=== PATIENT | male | born 1960 | race Caucasian/White ===

== ENCOUNTER 2017-05-30 13:53 | Outpatient (CLI) | payer OTHER ==
[~2017-05-30] VITALS: Ht 172.7 cm; Wt 82.0 kg
[2017-05-30 14:22] VITALS: Ht 172.7 cm; Wt 82.0 kg
[2017-05-30 14:23] VITALS: BP 142/87; PULSE 76; RESP 18
[2017-05-30] MEDS ORDERED: OMEG-135 PO (14:24)
[2017-05-30] MEDS ORDERED: LISI10TA2 PO (14:28)
[2017-05-30] MEDS ORDERED: MECL-77 PO (14:28)
[2017-05-30] MEDS ORDERED: FOLI-49 PO (14:28)
[2017-05-30] MEDS ORDERED: ASPI81TA3 PO (14:28)
[2017-05-30] MEDS ORDERED: ATOR80TA75 PO (14:28)
[2017-05-30] MEDS ORDERED: AMLO-147 PO (14:28)
[2017-05-30] MEDS ORDERED: CARV12.579 PO (14:28)
[2017-05-30] MEDS ORDERED: HYDR25TA6 PO (14:28)
--- NOTE | 2017-05-30 15:03 | PN ---
Date/Time of Note Date/Time of Note DATE: 05/30/17 TIME: 14:53 Outpatient Progress Note Chief Complaint CVA/hypertension/hyperlipidemia/ HPI CVA/patient was recently hospitalized with acute CVA, patient had right-sided weakness, patient also has a numbness, patient was slightly dizzy, patient had a CAT scan which did show patient had acute recent bilateral temporal right parietal region infarct tiny infarcts, patient also had a right frontal right temporal left coronal radial lacunar infarct, and patient also had small focus of chronic hemorrhagic in the right frontal lobe and a chronic microhemorrhages on the right thalamus, and a right temporal area, patient was discharged, patient on multiple medication, patient still have mild numbness on the right hand, and has sometimes difficulty in walking, unable to guide according to him on the right foot, patient has a cane, but left at home, minimal headache, no dizziness at present, no seizure activity, no fall, Hypertension/minimal headache, no dizziness at present, patient has impaired vision, has difficulty in reading, Hyperlipidemia/no xanthoma, on medication, Review of Systems Const: No Fever, no chills, no Wt. loss, no Fatigue, no diaphoresis. Eyes: No pain, no discharge, no redness, impaired vision, bilateral,, no foreign body. ENT: No pain, no bleeding, no congestion, no sore throat, no dysphagia, no discharge or rhinitis. Lymph: No adenopathy, no tender nodes, no lymphedema. Resp: No SOB, no cough, no sputum, no wheezing, no chest pain. CV: No chest pain, no palpitaions, no MEDEIROS, no PND, no edema. GI: Normal appetite, no pain, no nausea, no vomiting, no diarrhea, no blood, no constipation. : No frequency, no urgency, no dysuria, no hematuria, no flank pain, no discharge, no bleeding. Musc: no back pain, no neck pain, no knee pain, no restricted ROM. Skin: No rash, no skin lesions, no erythema, no laceration, no bruising, no pruritus. Neuro: Minimal AHN, no dizziness, no syncope, no seizure, patient has a right- sided minimal weakness, especially upper extremity, has numbness mostly, and has difficulty in walking some time because of guiding problem on the right leg, Endo: No polyuria, no polydypsia, no dry-skin, no temp-intolerance. Psych: No hallucinations, no depression, no anxiety, no suicidal ideation. Ext: No edema, no pain, no ulcer, right upper extremity numbness, minimal, minimal difficulty in walking, Physical Exam Vital Signs Date Time Temp Pulse Resp B/P Pulse Ox O2 Delivery O2 Flow Rate FiO2 05/30/17 14:23 98.2 76 18 142/87 96 Room Air General Appearance: A 56 year-old male who appears well-developed, well- nourished, in no acute distress. HEENT: Head normocephalic, atraumatic. Pupils equal, round, reactive to light and accommodate. Sclerae are no jaundice. Nasal turbinates pink without erythema or nasal discharge. Mucous membranes pink and moist without lesions. Oropharynx clear without any exudate or discharge. NECK: Supple. Trachea midline, No thyromegaly, No cervical lymphadenopathy, No mass, No carotid bruits, No JVD, Carotid pulses 2+ bilaterally. PULMONARY: Clear to auscultaion bilaterally, No retractions, Chest expansion symmetric bilaterally, no rales, no ronchi, no dulness on percussion. CARDIAC: Normal SI and S2, Regular rate and rythm, no murmur, gallop, or rub. GASTROINTESTINAL: Abdomen is soft, non-tender, Non Rigid, No distention, Positive bowel sounds x4 quadrants, Liver normal. SKIN: Warm, dry, no rash, no bruise, no echmosis. EXTREMITIES: Bilateral lower extremities no edema, no phlabitus, pulse palpable , no contracture minimal difficulty in walking, due to guiding problem,. MUSCULOSKELETAL: Spine Normal, Non-tender, Normal range of motion, No swelling, no deformity, no clubbing, or cyanosis, the patient has no edema to bilateral lower extremities, dorsalis pedis pulses palpable bilaterally. NEUROLOGIC: The patient is awake, alert, oriented, responding to yes/no questions appropriately, moving all extremities, cranial nerve intact, normal strenght, normal power, normal coordination, normal gait. At present, but patient states some time patient has difficulty in walking secondary to guiding the foot and the leg, PMH Allergy none Past history/recent acute CVA,/hypertension/hyperlipidemia Social Hx Patient smokes marijuana, no drinking or drugs, Family Hx Noncontributory Assessment/Plan Impression Acute CVA Hypertension Hyperlipidemia Impaired vision Plan Patient education done about hypertension and CVA, and hyperlipidemia, patient education done about diet activity exercise, patient wants to go for heavy duty exercise, patient explained, patient need to start slowly and increase gradually , fall precaution, seizure precaution, Patient encouraged to follow with the primary care physician, Patient also has slight impaired vision, and patient 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, will try to get authorization, Patient has to start a new job in couple of weeks, discussed with the patient in detail about his condition and situation, all questions were answered, to his satisfaction Patient forgot the cane at home, explained to patient he must carry cane all the time, otherwise he may fall down and have a head injury, or fracture, Patient refill some of medication today only, patient explained that he must be compliant on medication, otherwise next time he may have big CVA and he may , or paralyzed, completely Medications Home Meds Reported Medications Meclizine Hcl* (Meclizine Hcl*) 25 Mg Tablet, 25 MG PO TID, TAB 05/30/17 Atorvastatin* (Atorvastatin*) 80 Mg Tablet, 80 MG PO QHS, #30 TAB 05/30/17 Folic Acid* (Folic Acid*) 1 Mg Tablet, 1 MG PO DAILY, TAB 05/30/17 Aspirin (Aspirin) 81 Mg Chew, 81 MG PO DAILY, TAB.CHEW 05/30/17 Lisinopril* (Lisinopril*) 10 Mg Tablet, 10 MG PO DAILY, #30 TAB 05/30/17 Hydrochlorothiazide (Hydrochlorothiazide) 25 Mg Tablet, 25 MG PO DAILY, #30 TAB 05/30/17 Carvedilol* (Carvedilol*) 12.5 Mg Tablet, 12.5 MG PO BID, #60 TAB 05/30/17 Amlodipine Besylate* (Amlodipine Besylate*) 10 Mg Tablet, 10 MG PO DAILY, #30 TAB 05/30/17 [place]-3 Fatty Acids/Fish Oil (Fish Oil 1,000 mg Capsule) 1 Each Capsule, 1 EACH PO DAILY, CAP 05/30/17 FIONA ALVAREZ MD May 30, 2017 15:03
== END 2017-05-30 17:00 | disposition home or self-care (01) ==
LOC: DCC 13:53
PROVIDERS: ATTEND Internal Medicine
DX: I63.9 Cerebral infarction, unspecified (principal)
CPT/HCPCS: G0463

== ENCOUNTER 2017-06-05 14:22 | Outpatient (CLI) | payer OTHER ==
[~2017-06-05] VITALS: Ht 172.7 cm; Wt 83.6 kg
[~2017-06-05 14:22] MED LIST: AMLO-147 PO; ASPI81TA3 PO; ATOR80TA75 PO; CARV12.579 PO; FOLI-49 PO; HYDR25TA6 PO; LISI10TA2 PO; MECL-77 PO; OMEG-135 PO
[2017-06-05 15:21] VITALS: BP 181/97; PULSE 86; RESP 20; Ht 172.7 cm; Wt 83.6 kg
--- NOTE | 2017-06-05 15:36 | PN ---
Date/Time of Note Date/Time of Note DATE: 06/05/17 TIME: 15:31 Outpatient Progress Note Chief Complaint CVS/hypertension/hyperlipidemia HPI CVA/patient had recent CVA, right-sided weakness, much improved, patient able to walk without any problem, patient still has minimal right-sided numbness, no headache, no dizziness, no syncope, no seizure, Hypertension/no headache or dizziness, feels slightly tired, no nausea or vomiting, no new symptoms, patient blood pressure significantly elevated, patient has forgotten the medication this morning, has not taken any medication today, Hyperlipidemia/no xanthoma, on medication, Review of Systems Const: No Fever, no chills, no Wt. loss, slight fatigue, normal appetite, no diaphoresis. Eyes: No pain, no discharge, no redness, no visual change, no foreign body. ENT: No pain, no bleeding, no congestion, no sore throat, no dysphagia, no discharge or rhinitis. Lymph: No adenopathy, no tender nodes, no lymphedema. Resp: No SOB, no cough, no sputum, no wheezing, no chest pain. CV: No chest pain, no palpitaions, no MEDEIROS, no PND, no edema. GI: Normal appetite, no pain, no nausea, no vomiting, no diarrhea, no blood, no constipation. : No frequency, no urgency, no dysuria, no hematuria, no flank pain, no discharge, no bleeding. Musc: No back pain, no neck pain, no knee pain, no restricted ROM. Skin: No rash, no skin lesions, no erythema, no laceration, no bruising, no pruritus. Neuro: No AHN, no dizziness, no syncope, no seizure, no focal-weakness. Endo: No polyuria, no polydypsia, no dry-skin, no temp-intolerance. Psych: No hallucinations, no depression, no anxiety, no suicidal ideation. Ext: No edema, no pain, no ulcer, right-sided minimal weakness, improving Physical Exam Vital Signs Date Time Temp Pulse Resp B/P Pulse Ox O2 Delivery O2 Flow Rate FiO2 06/05/17 15:21 97.7 86 20 181/97 96 Room Air General Appearance: A 56 year-old male who appears well-developed, well- nourished, in no acute distress. HEENT: Head normocephalic, atraumatic. Pupils equal, round, reactive to light and accommodate. Sclerae are no jaundice. Nasal turbinates pink without erythema or nasal discharge. Mucous membranes pink and moist without lesions. Oropharynx clear without any exudate or discharge. NECK: Supple. Trachea midline, No thyromegaly, No cervical lymphadenopathy, No mass, No carotid bruits, No JVD, Carotid pulses 2+ bilaterally. PULMONARY: Clear to auscultaion bilaterally, No retractions, Chest expansion symmetric bilaterally, no rales, no ronchi, no dulness on percussion. CARDIAC: Normal SI and S2, Regular rate and rythm, no murmur, gallop, or rub. GASTROINTESTINAL: Abdomen is soft, non-tender, Non Rigid, No distention, Positive bowel sounds x4 quadrants, Liver normal. SKIN: Warm, dry, no rash, no bruise, no echmosis. EXTREMITIES: Bilateral lower extremities normal, no edema, no phlabitus, pulse palpable, no contracture. MUSCULOSKELETAL: Spine Normal, Non-tender, Normal range of motion, No swelling, no deformity, no clubbing, or cyanosis, the patient has no edema to bilateral lower extremities, dorsalis pedis pulses palpable bilaterally. NEUROLOGIC: The patient is awake, alert, oriented, responding to yes/no questions appropriately, moving all extremities no weakness on right side, upper extremity slightly more numbness,, cranial nerve intact, normal strenght, normal power, normal coordination, early stable gait. PMH No allergy, No change in past medical history Social Hx No change Family Hx No change Assessment/Plan Impression Recent CVA Hypertension Hyperlipidemia Plan Patient education done again, patient was told last time to take medication regular basis, patient states that patient forgot the medication this morning, has not taken any medication, patient of blood pressure significantly elevated, Patient states that even with the medication his blood pressure was 160 when he checked at the drugstore, We will increase lisinopril to 40 mg daily, patient has a 10 mg tablet, patient take 2 tablet in the morning to tablet in the evening, and hold if the blood pressure is low, Patient is also given a prescription of lisinopril 40 mg daily, Again stressed to take medication regular basis, and patient again told that if the blood pressure remains elevated can have GA, another CVA, or cardiac arrest , patient understands it, patient will go home and take the medication and also will buy a blood pressure monitoring device, Patient also encouraged to follow with the primary care physician, Medications Home Meds Reported Medications Meclizine Hcl* (Meclizine Hcl*) 25 Mg Tablet, 25 MG PO TID, TAB 05/30/17 Atorvastatin* (Atorvastatin*) 80 Mg Tablet, 80 MG PO QHS, #30 TAB 05/30/17 Folic Acid* (Folic Acid*) 1 Mg Tablet, 1 MG PO DAILY, TAB 05/30/17 Aspirin (Aspirin) 81 Mg Chew, 81 MG PO DAILY, TAB.CHEW 05/30/17 Lisinopril* (Lisinopril*) 10 Mg Tablet, 10 MG PO DAILY, #30 TAB 05/30/17 Hydrochlorothiazide (Hydrochlorothiazide) 25 Mg Tablet, 25 MG PO DAILY, #30 TAB 05/30/17 Carvedilol* (Carvedilol*) 12.5 Mg Tablet, 12.5 MG PO BID, #60 TAB 05/30/17 Amlodipine Besylate* (Amlodipine Besylate*) 10 Mg Tablet, 10 MG PO DAILY, #30 TAB 05/30/17 [place]-3 Fatty Acids/Fish Oil (Fish Oil 1,000 mg Capsule) 1 Each Capsule, 1 EACH PO DAILY, CAP 05/30/17 FIONA ALVAREZ MD Jun 05, 2017 15:36
== END 2017-06-05 16:38 | disposition home or self-care (01) ==
LOC: DCC 14:22
PROVIDERS: ATTEND Internal Medicine
DX: I63.9 Cerebral infarction, unspecified (principal); G81.91 Hemiplegia, unspecified affecting right dominant side; I10 Essential (primary) hypertension; E78.5 Hyperlipidemia, unspecified; Z79.82 Long term (current) use of aspirin

== ENCOUNTER 2017-06-18 14:17 | Inpatient (IN) | payer OTHER ==
[~2017-06-18] VITALS: Ht 172.7 cm; Wt 73.0 kg
[2017-06-18 15:00] VITALS: BP 138/92; PULSE 81; RESP 20
[2017-06-18 15:14] VITALS: Ht 172.7 cm; Wt 73.0 kg
[2017-06-18 16:55] LABS: ADD UMIC YES; UR ASCORBIC ACID NEGATIVE (NEGATIVE); UR BILIRUBIN (Dip) NEGATIVE (NEGATIVE); UR BLOOD (Dip) 1+ mg/dL (NEGATIVE); UR CLARITY CLEAR (CLEAR); UR COLOR YELLOW (YELLOW); UR GLUCOSE (Dip) NEGATIVE (NEGATIVE); UR KETONES (Dip) NEGATIVE (NEGATIVE); UR LEUKOCYTE ESTERASE (Dip) NEGATIVE Leu/ul (NEGATIVE); UR MUCUS FEW /HPF (NONE SEEN); UR NITRITE (Dip) NEGATIVE (NEGATIVE); UR RBC 2 /HPF (0-5); UR SPECIFIC GRAVITY (Dip) 1.016 (1.003-1.030); UR TOTAL PROTEIN (Dip) NEGATIVE (NEGATIVE); UR UROBILINOGEN (Dip) NEGATIVE (NEGATIVE)
[2017-06-18 20:00] VITALS: BP 140/65; RESP 18
[2017-06-18] MEDS: ATORVASTATIN 80 MG TAB PO SCH (20:26)
[2017-06-18] MEDS: FISH OIL 1,000 MG CAP PO SCH (20:30)
[2017-06-18] MEDS: L ACIDOPHIL/B LACTIS/B LONGUM CAPSULE PO SCH (20:30)
[2017-06-19 02:00] VITALS: BP 138/67; RESP 18
[2017-06-19 06:49] LABS: BASOPHILS % 0.5 % (0.0-2.0); EOSINOPHILS # 0.2 10^3/ul (0.0-0.5); EOSINOPHILS % 3.4 % (0.0-7.0); HEMATOCRIT 40.9 % (42.0-52.0); HEMOGLOBIN 13.2 g/dl (14.0-18.0); LYMPHOCYTES # 0.9 10^3/ul (0.8-2.9); LYMPHOCYTES % 14.1 % (15.0-51.0); MEAN CORPUSCULAR HEMOGLOBIN 24.8 pg (29.0-33.0); MEAN CORPUSCULAR HGB CONC 32.3 g/dl (32.0-37.0); MEAN CORPUSCULAR VOLUME 76.9 fl (82.0-101.0); MEAN PLATELET VOLUME 9.3 fl (7.4-10.4); MONOCYTE # 0.7 10^3/ul (0.3-0.9); MONOCYTES % 11.2 % (0.0-11.0); NEUTROPHIL # 4.6 10^3/ul (1.6-7.5); NEUTROPHILS % 70.3 % (39.0-77.0); PLATELET COUNT 246 10^3/UL (140-415); RED BLOOD COUNT 5.32 10^6/ul (4.70-6.10); RED CELL DISTRIBUTION WIDTH 16.5 % (11.5-14.5); WHITE BLOOD COUNT 6.5 10^3/ul (4.8-10.8)
[2017-06-19 07:11] LABS: ALBUMIN 3.8 g/dl (3.3-4.9); BILIRUBIN,INDIRECT 0.5 mg/dl (0-1.1); BILIRUBIN,TOTAL 0.5 mg/dl (0.2-1.3); CALCIUM 9.4 mg/dl (8.4-10.2); CREATININE 1.35 mg/dl (0.61-1.24); POTASSIUM 3.7 mmol/L (3.5-5.1); TOTAL PROTEIN 7.6 g/dl (6.1-8.1)
[2017-06-19 07:45] VITALS: BP 130/101; RESP 16
[2017-06-19] MEDS: L ACIDOPHIL/B LACTIS/B LONGUM CAPSULE PO SCH ×2 (09:00→20:48)
[2017-06-19] MEDS: FISH OIL 1,000 MG CAP PO SCH ×2 (09:40→20:48)
[2017-06-19] MEDS: FOLIC ACID 1 MG TAB PO SCH (09:43)
[2017-06-19] MEDS: ASPIRIN 81 MG TAB PO SCH (09:43)
--- NOTE | 2017-06-19 12:03 | CONS ---
DATE OF ADMISSION: 06/18/2017 DATE OF CONSULTATION: 06/19/2017 HISTORY OF PRESENT ILLNESS: This is a 56-year-old gentleman, with history of chronic kidney disease, hypertension, hyperlipidemia, alcohol abuse per chart, and chronic hepatitis B, who presented with 7-day history of increasing right-sided weakness and dysarthria. Found to have an embolic CVA of undetermined source. Found to have multiple bilateral anterior and posterior circulation infarcts with no evidence of vasculitis and no evidence of hypercoagulable state or source of emboli. Extensive workup was performed by Neurology at that time, and patient has now been transferred to [facility] for continuing care. PAST MEDICAL HISTORY: As above. MEDICATION: Per chart. ALLERGIES: NONE. PHYSICAL EXAMINATION: GENERAL APPEARANCE: He is a right-handed gentleman, well nourished, well developed. VITAL SIGNS: Temperature 98, pulse is 79, blood pressure 130/101, O2 sat 96 percent on room air. NECK: Supple. No JVD or lymphadenopathy. HEART: S1, S2. No added sounds or murmurs. CHEST: Diminished air entry bilaterally but no rales or wheezes. ABDOMEN: Soft, nontender. No guarding or rebound. EXTREMITIES: No cyanosis, clubbing or edema. NEUROLOGIC: Mild right-sided weakness and an obvious facial droop is noted. IMPRESSION AND PLAN: 1. Recent multiple bihemispheric brainstem embolic infarcts. 2. Neurological deficit noted. 3. History of hypertension. 4. Chronic kidney disease. PLAN: 1. Continue current medications of Coreg and lisinopril, aspirin, folic acid. 2. Monitor blood pressure. May require increasing doses. 3. Will consider neurology consult. Currently on aspirin. 4. Echocardiogram, which previously showed preserved ejection fraction with no evidence of ASD or PFO. We will have Dr. Manuel Treadwell follow for nephrology. Dictated By: Shay Garcia MD /ebenezer/singh /Document#: [id number]
--- NOTE | 2017-06-19 16:46 | CONS ---
Date/Time of Note Date/Time of Note DATE: 06/19/17 TIME: 16:45 Assessment/Plan Assessment/Plan Additional Assessment/Plan 1. 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 h/o CKD due to HTN 3. Multiple Hemispheric Brainstem embolic infracts 4. Hypertension Plan: US renal to assess for kidney size, echogenicity and to assess for hydronephrosis Continue Lisinopril for HTN- if Creatinine continues to rise then we will stop it BP control, if Needed we will add amlodipine for better BP control Thanks for consultation, we will continue to follow up Consultation Date/Type/Reason Admit Date/Time Jun 18, 2017 at 14:17 Date of Consultation: Jun 19, 2017 Type of Consultation: NEPHROLOGY Reason for Consultation acute kidney injury Referring Provider: BRIAN RILEY [facility], [facility] Hx of Present Illness 56-year-old gentleman, with history of chronic kidney disease, hypertension, hyperlipidemia, alcohol abuse per chart, and chronic hepatitis B, who presented with 7-day history of increasing right-sided weakness and dysarthria. Found to have an embolic CVA of undetermined source. Found to have multiple bilateral anterior and posterior circulation infarcts with no evidence of vasculitis and no evidence of hypercoagulable state or source of emboli. Extensive workup was performed by Neurology at that time, and patient has now been transferred to [facility] for continuing care. Noted to have creatinine 1.35- and renal has been consulted for it. Constitutional: no complaints Eyes: no complaints ENT: no complaints Respiratory: no complaints Cardiovascular: no complaints Gastrointestinal: no complaints Genitourinary: no complaints Musculoskeletal: no complaints Skin: no complaints Neurologic: no complaints Endocrine: no complaints Lymphatic: no complaints Psychological: no complaints Immunologic: no complaints Past Medical History Medical History: high cholesterol, hypertension, other (CKD, Alcohol abuse, Hepaitit B) Past Surgical History Past Surgical Hx: no surgical history Family History Significant Family History: no pertinent family hx Social History Alcohol Use: none Smoking Status: Former smoker Drug Use: none Exam/Review of Systems Vital Signs Vitals Vital Signs Date Time Temp Pulse Resp B/P Pulse Ox O2 Delivery O2 Flow Rate FiO2 06/19/17 07:45 98.3 79 16 130/101 96 06/18/17 15:00 Room Air Intake and Output 06/18/17 06/18/17 06/19/17 15:00 23:00 07:00 Intake Total 790 ml Output Total 150 ml 350 ml Balance -150 ml 440 ml Exam Constitutional: alert, oriented Psych: no complaints Head: normocephalic Eyes: nl conjunctiva ENMT: nl external ears & nose Neck: supple Respiratory: clear to auscultation, diminished breath sounds Cardiovascular: nl pulses, regular rate and rhythm Gastrointestinal: non-tender, soft Musculoskeletal: nl extremities to inspection, nl gait and stance Neurological: COLORIST II-XII intact Skin: nl turgor Lymph: nl lymph nodes Results Result Diagram: 06/19/17 0624 06/19/17 0624 Results 24 hrs Laboratory Tests Test 06/19/17 06:24 White Blood Count 6.5 Red Blood Count 5.32 Hemoglobin 13.2 L Hematocrit 40.9 L Mean Corpuscular Volume 76.9 L Mean Corpuscular Hemoglobin 24.8 L Mean Corpuscular Hemoglobin Concent 32.3 Red Cell Distribution Width 16.5 H Platelet Count 246 Mean Platelet Volume 9.3 Neutrophils % 70.3 Lymphocytes % 14.1 L Monocytes % 11.2 H Eosinophils % 3.4 Basophils % 0.5 Nucleated Red Blood Cells % 0.0 Neutrophils # 4.6 Lymphocytes # 0.9 Monocytes # 0.7 Eosinophils # 0.2 Basophils # 0.0 Nucleated Red Blood Cells # 0.0 Sodium Level 139 Potassium Level 3.7 Chloride Level 110 Carbon Dioxide Level 22 Anion Gap 11 Blood Urea Nitrogen 13 Creatinine 1.35 H Glucose Level 104 Calcium Level 9.4 Total Bilirubin 0.5 Direct Bilirubin 0.00 Indirect Bilirubin 0.5 Aspartate Amino Transf (AST/SGOT) 52 H Alanine Aminotransferase (ALT/SGPT) 55 Alkaline Phosphatase 74 Total Protein 7.6 Albumin 3.8 Globulin 3.80 H Albumin/Globulin Ratio 1.00 Medications Medications Current Medications Aspirin (Aspirin) 81 mg DAILY PO Last administered on 06/19/17 09:43; Admin Dose 81 MG; Start 06/19/17 at 09:00 Atorvastatin Calcium (Lipitor) 80 mg DAILY@21 PO Last administered on 20:26; Admin Dose 80 MG; Start 06/18/17 at 21:00 Folic Acid (Folic Acid) 1 mg DAILY PO Last administered on 06/19/17 09:43; Admin Dose 1 MG; Start 06/19/17 at 09:00 Carvedilol (Coreg) 12.5 mg BID PO Last administered on 06/19/17 09:43; Admin Dose 12.5 MG; Start 06/18/17 at 21:00 Fish Oil (Fish Oil) 1,000 mg BID PO Last administered on 06/19/17 09:40; Admin Dose 1,000 MG; Start 06/18/17 at 21:00 Lisinopril (Zestril) 10 mg DAILY PO ; Start 06/19/17 at 18:00 Lactobacillus Acidophilus (Florajen3 Capsule) 1 each BID PO ; Start 06/18/17 at 21:00 TEGAN ALVAREZ MD Jun 19, 2017 16:46
[2017-06-19] MEDS: LISINOPRIL 10 MG TAB PO SCH (17:52)
[2017-06-19] MEDS ORDERED: MAGNESIUM HYDROXIDE 30ML CUP PO PRN (18:30)
[2017-06-19] MEDS ORDERED: BISACODYL 10 MG SUPP PR PRN (18:30)
[2017-06-19] MEDS ORDERED: ACETAMINOPHEN 325 MG TAB PO PRN (18:30)
[2017-06-19] MEDS: DOCUSATE SODIUM 100 MG CAP PO SCH (20:48)
[2017-06-19] MEDS: ATORVASTATIN 80 MG TAB PO SCH (20:48)
--- NOTE | 2017-06-19 22:47 | RADRPT ---
PROCEDURE: RENAL ULTRASOUND: CLINICAL INDICATION: 56 years of age, male . No acute kidney injury . COMPARISON: None available. TECHNIQUE: Multiple transverse and longitudinal sonographic iqbal scale images of the kidneys and jaylan dder were obtained, supplemented with color, power, and spectral Doppler imaging. FINDINGS: Right kidney: Length: 9.4 cm. Appearance: Normal parenchymal appearance. Negative for hydronephrosis. Left kidney: Length: 10.8 cm. Appearance: Normal parenchymal appearance. Negative for hydronephrosis. Bladder: Partially filled. Apparent wall thickening is likely due to the contracted state of the uri nary bladder. Ureteral jets: Not visualized. Additional comment: None. IMPRESSION: Normal renal size and parenchymal echogenicity. Negative for hydronephrosis. RPTAT: HCTS Physician Randolph Date Time Electronically viewed and signed by Physician Randolph on 06/19/2017 22:47 /
--- NOTE | 2017-06-20 01:33 | CONS ---
DATE OF ADMISSION: 06/18/2017 DATE OF CONSULTATION: 06/19/2017 Rehabilitation Post Admission Physician Evaluation REHABILITATION IMPAIRMENT CATEGORY: CVA with right-sided weakness. ACTIVE COMORBIDITIES: 1. Hypertension. 2. Hyperlipidemia. 3. Hyponatremia. 4. Dysphagia. 5. History of hepatitis B. 6. History of chronic kidney disease. 7. Impairments in self-care, mobility and cognition. 8. Acute on chronic kidney disease. HISTORY OF PRESENT ILLNESS: The patient is a 56-year-old gentleman with a history of hypertension, hyperlipidemia, chronic kidney disease who was noted to have right-sided weakness while at work. He was brought to the [facility] where MRI did demonstrate recent infarct in the luz, right medulla, inferior left cerebellar hemisphere, right temporal lobe, left temporal lobe, right parietal lobe, and right basal ganglia. The patient's hospital course was notable for acute renal failure. The patient also noted to have significant impairments in self- care and mobility, as compared to baseline. The patient has been cleared to transfer to the rehabilitation unit for comprehensive interdisciplinary rehab care. FUNCTIONAL HISTORY: Prior to recent events, he was independent in self-care tasks and mobility. Currently, he requires maximal assist for self-care and mobility tasks. SOCIAL HISTORY: The patient reports living at home and hopes to return there upon discharge. PAST MEDICAL HISTORY: 1. Chronic kidney disease. 2. Hypertension. 3. Hyperlipidemia. MEDICATION: 1. Aspirin 81 mg p.o. daily. 2. Atorvastatin 80 mg p.o. q.h.s. 3. Folic acid 1 mg p.o. daily. 4. Coreg 12.5 mg p.o. b.i.d. 5. Fish oil. 6. Lisinopril 10 mg p.o. daily. ALLERGIES: NO KNOWN DRUG ALLERGIES. PHYSICAL EXAMINATION: VITALS: The patient is currently afebrile with stable vital signs. HEENT: The extraocular motions appear intact. The patient is with decreased nasal labial fold. LUNGS: Clear. HEART: S1, S2. ABDOMEN: Soft and nontender. Positive bowel sounds. NEUROLOGICALLY: He is awake and alert. He has a notable dysarthria. He will follow simple one-step commands. He demonstrates good strength in the left upper and lower. The patient is with notable right-sided weakness. PLAN: The patient has been admitted for comprehensive interdisciplinary acute rehab and is anticipated to tolerate 3 hours of daily therapy in divided doses for at least 5/7 days a week. The treatment plan will include: 1. Physical therapy to focus on bed mobility, transfers and household ambulation with goal of having patient reach a standby assist level. 2. Occupational therapy to focus on hygiene, grooming, dressing, bathing and toileting activities with goal of having patient reach standby assist level. 3. Rehabilitation speech therapy for full cognitive assessment and retraining in addition to dysphagia management with the goal of having patient return to baseline cognition and be able to express needs and meet nutritional needs by mouth. 4. Rehabilitation nursing for carry over therapeutic interventions, the goal of continent to bowel and bladder, and the goal of patient and family education with regards to the aforementioned issues. Rehabilitation Barier: Cognition Intervention for barrier: Speech therapy ESTIMATED LENGTH OF STAY: Fourteen days. DISPOSITION GOAL: Home. I acknowledged. I performed a full physical examination on this patient within 24 hours of admission to the rehabilitation unit. I believe the patient is a good candidate for comprehensive interdisciplinary rehab care and is anticipated to make reasonable goals in a reasonable period of time as outlined above. Dictated By: Lit Britt MD /ebenezer/bebeto /Document#: [id number]
[2017-06-20 02:00] VITALS: BP 135/78; RESP 18
[2017-06-20 08:30] VITALS: BP 133/95; PULSE 89; RESP 20
[2017-06-20] MEDS: L ACIDOPHIL/B LACTIS/B LONGUM CAPSULE PO SCH ×2 (09:00→20:29)
[2017-06-20] MEDS: SENNA TAB PO SCH (11:03)
[2017-06-20] MEDS: FOLIC ACID 1 MG TAB PO SCH (11:03)
[2017-06-20] MEDS: FISH OIL 1,000 MG CAP PO SCH ×2 (11:05→20:29)
[2017-06-20] MEDS: DOCUSATE SODIUM 100 MG CAP PO SCH ×2 (11:05→20:29)
[2017-06-20] MEDS: LISINOPRIL 10 MG TAB PO SCH (11:06)
[2017-06-20] MEDS: ASPIRIN 81 MG TAB PO SCH (11:06)
--- NOTE | 2017-06-20 13:30 | CONS ---
Date/Time of Note Date/Time of Note DATE: 06/20/17 TIME: 13:29 Consult Date/Type/Reason Admit Date/Time Jun 18, 2017 at 14:17 Initial Consult Date 06/19/17 Type of Consultation: NEPHROLOGY Ordering Provider: B[facility]AN RLIEY MD, [facility] Subjective Feeling better today Objective pulm-cta mod assist Vital Signs Date Time Temp Pulse Resp B/P Pulse Ox O2 Delivery O2 Flow Rate FiO2 06/20/17 08:30 98.2 89 20 133/95 96 Room Air Intake and Output 06/19/17 06/19/17 06/20/17 15:00 23:00 07:00 Intake Total 400 ml 120 ml 490 ml Output Total 150 ml Balance 400 ml 120 ml 340 ml Results/Medications Result Diagram: 06/19/17 0624 06/19/17 0624 Medications Current Medications Aspirin (Aspirin) 81 mg DAILY PO Last administered on 06/20/17 11:06; Admin Dose 81 MG; Start 06/19/17 at 09:00 Atorvastatin Calcium (Lipitor) 80 mg DAILY@21 PO Last administered on 20:48; Admin Dose 80 MG; Start 06/18/17 at 21:00 Folic Acid (Folic Acid) 1 mg DAILY PO Last administered on 06/20/17 11:03; Admin Dose 1 MG; Start 06/19/17 at 09:00 Carvedilol (Coreg) 12.5 mg BID PO Last administered on 06/20/17 11:05; Admin Dose 12.5 MG; Start 06/18/17 at 21:00 Fish Oil (Fish Oil) 1,000 mg BID PO Last administered on 06/20/17 11:05; Admin Dose 1,000 MG; Start 06/18/17 at 21:00 Lisinopril (Zestril) 10 mg DAILY PO Last administered on 06/20/17 11:06; Admin Dose 10 MG; Start 06/19/17 at 18:00 Lactobacillus Acidophilus (Florajen3 Capsule) 1 each BID PO Last administered on 06/19/17 20:48; Admin Dose 1 EACH; Start 06/18/17 at 21:00 Docusate Sodium (Colace) 100 mg BID PO Last administered on 06/20/17 11:05; Admin Dose 100 MG; Start 06/19/17 at 21:00 Senna (Senokot) 1 tab DAILY PO Last administered on 06/20/17t 11:03; Admin Dose 1 TAB; Start 06/20/17 at 09:00 Acetaminophen (Tylenol Tab) 650 mg Q4H PRN PO PAIN AND OR ELEVATED TEMP; Start 06/19/17 at 18:30 Bisacodyl (Dulcolax Supp) 10 mg DAILY PRN [place] CONSTIPATION; Start 06/19/17 at 18 :30 Magnesium Hydroxide (Milk Of Mag) 30 ml DAILY PRN PO CONSTIPATION; Start at 18:30 Lactulose (Enulose) 20 gm DAILY PRN PO CONSTIPATION; Start 06/19/17 at 18:30 Assessment/Plan Additional Assessment/Plan Rehab- CVA with right-sided weakness. Tolerating rehabprogram Hypertension. Hyperlipidemia. Hyponatremia. Dysphagia. History of hepatitis B. History of chronic kidney disease. Acute on chronic kidney disease. TYRON HARMON MD Jun 20, 2017 13:30
--- NOTE | 2017-06-20 14:50 | CONS ---
Date/Time of Note Date/Time of Note DATE: 06/20/17 TIME: 14:48 Assessment/Plan Assessment/Plan Additional Assessment/Plan Assessment and plan; 1. Patient admitted with CVA involving right side with interval improvement. Still exhibiting weakness. 2. History of renal insufficiency. 3. Hypertension. Continue current supportive care. Consultation Date/Type/Reason Admit Date/Time Jun 18, 2017 at 14:17 Initial Consult Date 06/19/17 Type of Consultation: Internal medicine Referring Provider: BRIAN RILEY MD, [facility] 24 HR Interval Summary Free Text/Dictation Patient condition stable. Remains awake and alert. Eating lunch at bedside. General exam; middle-aged male, awake and alert. Currently in no distress. Exam/Review of Systems Vital Signs Vitals Vital Signs Date Time Temp Pulse Resp B/P Pulse Ox O2 Delivery O2 Flow Rate FiO2 06/20/17 08:30 98.2 89 20 133/95 96 Room Air Intake and Output 06/19/17 06/19/17 06/20/17 14:59 22:59 06:59 Intake Total 400 ml 120 ml 490 ml Output Total 150 ml Balance 400 ml 120 ml 340 ml Exam HEENT exam; supple neck, no JVD. No lymphadenopathy. Midline trachea. No thyromegaly. Patient has fair dentition. Pupils are equal and reactive to light. Chest exam; clear to auscultation. S1-S2 audible, no murmurs. Regular rhythm. Abdomen exam; soft, nontender. No organomegaly. Bowel sounds audible. Extremity exam; no peripheral edema. HOME HEALTH PROVIDER exam; patient has mild right-sided weakness. Results Result Diagram: 06/19/1762306/19/17 0624 Medications Medications Current Medications Aspirin (Aspirin) 81 mg DAILY PO Last administered on 06/20/17 11:06; Admin Dose 81 MG; Start 06/19/17 at 09:00 Atorvastatin Calcium (Lipitor) 80 mg DAILY@21 PO Last administered on 20:48; Admin Dose 80 MG; Start 06/18/17 at 21:00 Folic Acid (Folic Acid) 1 mg DAILY PO Last administered on 06/20/17 11:03; Admin Dose 1 MG; Start 06/19/17 at 09:00 Carvedilol (Coreg) 12.5 mg BID PO Last administered on 06/20/17 11:05; Admin Dose 12.5 MG; Start 06/18/17 at 21:00 Fish Oil (Fish Oil) 1,000 mg BID PO Last administered on 06/20/17 11:05; Admin Dose 1,000 MG; Start 06/18/17 at 21:00 Lisinopril (Zestril) 10 mg DAILY PO Last administered on 06/20/17 11:06; Admin Dose 10 MG; Start 06/19/17 at 18:00 Lactobacillus Acidophilus (Florajen3 Capsule) 1 each BID PO Last administered on 06/19/17 20:48; Admin Dose 1 EACH; Start 06/18/17 at 21:00 Docusate Sodium (Colace) 100 mg BID PO Last administered on 06/20/17 11:05; Admin Dose 100 MG; Start 06/19/17 at 21:00 Senna (Senokot) 1 tab DAILY PO Last administered on 06/20/17 11:03; Admin Dose 1 TAB; Start 06/20/17 at 09:00 Acetaminophen (Tylenol Tab) 650 mg Q4H PRN PO PAIN AND OR ELEVATED TEMP; Start 06/19/17 at 18:30 Bisacodyl (Dulcolax Supp) 10 mg DAILY PRN [place] CONSTIPATION; Start 06/19/17 at 18 :30 Magnesium Hydroxide (Milk Of Mag) 30 ml DAILY PRN PO CONSTIPATION; Start at 18:30 Lactulose (Enulose) 20 gm DAILY PRN PO CONSTIPATION; Start 06/19/17 at 18:30 ELADIA KOLB Jun 20, 2017 14:50
--- NOTE | 2017-06-20 16:02 | CONS ---
Date/Time of Note Date/Time of Note DATE: 06/20/17 TIME: 16:01 Assessment/Plan Assessment/Plan Additional Assessment/Plan 1. 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 h/o CKD due to HTN 3. Multiple Hemispheric Brainstem embolic infracts 4. Hypertension Plan: reanl US negative for hydronephrosis, will order BMP in AM labs to f surendra zendejasp on Cr Continue Lisinopril for HTN- if Creatinine continues to rise then we will stop it BP control, if Needed we will add amlodipine for better BP control will follow up Consultation Date/Type/Reason Admit Date/Time Jun 18, 2017 at 14:17 Initial Consult Date 06/19/17 Type of Consultation: NEPHROLOGY Referring Provider: BRIAN RILEY MD, [facility] 24 HR Interval Summary Free Text/Dictation BP stable, partifcipating iN rehab Exam/Review of Systems Vital Signs Vitals Vital Signs Date Time Temp Pulse Resp B/P Pulse Ox O2 Delivery O2 Flow Rate FiO2 06/20/17 08:30 98.2 89 20 133/95 96 Room Air Intake and Output 06/19/17 06/19/17 06/20/17 15:00 23:00 07:00 Intake Total 400 ml 120 ml 490 ml Output Total 150 ml Balance 400 ml 120 ml 340 ml Exam Constitutional: alert, oriented Respiratory: clear to auscultation, diminished breath sounds Cardiovascular: nl pulses, regular rate and rhythm Gastrointestinal: non-tender, soft Musculoskeletal: nl extremities to inspection, nl gait and stance Neurological: 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 Skin: nl turgor Lymph: nl lymph nodes Results Result Diagram: 06/19/1724 06/19/1724 Medications Medications Current Medications Aspirin (Aspirin) 81 mg DAILY PO Last administered on 06/20/17 11:06; Admin Dose 81 MG; Start 06/19/17 at 09:00 Atorvastatin Calcium (Lipitor) 80 mg DAILY@21 PO Last administered on 20:48; Admin Dose 80 MG; Start 06/18/17 at 21:00 Folic Acid (Folic Acid) 1 mg DAILY PO Last administered on 06/20/17 11:03; Admin Dose 1 MG; Start 06/19/17 at 09:00 Carvedilol (Coreg) 12.5 mg BID PO Last administered on 06/20/17 11:05; Admin Dose 12.5 MG; Start 06/18/17 at 21:00 Fish Oil (Fish Oil) 1,000 mg BID PO Last administered on 06/20/17 11:05; Admin Dose 1,000 MG; Start 06/18/17 at 21:00 Lisinopril (Zestril) 10 mg DAILY PO Last administered on 06/20/17 11:06; Admin Dose 10 MG; Start 06/19/17 at 18:00 Lactobacillus Acidophilus (Florajen3 Capsule) 1 each BID PO Last administered on 06/19/17 20:48; Admin Dose 1 EACH; Start 06/18/17 at 21:00 Docusate Sodium (Colace) 100 mg BID PO Last administered on 06/20/17 11:05; Admin Dose 100 MG; Start 06/19/17 at 21:00 Senna (Senokot) 1 tab DAILY PO Last administered on 06/20/17 11:03; Admin Dose 1 TAB; Start 06/20/17 at 09:00 Acetaminophen (Tylenol Tab) 650 mg Q4H PRN PO PAIN AND OR ELEVATED TEMP; Start 06/19/17 at 18:30 Bisacodyl (Dulcolax Supp) 10 mg DAILY PRN [place] CONSTIPATION; Start 06/19/17 at 18 :30 Magnesium Hydroxide (Milk Of Mag) 30 ml DAILY PRN PO CONSTIPATION; Start at 18:30 Lactulose (Enulose) 20 gm DAILY PRN PO CONSTIPATION; Start 06/19/17 at 18:30 TEGAN ALVAREZ MD Jun 20, 2017 16:02
[2017-06-20 16:30] VITALS: BP 135/86; RESP 18
[2017-06-20 20:00] VITALS: BP 131/89; RESP 18
[2017-06-20] MEDS: ATORVASTATIN 80 MG TAB PO SCH (20:29)
[2017-06-21 02:00] VITALS: BP 132/78; RESP 18
[2017-06-21 07:30] VITALS: BP 124/86; RESP 18
[2017-06-21 07:43] LABS: CALCIUM 9.4 mg/dl (8.4-10.2); CREATININE 1.42 mg/dl (0.61-1.24); POTASSIUM 3.9 mmol/L (3.5-5.1)
[2017-06-21] MEDS: FOLIC ACID 1 MG TAB PO SCH (08:34)
[2017-06-21] MEDS: FISH OIL 1,000 MG CAP PO SCH ×2 (08:34→20:56)
[2017-06-21] MEDS: SENNA TAB PO SCH (08:35)
[2017-06-21] MEDS: LISINOPRIL 10 MG TAB PO SCH (08:35)
[2017-06-21] MEDS: ASPIRIN 81 MG TAB PO SCH (08:35)
[2017-06-21] MEDS: DOCUSATE SODIUM 100 MG CAP PO SCH ×2 (08:35→20:56)
[2017-06-21 08:40] VITALS: BP 130/92; PULSE 82; RESP 16
[2017-06-21] MEDS: L ACIDOPHIL/B LACTIS/B LONGUM CAPSULE PO SCH ×2 (09:18→20:56)
--- NOTE | 2017-06-21 10:26 | CONS ---
Date/Time of Note Date/Time of Note DATE: 06/21/17 TIME: 10:25 Consult Date/Type/Reason Admit Date/Time Jun 18, 2017 at 14:17 Initial Consult Date 06/19/17 Type of Consultation: NEPHROLOGY Ordering Provider: [facility] RILEY MD, [facility] Subjective Comfortable Objective pulm-cta mod assist Vital Signs Date Time Temp Pulse Resp B/P Pulse Ox O2 Delivery O2 Flow Rate FiO2 06/21/17 08:40 82 16 130/92 98 Room Air 06/21/17 07:30 98.8 Intake and Output 06/20/17 06/20/17 06/21/17 15:00 23:00 07:00 Intake Total 600 ml 120 ml Balance 600 ml 120 ml Results/Medications Result Diagram: 06/19/17 0624 06/21/17 0611 Results 24 hrs Laboratory Tests Test 06/21/17 06:11 Sodium Level 139 Potassium Level 3.9 Chloride Level 110 Carbon Dioxide Level 20 L Anion Gap 13 Blood Urea Nitrogen 17 Creatinine 1.42 H Glucose Level 103 Calcium Level 9.4 Medications Current Medications Aspirin (Aspirin) 81 mg DAILY PO Last administered on 06/21/17 08:35; Admin Dose 81 MG; Start 06/19/17 at 09:00 Atorvastatin Calcium (Lipitor) 80 mg DAILY@21 PO Last administered on 20:29; Admin Dose 80 MG; Start 06/18/17 at 21:00 Folic Acid (Folic Acid) 1 mg DAILY PO Last administered on 06/21/17 08:34; Admin Dose 1 MG; Start 06/19/17 at 09:00 Carvedilol (Coreg) 12.5 mg BID PO Last administered on 06/21/17 08:35; Admin Dose 12.5 MG; Start 06/18/17 at 21:00 Fish Oil (Fish Oil) 1,000 mg BID PO Last administered on 06/21/17 08:34; Admin Dose 1,000 MG; Start 06/18/17 at 21:00 Lisinopril (Zestril) 10 mg DAILY PO Last administered on 06/21/17 08:35; Admin Dose 10 MG; Start 06/19/17 at 18:00 Lactobacillus Acidophilus (Florajen3 Capsule) 1 each BID PO Last administered on 06/21/17 09:18; Admin Dose 1 EACH; Start 06/18/17 at 21:00 Docusate Sodium (Colace) 100 mg BID PO Last administered on 06/21/17 08:35; Admin Dose 100 MG; Start 06/19/17 at 21:00 Senna (Senokot) 1 tab DAILY PO Last administered on 06/21/17 08:35; Admin Dose 1 TAB; Start 06/20/17 at 09:00 Acetaminophen (Tylenol Tab) 650 mg Q4H PRN PO PAIN AND OR ELEVATED TEMP; Start 06/19/17 at 18:30 Bisacodyl (Dulcolax Supp) 10 mg DAILY PRN [place] CONSTIPATION; Start 06/19/17 at 18 :30 Magnesium Hydroxide (Milk Of Mag) 30 ml DAILY PRN PO CONSTIPATION; Start at 18:30 Lactulose (Enulose) 20 gm DAILY PRN PO CONSTIPATION; Start 06/19/17 at 18:30 Assessment/Plan Additional Assessment/Plan Rehab- CVA with right-sided weakness. Progressing with rehab. Family conference with sister yesterday. Family is working on supervision for home Hypertension. Hyperlipidemia. Hyponatremia. Dysphagia. History of hepatitis B. History of chronic kidney disease. Acute on chronic kidney disease. TYRON HARMON MD Jun 21, 2017 10:26
[2017-06-21 14:00] VITALS: BP 115/83; RESP 18
[2017-06-21 19:50] VITALS: BP 122/87; PULSE 83; RESP 19
[2017-06-21] MEDS: ATORVASTATIN 80 MG TAB PO SCH (20:56)
[2017-06-22 07:30] VITALS: BP 120/90; RESP 20
[2017-06-22] MEDS: DOCUSATE SODIUM 100 MG CAP PO SCH ×2 (08:43→21:22)
[2017-06-22] MEDS: ASPIRIN 81 MG TAB PO SCH (08:43)
[2017-06-22] MEDS: FOLIC ACID 1 MG TAB PO SCH (08:43)
[2017-06-22] MEDS: L ACIDOPHIL/B LACTIS/B LONGUM CAPSULE PO SCH ×2 (08:43→21:22)
[2017-06-22] MEDS: FISH OIL 1,000 MG CAP PO SCH ×2 (08:43→21:22)
[2017-06-22] MEDS: AMLODIPINE 5 MG TAB PO SCH (08:43)
[2017-06-22] MEDS: SENNA TAB PO SCH (08:44)
[2017-06-22 08:46] VITALS: BP 139/92; PULSE 78; RESP 16
--- NOTE | 2017-06-22 11:41 | CONS ---
Date/Time of Note Date/Time of Note DATE: 06/21/17 TIME: 20:22 Assessment/Plan Assessment/Plan Additional Assessment/Plan 1. 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 h/o CKD due to HTN 3. Multiple Hemispheric Brainstem embolic infracts 4. Hypertension Plan: -renal US negative for hydronephrosis -will order BMP in AM labs to follow up on Cr - DC Lisinopril for HTN- because Creatinine continues to rise then we will stop it - Will add amlodipine for better BP control Consultation Date/Type/Reason Admit Date/Time Jun 18, 2017 at 14:17 Initial Consult Date 06/19/17 Type of Consultation: NEPHROLOGY Referring Provider: BRIAN RILEY MD, [facility] 24 HR Interval Summary Free Text/Dictation NAD, seems comfortable, no new issues reported per staff overnight. Exam/Review of Systems Vital Signs Vitals Vital Signs Date Time Temp Pulse Resp B/P Pulse Ox O2 Delivery O2 Flow Rate FiO2 06/21/17 14:00 98.4 91 18 115/83 96 06/21/17 08:40 Room Air Intake and Output 06/20/17 06/20/17 06/21/17 14:59 22:59 06:59 Intake Total 600 ml 120 ml Balance 600 ml 120 ml Exam Constitutional: alert, well developed Respiratory: clear to auscultation, normal air movement Cardiovascular: nl pulses, regular rate and rhythm Gastrointestinal: non-tender, soft Musculoskeletal: nl extremities to inspection Results Result Diagram: 06/19/17 0624 06/21/17 0611 Results 24 hrs Laboratory Tests Test 06/21/17 06:11 Sodium Level 139 Potassium Level 3.9 Chloride Level 110 Carbon Dioxide Level 20 L Anion Gap 13 Blood Urea Nitrogen 17 Creatinine 1.42 H Glucose Level 103 Calcium Level 9.4 Medications Medications Current Medications Aspirin (Aspirin) 81 mg DAILY PO Last administered on 06/21/17 08:35; Admin Dose 81 MG; Start 06/19/17 at 09:00 Atorvastatin Calcium (Lipitor) 80 mg DAILY@21 PO Last administered on 20:29; Admin Dose 80 MG; Start 06/18/17 at 21:00 Folic Acid (Folic Acid) 1 mg DAILY PO Last administered on 06/21/17 08:34; Admin Dose 1 MG; Start 06/19/17 at 09:00 Carvedilol (Coreg) 12.5 mg BID PO Last administered on 06/21/17 08:35; Admin Dose 12.5 MG; Start 06/18/17 at 21:00 Fish Oil (Fish Oil) 1,000 mg BID PO Last administered on 06/21/17 08:34; Admin Dose 1,000 MG; Start 06/18/17 at 21:00 Lisinopril (Zestril) 10 mg DAILY PO Last administered on 06/21/17 08:35; Admin Dose 10 MG; Start 06/19/17 at 18:00 Lactobacillus Acidophilus (Florajen3 Capsule) 1 each BID PO Last administered on 06/21/17 09:18; Admin Dose 1 EACH; Start 06/18/17 at 21:00 Docusate Sodium (Colace) 100 mg BID PO Last administered on 06/21/17 08:35; Admin Dose 100 MG; Start 06/19/17 at 21:00 Senna (Senokot) 1 tab DAILY PO Last administered on 06/21/17 08:35; Admin Dose 1 TAB; Start 06/20/17 at 09:00 Acetaminophen (Tylenol Tab) 650 mg Q4H PRN PO PAIN AND OR ELEVATED TEMP; Start 06/19/17 at 18:30 Bisacodyl (Dulcolax Supp) 10 mg DAILY PRN [place] CONSTIPATION; Start 06/19/17 at 18 :30 Magnesium Hydroxide (Milk Of Mag) 30 ml DAILY PRN PO CONSTIPATION; Start at 18:30 Lactulose (Enulose) 20 gm DAILY PRN PO CONSTIPATION; Start 06/19/17 at 18:30 REANNA DENIS Jun 21, 2017 20:32
--- NOTE | 2017-06-22 11:43 | CONS ---
Date/Time of Note Date/Time of Note DATE: 06/22/17 TIME: 11:41 Assessment/Plan Assessment/Plan Additional Assessment/Plan 1. 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 h/o CKD due to HTN 3. Multiple Hemispheric Brainstem embolic infracts 4. Hypertension Plan: -renal US negative for hydronephrosis -will order BMP in AM labs to follow up on Cr -bmp pending. - Lisinopril- DCd, on Amlodipine now. - Will add amlodipine for better BP control Dw Dr Erwin/staff Consultation Date/Type/Reason Admit Date/Time Jun 18, 2017 at 14:17 Initial Consult Date 06/19/17 Type of Consultation: NEPHROLOGY Referring Provider: [facility]RIAN RILEY MD, [facility] Exam/Review of Systems Vital Signs Vitals Vital Signs Date Time Temp Pulse Resp B/P Pulse Ox O2 Delivery O2 Flow Rate FiO2 06/22/17 08:46 78 16 139/92 97 Room Air 06/22/17 07:30 97.9 Intake and Output 06/21/17 06/21/17 06/22/17 15:00 23:00 07:00 Intake Total 1320 ml 240 ml Balance 1320 ml 240 ml Results Result Diagram: 06/19/17 0624 06/21/17 0611 Medications Medications Current Medications Aspirin (Aspirin) 81 mg DAILY PO Last administered on 06/22/17 08:43; Admin Dose 81 MG; Start 06/19/17 at 09:00 Atorvastatin Calcium (Lipitor) 80 mg DAILY@21 PO Last administered on 20:56; Admin Dose 80 MG; Start 06/18/17 at 21:00 Folic Acid (Folic Acid) 1 mg DAILY PO Last administered on 06/22/17 08:43; Admin Dose 1 MG; Start 06/19/17 at 09:00 Carvedilol (Coreg) 12.5 mg BID PO Last administered on 06/22/17 08:44; Admin Dose 12.5 MG; Start 06/18/17 at 21:00 Fish Oil (Fish Oil) 1,000 mg BID PO Last administered on 06/22/17 08:43; Admin Dose 1,000 MG; Start 06/18/17 at 21:00 Lactobacillus Acidophilus (Florajen3 Capsule) 1 each BID PO Last administered on 06/22/17 08:43; Admin Dose 1 EACH; Start 06/18/17 at 21:00 Docusate Sodium (Colace) 100 mg BID PO Last administered on 06/22/17 08:43; Admin Dose 100 MG; Start 06/19/17 at 21:00 Senna (Senokot) 1 tab DAILY PO Last administered on 06/21/17 08:35; Admin Dose 1 TAB; Start 06/20/17 at 09:00 Acetaminophen (Tylenol Tab) 650 mg Q4H PRN PO PAIN AND OR ELEVATED TEMP; Start 06/19/17 at 18:30 Bisacodyl (Dulcolax Supp) 10 mg DAILY PRN [place] CONSTIPATION; Start 06/19/17 at 18 :30 Magnesium Hydroxide (Milk Of Mag) 30 ml DAILY PRN PO CONSTIPATION; Start at 18:30 Lactulose (Enulose) 20 gm DAILY PRN PO CONSTIPATION; Start 06/19/17 at 18:30 Amlodipine Besylate (Norvasc) 5 mg DAILY PO Last administered on 06/22/17 08: 43; Admin Dose 5 MG; Start 06/22/17 at 09:00 REANNA DENIS Jun 22, 2017 11:43 REANNA DENIS Jun 22, 2017 11:43
[2017-06-22 11:53] LABS: CALCIUM 9.3 mg/dl (8.4-10.2); CREATININE 1.35 mg/dl (0.61-1.24); POTASSIUM 4.1 mmol/L (3.5-5.1)
[2017-06-22 14:00] VITALS: BP 121/89; RESP 20
--- NOTE | 2017-06-22 19:18 | CONS ---
Date/Time of Note Date/Time of Note DATE: 06/22/17 TIME: 19:17 Consult Date/Type/Reason Admit Date/Time Jun 18, 2017 at 14:17 Initial Consult Date 06/19/17 Type of Consultation: Pulm Ordering Provider: BRIAN RILEY MD, [facility] Subjective No events. Appreciate input by Renal Objective Vital Signs Date Time Temp Pulse Resp B/P Pulse Ox O2 Delivery O2 Flow Rate FiO2 06/22/17 14:00 97.8 76 20 121/89 98 06/22/17 08:46 Room Air Intake and Output 06/21/17 06/21/17 06/22/17 15:00 23:00 07:00 Intake Total 1320 ml 240 ml Balance 1320 ml 240 ml Exam HEENT: Neck supple; no JVD; no LAD CVS: RRR, S1 and S2 CHEST: Clear ABD: Soft, NT, + BS EXT: No c/c/e Results/Medications Result Diagram: 06/19/17 0624 06/22/17 1119 Results 24 hrs Laboratory Tests Test 06/22/17 11:19 Sodium Level 138 Potassium Level 4.1 Chloride Level 110 Carbon Dioxide Level 20 L Anion Gap 12 Blood Urea Nitrogen 20 Creatinine 1.35 H Glucose Level 111 Calcium Level 9.3 Medications Current Medications Aspirin (Aspirin) 81 mg DAILY PO Last administered on 06/22/17 08:43; Admin Dose 81 MG; Start 06/19/17 at 09:00 Atorvastatin Calcium (Lipitor) 80 mg DAILY@21 PO Last administered on 20:56; Admin Dose 80 MG; Start 06/18/17 at 21:00 Folic Acid (Folic Acid) 1 mg DAILY PO Last administered on 06/22/17 08:43; Admin Dose 1 MG; Start 06/19/17 at 09:00 Carvedilol (Coreg) 12.5 mg BID PO Last administered on 06/22/17 08:44; Admin Dose 12.5 MG; Start 06/18/17 at 21:00 Fish Oil (Fish Oil) 1,000 mg BID PO Last administered on 06/22/17 08:43; Admin Dose 1,000 MG; Start 06/18/17 at 21:00 Lactobacillus Acidophilus (Florajen3 Capsule) 1 each BID PO Last administered on 06/22/17 08:43; Admin Dose 1 EACH; Start 06/18/17 at 21:00 Docusate Sodium (Colace) 100 mg BID PO Last administered on 06/22/17 08:43; Admin Dose 100 MG; Start 06/19/17 at 21:00 Senna (Senokot) 1 tab DAILY PO Last administered on 06/21/17 08:35; Admin Dose 1 TAB; Start 06/20/17 at 09:00 Acetaminophen (Tylenol Tab) 650 mg Q4H PRN PO PAIN AND OR ELEVATED TEMP; Start 06/19/17 at 18:30 Bisacodyl (Dulcolax Supp) 10 mg DAILY PRN [place] CONSTIPATION; Start 06/19/17 at 18 :30 Magnesium Hydroxide (Milk Of Mag) 30 ml DAILY PRN PO CONSTIPATION; Start at 18:30 Lactulose (Enulose) 20 gm DAILY PRN PO CONSTIPATION; Start 06/19/17 at 18:30 Amlodipine Besylate (Norvasc) 5 mg DAILY PO Last administered on 06/22/17 08: 43; Admin Dose 5 MG; Start 06/22/17 at 09:00 Assessment/Plan Additional Assessment/Plan IMP: 1. SHERLY on CKD 2. s/p Brainstem CVA 3. HTN RECS: 1. BP well managed 2. Agree with D/C GARETH 3. Am CBC/BMP GUZMAN BOYER MD Jun 22, 2017 19:18
[2017-06-22 20:00] VITALS: BP 119/74; RESP 18
[2017-06-22] MEDS: ATORVASTATIN 80 MG TAB PO SCH (21:22)
[2017-06-22 21:26] VITALS: BP 134/62; PULSE 70
[2017-06-23 02:00] VITALS: BP 132/80; RESP 18
[2017-06-23 06:47] LABS: BASOPHILS % 0.2 % (0.0-2.0); EOSINOPHILS # 0.3 10^3/ul (0.0-0.5); EOSINOPHILS % 2.9 % (0.0-7.0); HEMATOCRIT 41.2 % (42.0-52.0); HEMOGLOBIN 13.7 g/dl (14.0-18.0); MEAN CORPUSCULAR HEMOGLOBIN 25.5 pg (29.0-33.0); MEAN CORPUSCULAR HGB CONC 33.3 g/dl (32.0-37.0); MEAN CORPUSCULAR VOLUME 76.6 fl (82.0-101.0); MEAN PLATELET VOLUME 9.7 fl (7.4-10.4); MONOCYTE # 0.9 10^3/ul (0.3-0.9); MONOCYTES % 10.7 % (0.0-11.0); NEUTROPHIL # 6.4 10^3/ul (1.6-7.5); NEUTROPHILS % 73.9 % (39.0-77.0); PLATELET COUNT 218 10^3/UL (140-415); RED BLOOD COUNT 5.38 10^6/ul (4.70-6.10); RED CELL DISTRIBUTION WIDTH 16.5 % (11.5-14.5); WHITE BLOOD COUNT 8.7 10^3/ul (4.8-10.8)
[2017-06-23 07:26] LABS: CALCIUM 9.3 mg/dl (8.4-10.2); CREATININE 1.34 mg/dl (0.61-1.24); POTASSIUM 3.7 mmol/L (3.5-5.1)
[2017-06-23 07:30] VITALS: BP 135/96; RESP 20
[2017-06-23] MEDS: FOLIC ACID 1 MG TAB PO SCH (09:08)
[2017-06-23] MEDS: LACTULOSE 30ML CUP PO PRN (09:08)
[2017-06-23] MEDS: SENNA TAB PO SCH (09:09)
[2017-06-23] MEDS: DOCUSATE SODIUM 100 MG CAP PO SCH ×2 (09:09→22:11)
[2017-06-23] MEDS: AMLODIPINE 5 MG TAB PO SCH (09:09)
[2017-06-23] MEDS: FISH OIL 1,000 MG CAP PO SCH ×2 (09:09→21:07)
[2017-06-23] MEDS: ASPIRIN 81 MG TAB PO SCH (09:09)
[2017-06-23] MEDS: L ACIDOPHIL/B LACTIS/B LONGUM CAPSULE PO SCH ×2 (09:09→22:11)
--- NOTE | 2017-06-23 12:04 | PN ---
Date/Time of Note Date/Time of Note DATE: 06/23/17 TIME: 12:00 Assessment/Plan VTE Prophylaxis VTE Prophylaxis Intervention: SCD's Lines/Catheters Urinary Cath still in place: No Assessment/Plan Chief Complaint/Hosp Course 1. SHERLY on CKD -Nephro eval appreciated. -Monitor renal fxn closely and avoid nephrotoxins. 2. Brainstem CVA with right sided weaknes. -continue with PT/OT. 3. HTN. Stable. -Continue antihypertensives. Patient was seen in collaboration with Problems: Subjective 24 Hr Interval Summary Free Text/Dictation Participating in PT. Sitting up in wheelchair in hallway. Exam/Review of Systems Vital Signs Vitals Vital Signs Date Time Temp Pulse Resp B/P Pulse Ox O2 Delivery O2 Flow Rate FiO2 06/23/17 07:30 97.8 83 20 135/96 96 06/22/17 08:46 Room Air Intake and Output 06/22/17 06/22/17 06/23/17 15:00 23:00 07:00 Intake Total 620 ml 240 ml Balance 620 ml 240 ml Exam General: Well developed, male, not in any acute distress . HEENT: Mild dysarthria+ Normocephalic, Atraumatic, No laceration or hematoma; Eyes: PEERL, Conjunctiva clear, Anicteric sclera Neck: Supple without any lymphadenopathy, nontender, no JVD, no carotid bruits, trachea midline, no thyromegaly Cardiac: S1, S2 auscultated, regular rhythm and rate, no mumurs or gallop Pulmonary: Normal respiratory effort. Chest clear to auscultation bilaterally, no adventitious breath sounds GI: Abdomen normal to inspection. Soft, non- distended, no masses, no rebound tenderness or guarding. Bowel sounds active on all four quadrants Genitourinary: Deferred Extremities: Right sided weakness+. No cyanosis, clubbing, or edema. Pulses [2+ ] bilaterally. Neurologic: Alert to person, place, time, and situation. Affect appropriate, intact sensation. Skin: Clean,dry, and intact. No ecchymosis, no rashes, or lesions Results Result Diagram: 06/23/17 0614 06/23/17 0614 Results 24 hrs Laboratory Tests Test 06/23/17 06:14 White Blood Count 8.7 # Red Blood Count 5.38 Hemoglobin 13.7 L Hematocrit 41.2 L Mean Corpuscular Volume 76.6 L Mean Corpuscular Hemoglobin 25.5 L Mean Corpuscular Hemoglobin Concent 33.3 Red Cell Distribution Width 16.5 H Platelet Count 218 Mean Platelet Volume 9.7 Neutrophils % 73.9 Lymphocytes % 12.0 L Monocytes % 10.7 Eosinophils % 2.9 Basophils % 0.2 Nucleated Red Blood Cells % 0.0 Neutrophils # 6.4 Lymphocytes # 1.0 Monocytes # 0.9 Eosinophils # 0.3 Basophils # 0.0 Nucleated Red Blood Cells # 0.0 Sodium Level 138 Potassium Level 3.7 Chloride Level 110 Carbon Dioxide Level 21 Anion Gap 11 Blood Urea Nitrogen 18 Creatinine 1.34 H Glucose Level 98 Calcium Level 9.3 Medications Medications Current Medications Aspirin (Aspirin) 81 mg DAILY PO Last administered on 06/23/17 09:09; Admin Dose 81 MG; Start 06/19/17 at 09:00 Atorvastatin Calcium (Lipitor) 80 mg DAILY@21 PO Last administered on 21:22; Admin Dose 80 MG; Start 06/18/17 at 21:00 Folic Acid (Folic Acid) 1 mg DAILY PO Last administered on 06/23/17 09:08; Admin Dose 1 MG; Start 06/19/17 at 09:00 Carvedilol (Coreg) 12.5 mg BID PO Last administered on 06/23/17 09:09; Admin Dose 12.5 MG; Start 06/18/17 at 21:00 Fish Oil (Fish Oil) 1,000 mg BID PO Last administered on 06/23/17 09:09; Admin Dose 1,000 MG; Start 06/18/17 at 21:00 Lactobacillus Acidophilus (Florajen3 Capsule) 1 each BID PO Last administered on 06/23/17 09:09; Admin Dose 1 EACH; Start 06/18/17 at 21:00 Docusate Sodium (Colace) 100 mg BID PO Last administered on 06/23/17 09:09; Admin Dose 100 MG; Start 06/19/17 at 21:00 Senna (Senokot) 1 tab DAILY PO Last administered on 06/23/17 09:09; Admin Dose 1 TAB; Start 06/20/17 at 09:00 Acetaminophen (Tylenol Tab) 650 mg Q4H PRN PO PAIN AND OR ELEVATED TEMP; Start 06/19/17 at 18:30 Bisacodyl (Dulcolax Supp) 10 mg DAILY PRN [place] CONSTIPATION; Start 06/19/17 at 18 :30 Magnesium Hydroxide (Milk Of Mag) 30 ml DAILY PRN PO CONSTIPATION; Start at 18:30 Lactulose (Enulose) 20 gm DAILY PRN PO CONSTIPATION Last administered on 09:08; Admin Dose 20 GM; Start 06/19/17 at 18:30 Amlodipine Besylate (Norvasc) 5 mg DAILY PO Last administered on 06/23/17 09: 09; Admin Dose 5 MG; Start 06/22/17 at 09:00 BRI THOMAS NP Jun 23, 2017 12:04
--- NOTE | 2017-06-23 12:34 | CONS ---
Date/Time of Note Date/Time of Note DATE: 06/23/17 TIME: 12:34 Consult Date/Type/Reason Admit Date/Time Jun 18, 2017 at 14:17 Initial Consult Date 06/19/17 Type of Consultation: Pulm Ordering Provider: BRIAN RILEY MD, [facility] Objective Vital Signs Date Time Temp Pulse Resp B/P Pulse Ox O2 Delivery O2 Flow Rate FiO2 06/23/17 07:30 97.8 83 20 135/96 96 06/22/17 08:46 Room Air Intake and Output 06/22/17 06/22/17 06/23/17 15:00 23:00 07:00 Intake Total 620 ml 240 ml Balance 620 ml 240 ml INTERDISCIPLINARY TEAM CONFERENCE BOWEL- Cont BLADDER-Cont SKIN- intact OT- DRESSING-min/mod BATHING-min/mod TOILETING-min/mod PT- BED MOBILITY-min TRANSFERS-min AMBULATION-min/mod 50 feet SPEECH- COGNITION-min A/P- Interdisciplinary team conference held today. Please see interdisciplinary sheet. Working toward d.c. on 06/30 with post discharge follow up of physical therapy, occupational therapy, and speech. Results/Medications Result Diagram: 06/23/17 0614 06/23/17 0614 Results 24 hrs Laboratory Tests Test 06/23/17 06:14 White Blood Count 8.7 # Red Blood Count 5.38 Hemoglobin 13.7 L Hematocrit 41.2 L Mean Corpuscular Volume 76.6 L Mean Corpuscular Hemoglobin 25.5 L Mean Corpuscular Hemoglobin Concent 33.3 Red Cell Distribution Width 16.5 H Platelet Count 218 Mean Platelet Volume 9.7 Neutrophils % 73.9 Lymphocytes % 12.0 L Monocytes % 10.7 Eosinophils % 2.9 Basophils % 0.2 Nucleated Red Blood Cells % 0.0 Neutrophils # 6.4 Lymphocytes # 1.0 Monocytes # 0.9 Eosinophils # 0.3 Basophils # 0.0 Nucleated Red Blood Cells # 0.0 Sodium Level 138 Potassium Level 3.7 Chloride Level 110 Carbon Dioxide Level 21 Anion Gap 11 Blood Urea Nitrogen 18 Creatinine 1.34 H Glucose Level 98 Calcium Level 9.3 Medications Current Medications Aspirin (Aspirin) 81 mg DAILY PO Last administered on 06/23/17t 09:09; Admin Dose 81 MG; Start 06/19/17 at 09:00 Atorvastatin Calcium (Lipitor) 80 mg DAILY@21 PO Last administered on 21:22; Admin Dose 80 MG; Start 06/18/17 at 21:00 Folic Acid (Folic Acid) 1 mg DAILY PO Last administered on 06/23/17 09:08; Admin Dose 1 MG; Start 06/19/17 at 09:00 Carvedilol (Coreg) 12.5 mg BID PO Last administered on 06/23/17 09:09; Admin Dose 12.5 MG; Start 06/18/17 at 21:00 Fish Oil (Fish Oil) 1,000 mg BID PO Last administered on 06/23/17 09:09; Admin Dose 1,000 MG; Start 06/18/17 at 21:00 Lactobacillus Acidophilus (Florajen3 Capsule) 1 each BID PO Last administered on 06/23/17 09:09; Admin Dose 1 EACH; Start 06/18/17 at 21:00 Docusate Sodium (Colace) 100 mg BID PO Last administered on 06/23/17 09:09; Admin Dose 100 MG; Start 06/19/17 at 21:00 Senna (Senokot) 1 tab DAILY PO Last administered on 06/23/17 09:09; Admin Dose 1 TAB; Start 06/20/17 at 09:00 Acetaminophen (Tylenol Tab) 650 mg Q4H PRN PO PAIN AND OR ELEVATED TEMP; Start 06/19/17 at 18:30 Bisacodyl (Dulcolax Supp) 10 mg DAILY PRN [place] CONSTIPATION; Start 06/19/17 at 18 :30 Magnesium Hydroxide (Milk Of Mag) 30 ml DAILY PRN [place] CONSTIPATION; Start at 18:30 Lactulose (Enulose) 20 gm DAILY PRN [place] CONSTIPATION Last administered on 09:08; Admin Dose 20 GM; Start 06/19/17 at 18:30 Amlodipine Besylate (Norvasc) 5 mg DAILY PO Last administered on 06/23/17 09: 09; Admin Dose 5 MG; Start 06/22/17 at 09:00 TYRON HARMON MD Jun 23, 2017 12:34
--- NOTE | 2017-06-23 17:32 | CONS ---
Date/Time of Note Date/Time of Note DATE: 06/23/17 TIME: 17:31 Assessment/Plan Assessment/Plan Additional Assessment/Plan 1. 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 h/o CKD due to HTN 3. Multiple Hemispheric Brainstem embolic infracts 4. Hypertension Plan: -renal US negative for hydronephrosis -BP controlled with amlodipine 5 mg po daily, Cr 1.35, electrolytes stable , off lisinopril since last 4 days will follow up - pt baseline Cr may be around 1.3-1.4 Consultation Date/Type/Reason Admit Date/Time Jun 18, 2017 at 14:17 Initial Consult Date 06/19/17 Type of Consultation: NEPHROLOGY Referring Provider: BRIAN RILEY MD, [facility] HR Interval Summary Free Text/Dictation BP controlled with amlodipine 5 mg po daily, Cr 1.35, electrolytes stable Exam/Review of Systems Vital Signs Vitals Vital Signs Date Time Temp Pulse Resp B/P Pulse Ox O2 Delivery O2 Flow Rate FiO2 06/23/17 07:30 97.8 83 20 135/96 96 06/22/17 08:46 Room Air Intake and Output 06/22/17 06/22/17 06/23/17 15:00 23:00 07:00 Intake Total 620 ml 240 ml Balance 620 ml 240 ml Results Result Diagram: 06/23/17 0614 06/23/17 0614 Results 24 hrs Laboratory Tests Test 06/23/17 06:14 White Blood Count 8.7 # Red Blood Count 5.38 Hemoglobin 13.7 L Hematocrit 41.2 L Mean Corpuscular Volume 76.6 L Mean Corpuscular Hemoglobin 25.5 L Mean Corpuscular Hemoglobin Concent 33.3 Red Cell Distribution Width 16.5 H Platelet Count 218 Mean Platelet Volume 9.7 Neutrophils % 73.9 Lymphocytes % 12.0 L Monocytes % 10.7 Eosinophils % 2.9 Basophils % 0.2 Nucleated Red Blood Cells % 0.0 Neutrophils # 6.4 Lymphocytes # 1.0 Monocytes # 0.9 Eosinophils # 0.3 Basophils # 0.0 Nucleated Red Blood Cells # 0.0 Sodium Level 138 Potassium Level 3.7 Chloride Level 110 Carbon Dioxide Level 21 Anion Gap 11 Blood Urea Nitrogen 18 Creatinine 1.34 H Glucose Level 98 Calcium Level 9.3 Medications Medications Current Medications Aspirin (Aspirin) 81 mg DAILY PO Last administered on 06/23/17 09:09; Admin Dose 81 MG; Start 06/19/17 at 09:00 Atorvastatin Calcium (Lipitor) 80 mg DAILY@21 PO Last administered on 21:22; Admin Dose 80 MG; Start 06/18/17 at 21:00 Folic Acid (Folic Acid) 1 mg DAILY PO Last administered on 06/23/17 09:08; Admin Dose 1 MG; Start 06/19/17 at 09:00 Carvedilol (Coreg) 12.5 mg BID PO Last administered on 06/23/17 09:09; Admin Dose 12.5 MG; Start 06/18/17 at 21:00 Fish Oil (Fish Oil) 1,000 mg BID PO Last administered on 06/23/17 09:09; Admin Dose 1,000 MG; Start 06/18/17 at 21:00 Lactobacillus Acidophilus (Florajen3 Capsule) 1 each BID PO Last administered on 06/23/17 09:09; Admin Dose 1 EACH; Start 06/18/17 at 21:00 Docusate Sodium (Colace) 100 mg BID PO Last administered on 06/23/17 09:09; Admin Dose 100 MG; Start 06/19/17 at 21:00 Senna (Senokot) 1 tab DAILY PO Last administered on 06/23/17 09:09; Admin Dose 1 TAB; Start 06/20/17 at 09:00 Acetaminophen (Tylenol Tab) 650 mg Q4H PRN PO PAIN AND OR ELEVATED TEMP; Start 06/19/17 at 18:30 Bisacodyl (Dulcolax Supp) 10 mg DAILY PRN [place] CONSTIPATION; Start 06/19/17 at 18 :30 Magnesium Hydroxide (Milk Of Mag) 30 ml DAILY PRN [place] CONSTIPATION; Start at 18:30 Lactulose (Enulose) 20 gm DAILY PRN [place] CONSTIPATION Last administered on 09:08; Admin Dose 20 GM; Start 06/19/17 at 18:30 Amlodipine Besylate (Norvasc) 5 mg DAILY PO Last administered on 06/23/17 09: 09; Admin Dose 5 MG; Start 06/22/17 at 09:00 TEGAN ALVAREZ MD Jun 23, 2017 17:32
[2017-06-23 20:00] VITALS: BP 113/74; RESP 18
[2017-06-23] MEDS: ATORVASTATIN 80 MG TAB PO SCH (21:07)
[2017-06-23 21:10] VITALS: BP 136/90; PULSE 84
[2017-06-24 02:00] VITALS: BP 122/77; RESP 18
[2017-06-24 08:51] VITALS: BP 154/94; RESP 18
[2017-06-24] MEDS: DOCUSATE SODIUM 100 MG CAP PO SCH ×2 (09:17→21:00)
[2017-06-24] MEDS: SENNA TAB PO SCH (09:18)
[2017-06-24] MEDS: ASPIRIN 81 MG TAB PO SCH (09:18)
[2017-06-24] MEDS: FOLIC ACID 1 MG TAB PO SCH (09:18)
[2017-06-24] MEDS: FISH OIL 1,000 MG CAP PO SCH ×2 (09:18→21:00)
[2017-06-24] MEDS: AMLODIPINE 5 MG TAB PO SCH (09:18)
[2017-06-24] MEDS: L ACIDOPHIL/B LACTIS/B LONGUM CAPSULE PO SCH ×2 (10:35→21:00)
--- NOTE | 2017-06-24 11:58 | CONS ---
Date/Time of Note Date/Time of Note DATE: 06/24/17 TIME: 11:58 Consult Date/Type/Reason Admit Date/Time Jun 18, 2017 at 14:17 Initial Consult Date 06/19/17 Type of Consultation: NEPHROLOGY Ordering Provider: BRIAN RILEY MD, [facility] Subjective Doing well Objective pulm-cta min assist impulsive Vital Signs Date Time Temp Pulse Resp B/P Pulse Ox O2 Delivery O2 Flow Rate FiO2 06/24/17 08:51 98.5 74 18 154/94 96 06/22/17 08:46 Room Air Intake and Output 06/23/17 06/23/17 06/24/17 15:00 23:00 07:00 Intake Total 420 ml 180 ml Balance 420 ml 180 ml Results/Medications Result Diagram: 06/23/1761306/23/1714 Medications Current Medications Aspirin (Aspirin) 81 mg DAILY PO Last administered on 06/24/17 09:18; Admin Dose 81 MG; Start 06/19/17 at 09:00 Atorvastatin Calcium (Lipitor) 80 mg DAILY@21 PO Last administered on 21:07; Admin Dose 80 MG; Start 06/18/17 at 21:00 Folic Acid (Folic Acid) 1 mg DAILY PO Last administered on 06/24/17 09:18; Admin Dose 1 MG; Start 06/19/17 at 09:00 Carvedilol (Coreg) 12.5 mg BID PO Last administered on 06/24/17 09:17; Admin Dose 12.5 MG; Start 06/18/17 at 21:00 Fish Oil (Fish Oil) 1,000 mg BID PO Last administered on 06/24/17 09:18; Admin Dose 1,000 MG; Start 06/18/17 at 21:00 Lactobacillus Acidophilus (Florajen3 Capsule) 1 each BID PO Last administered on 06/24/17 10:35; Admin Dose 1 EACH; Start 06/18/17 at 21:00 Docusate Sodium (Colace) 100 mg BID PO Last administered on 06/24/17 09:17; Admin Dose 100 MG; Start 06/19/17 at 21:00 Senna (Senokot) 1 tab DAILY PO Last administered on 06/24/17 09:18; Admin Dose 1 TAB; Start 06/20/17 at 09:00 Acetaminophen (Tylenol Tab) 650 mg Q4H PRN PO PAIN AND OR ELEVATED TEMP; Start 06/19/17 at 18:30 Bisacodyl (Dulcolax Supp) 10 mg DAILY PRN [place] CONSTIPATION; Start 06/19/17 at 18 :30 Magnesium Hydroxide (Milk Of Mag) 30 ml DAILY PRN PO CONSTIPATION; Start at 18:30 Lactulose (Enulose) 20 gm DAILY PRN PO CONSTIPATION Last administered on 09:08; Admin Dose 20 GM; Start 06/19/17 at 18:30 Amlodipine Besylate (Norvasc) 5 mg DAILY PO Last administered on 06/24/17 09: 18; Admin Dose 5 MG; Start 06/22/17 at 09:00 Assessment/Plan Additional Assessment/Plan Rehab- CVA with right-sided weakness. Continue rehab Hypertension. Hyperlipidemia. Hyponatremia. Dysphagia. History of hepatitis B. Acute on chronic kidney disease. TYRON HARMON MD Jun 24, 2017 11:58
--- NOTE | 2017-06-24 13:15 | CONS ---
Date/Time of Note Date/Time of Note DATE: 06/24/17 TIME: 13:12 Assessment/Plan Assessment/Plan Chief Complaint/Hosp Course 1. SHERLY on CKD -Nephro eval appreciated. -Monitor renal fxn closely and avoid nephrotoxins. 2. Brainstem CVA with right sided weakens. -continue with PT/OT. -Continue ASA,Statin and antihypertensives. 3. HTN. Stable. -Continue antihypertensives. Patient was seen in collaboration with DR. Riley. Problems: Consultation Date/Type/Reason Admit Date/Time Jun 18, 2017 at 14:17 Initial Consult Date 06/19/17 Type of Consultation: NEPHROLOGY Referring Provider: BRIAN RILEY MD, [facility] 24 HR Interval Summary Free Text/Dictation Patient complaints of intermittent numbness on finger tips-bilaterally. No other symptoms or new weakness. Exam/Review of Systems Vital Signs Vitals Vital Signs Date Time Temp Pulse Resp B/P Pulse Ox O2 Delivery O2 Flow Rate FiO2 06/24/17 08:51 98.5 74 18 154/94 96 06/22/17 08:46 Room Air Intake and Output 06/23/17 06/23/17 06/24/17 14:59 22:59 06:59 Intake Total 420 ml 180 ml Balance 420 ml 180 ml Exam General: Well developed, male, not in any acute distress . HEENT: Mild dysarthria+ Normocephalic, Atraumatic, No laceration or hematoma; Eyes: PEERL, Conjunctiva clear, Anicteric sclera Neck: Supple without any lymphadenopathy, nontender, no JVD, no carotid bruits, trachea midline, no thyromegaly Cardiac: S1, S2 auscultated, regular rhythm and rate, no mumurs or gallop Pulmonary: Normal respiratory effort. Chest clear to auscultation bilaterally, no adventitious breath sounds GI: Abdomen normal to inspection. Soft, non- distended, no masses, no rebound tenderness or guarding. Bowel sounds active on all four quadrants Genitourinary: Deferred Extremities: Right sided weakness+. No cyanosis, clubbing, or edema. Pulses [2+ ] bilaterally. Neurologic: Alert to person, place, time, and situation. Affect appropriate, intact sensation. Skin: Clean,dry, and intact. No ecchymosis, no rashes, or lesions Results Result Diagram: 06/23/1761306/23/17613 Medications Medications Current Medications Aspirin (Aspirin) 81 mg DAILY PO Last administered on 06/24/17 09:18; Admin Dose 81 MG; Start 06/19/17 at 09:00 Atorvastatin Calcium (Lipitor) 80 mg DAILY@21 PO Last administered on 21:07; Admin Dose 80 MG; Start 06/18/17 at 21:00 Folic Acid (Folic Acid) 1 mg DAILY PO Last administered on 06/24/17 09:18; Admin Dose 1 MG; Start 06/19/17 at 09:00 Carvedilol (Coreg) 12.5 mg BID PO Last administered on 06/24/17 09:17; Admin Dose 12.5 MG; Start 06/18/17 at 21:00 Fish Oil (Fish Oil) 1,000 mg BID PO Last administered on 06/24/17 09:18; Admin Dose 1,000 MG; Start 06/18/17 at 21:00 Lactobacillus Acidophilus (Florajen3 Capsule) 1 each BID PO Last administered on 06/24/17 10:35; Admin Dose 1 EACH; Start 06/18/17 at 21:00 Docusate Sodium (Colace) 100 mg BID PO Last administered on 06/24/17 09:17; Admin Dose 100 MG; Start 06/19/17 at 21:00 Senna (Senokot) 1 tab DAILY PO Last administered on 06/24/17 09:18; Admin Dose 1 TAB; Start 06/20/17 at 09:00 Acetaminophen (Tylenol Tab) 650 mg Q4H PRN PO PAIN AND OR ELEVATED TEMP; Start 06/19/17 at 18:30 Bisacodyl (Dulcolax Supp) 10 mg DAILY PRN [place] CONSTIPATION; Start 06/19/17 at 18 :30 Magnesium Hydroxide (Milk Of Mag) 30 ml DAILY PRN PO CONSTIPATION; Start at 18:30 Lactulose (Enulose) 20 gm DAILY PRN PO CONSTIPATION Last administered on 09:08; Admin Dose 20 GM; Start 06/19/17 at 18:30 Amlodipine Besylate (Norvasc) 5 mg DAILY PO Last administered on 06/24/17 09: 18; Admin Dose 5 MG; Start 06/22/17 at 09:00 BRI THOMAS NP Jun 24, 2017 13:15
--- NOTE | 2017-06-24 14:21 | CONS ---
Date/Time of Note Date/Time of Note DATE: 06/24/17 TIME: 14:20 Assessment/Plan Assessment/Plan Additional Assessment/Plan 1. 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 h/o CKD due to HTN 3. Multiple Hemispheric Brainstem embolic infracts 4. Hypertension Plan: -renal US negative for hydronephrosis -BP controlled with amlodipine 5 mg po daily, Cr 1.35, electrolytes stable , off lisinopril for now, No labs today to review will follow up - pt baseline Cr may be around 1.3-1.4 Consultation Date/Type/Reason Admit Date/Time Jun 18, 2017 at 14:17 Initial Consult Date 06/19/17 Type of Consultation: NEPHROLOGY Referring Provider: BRIAN RILEY MD, [facility] 24 HR Interval Summary Free Text/Dictation No labs today, BP controlled with amlodipine Exam/Review of Systems Vital Signs Vitals Vital Signs Date Time Temp Pulse Resp B/P Pulse Ox O2 Delivery O2 Flow Rate FiO2 06/24/17 08:51 98.5 74 18 154/94 96 06/22/17 08:46 Room Air Intake and Output 06/23/17 06/23/17 06/24/17 15:00 23:00 07:00 Intake Total 420 ml 180 ml Balance 420 ml 180 ml Exam Constitutional: alert Head: normocephalic Eyes: nl conjunctiva ENMT: nl external ears & nose Neck: non-tender, supple Respiratory: clear to auscultation, normal air movement Gastrointestinal: non-tender, soft Neurological: CASE FILLER II-XII intact, nl mental status, nl speech Results Result Diagram: 06/23/1761306/23/1714 Medications Medications Current Medications Aspirin (Aspirin) 81 mg DAILY PO Last administered on 06/24/17 09:18; Admin Dose 81 MG; Start 06/19/17 at 09:00 Atorvastatin Calcium (Lipitor) 80 mg DAILY@21 PO Last administered on 21:07; Admin Dose 80 MG; Start 06/18/17 at 21:00 Folic Acid (Folic Acid) 1 mg DAILY PO Last administered on 06/24/17 09:18; Admin Dose 1 MG; Start 06/19/17 at 09:00 Carvedilol (Coreg) 12.5 mg BID PO Last administered on 06/24/17 09:17; Admin Dose 12.5 MG; Start 06/18/17 at 21:00 Fish Oil (Fish Oil) 1,000 mg BID PO Last administered on 06/24/17 09:18; Admin Dose 1,000 MG; Start 06/18/17 at 21:00 Lactobacillus Acidophilus (Florajen3 Capsule) 1 each BID PO Last administered on 06/24/17 10:35; Admin Dose 1 EACH; Start 06/18/17 at 21:00 Docusate Sodium (Colace) 100 mg BID PO Last administered on 06/24/17 09:17; Admin Dose 100 MG; Start 06/19/17 at 21:00 Senna (Senokot) 1 tab DAILY PO Last administered on 06/24/17 09:18; Admin Dose 1 TAB; Start 06/20/17 at 09:00 Acetaminophen (Tylenol Tab) 650 mg Q4H PRN PO PAIN AND OR ELEVATED TEMP; Start 06/19/17 at 18:30 Bisacodyl (Dulcolax Supp) 10 mg DAILY PRN [place] CONSTIPATION; Start 06/19/17 at 18 :30 Magnesium Hydroxide (Milk Of Mag) 30 ml DAILY PRN PO CONSTIPATION; Start at 18:30 Lactulose (Enulose) 20 gm DAILY PRN PO CONSTIPATION Last administered on 09:08; Admin Dose 20 GM; Start 06/19/17 at 18:30 Amlodipine Besylate (Norvasc) 5 mg DAILY PO Last administered on 06/24/17 09: 18; Admin Dose 5 MG; Start 06/22/17 at 09:00 TEGAN ALVAREZ MD Jun 24, 2017 14:21
[2017-06-24 20:00] VITALS: BP 147/90; RESP 18
[2017-06-24] MEDS: ATORVASTATIN 80 MG TAB PO SCH (21:00)
[2017-06-24 22:27] LABS: BASOPHILS % 0.2 % (0.0-2.0); EOSINOPHILS # 0.3 10^3/ul (0.0-0.5); EOSINOPHILS % 3.4 % (0.0-7.0); HEMATOCRIT 41.1 % (42.0-52.0); HEMOGLOBIN 13.7 g/dl (14.0-18.0); LYMPHOCYTES # 1.2 10^3/ul (0.8-2.9); LYMPHOCYTES % 14.1 % (15.0-51.0); MEAN CORPUSCULAR HEMOGLOBIN 25.8 pg (29.0-33.0); MEAN CORPUSCULAR HGB CONC 33.3 g/dl (32.0-37.0); MEAN CORPUSCULAR VOLUME 77.4 fl (82.0-101.0); MEAN PLATELET VOLUME 9.6 fl (7.4-10.4); MONOCYTES % 12.1 % (0.0-11.0); PLATELET COUNT 204 10^3/UL (140-415); RED BLOOD COUNT 5.31 10^6/ul (4.70-6.10); RED CELL DISTRIBUTION WIDTH 16.1 % (11.5-14.5); WHITE BLOOD COUNT 8.5 10^3/ul (4.8-10.8)
--- NOTE | 2017-06-24 22:43 | RADRPT ---
PROCEDURE: CT Head without. CLINICAL INDICATION: Right arm numbness. TECHNIQUE: The study was performed utilizing a multi-slice, multidetector CT scanner. Direct spira l 1 mm axial sections were obtained through the head without the use of intravenous contrast materia l. 1 or more of the following dose reduction techniques were utilized: Automated exposure control, adjustment of the mA and/or kV according to patient's size, iterative reconstruction technique. Co justine and sagittal reformations were obtained. The images were reviewed on a PACS workstation. RADIATION DOSE: CTDIvol: 44.3 mGyDLP: 720.2 mGy-cm COMPARISON: No prior studies are available for comparison. FINDINGS: There is an ill-defined area of hypodensity involving the right occipital lobe (axial series and 14) , which is nonspecific. There is no intracranial hemorrhage, extra-axial fluid collection, mass lesi on, midline shift or hydrocephalus. There is mild prominence of the cerebral sulci, lateral and thi rd ventricles. There is moderate patchy periventricular and subcortical white matter hypodensity. There is mild arteriosclerotic calcification of the parasellar internal carotid arteries. The iqbal- white matter differentiation is preserved. The basal cisterns are patent. The midline structures a re intact. The orbits, calvarium and extracranial soft tissues are normal in appearance. The visual ized paranasal sinuses, mastoid air cells and middle ear cavities are normally aerated. IMPRESSION: 1. Ill-defined area of hypodensity involving the right occipital lobe, which is nonspecific. This m ay be related to volume averaging of the occipital horn of the right lateral ventricle, and abnormal ity in this region does not correlate with patient history of right arm numbness. If clinical concer n for acute infarct, MRI of the brain is recommended for further evaluation. 2. No intracranial hemorrhage, extra-axial fluid collection, mass lesion or hydrocephalous. 3. Mild peripheral and central cerebral volume loss. 4. Moderate patchy periventricular and subcortical white matter hypodensity, likely related to feather cutting machine feeder nolberto microangiopathic changes, which is slightly advanced for age. The above findings were discussed with Patient's physician Abdulkadir Little by telephone on 06/24/2017 10:36:47 PM. RPTAT: HGAS .Sanchez Hernandez MD, MD Date Time Electronically viewed and signed by .Sanchez Hernandez MD, MD on 06/24/2017 22:43 .S/
[2017-06-24 22:49] LABS: CALCIUM 9.4 mg/dl (8.4-10.2); CREATININE 1.16 mg/dl (0.61-1.24); POTASSIUM 3.6 mmol/L (3.5-5.1)
[2017-06-25 02:00] VITALS: BP 135/82; RESP 18
[2017-06-25] MEDS: SENNA TAB PO SCH (09:00)
--- NOTE | 2017-06-25 09:46 | CONS ---
Date/Time of Note Date/Time of Note DATE: 06/25/17 TIME: 09:46 Consult Date/Type/Reason Admit Date/Time Jun 18, 2017 at 14:17 Initial Consult Date 06/19/17 Type of Consultation: NEPHROLOGY Ordering Provider: BRIAN RILEY MD, [facility] Subjective Patient reports continued numbeness, however overall functional status continues to improve Objective pulm-cta cga ambulation Vital Signs Date Time Temp Pulse Resp B/P Pulse Ox O2 Delivery O2 Flow Rate FiO2 06/25/17 02:00 98.5 78 18 135/82 95 06/22/17 08:46 Room Air Intake and Output 06/24/17 06/24/17 06/25/17 15:00 23:00 07:00 Intake Total 500 ml Balance 500 ml Results/Medications Result Diagram: 06/24/17219906/24/170 Results 24 hrs Laboratory Tests Test 06/24/17 22:00 White Blood Count 8.5 Red Blood Count 5.31 Hemoglobin 13.7 L Hematocrit 41.1 L Mean Corpuscular Volume 77.4 L Mean Corpuscular Hemoglobin 25.8 L Mean Corpuscular Hemoglobin Concent 33.3 Red Cell Distribution Width 16.1 H Platelet Count 204 Mean Platelet Volume 9.6 Neutrophils % 70.0 Lymphocytes % 14.1 L Monocytes % 12.1 H Eosinophils % 3.4 Basophils % 0.2 Nucleated Red Blood Cells % 0.0 Neutrophils # 6.0 Lymphocytes # 1.2 Monocytes # 1.0 H Eosinophils # 0.3 Basophils # 0.0 Nucleated Red Blood Cells # 0.0 Sodium Level 138 Potassium Level 3.6 Chloride Level 108 Carbon Dioxide Level 25 Anion Gap 9 Blood Urea Nitrogen 15 Creatinine 1.16 Glucose Level 107 Calcium Level 9.4 Medications Current Medications Aspirin (Aspirin) 81 mg DAILY PO Last administered on 06/24/17 09:18; Admin Dose 81 MG; Start 06/19/17 at 09:00 Atorvastatin Calcium (Lipitor) 80 mg DAILY@21 PO Last administered on 21:00; Admin Dose 80 MG; Start 06/18/17 at 21:00 Folic Acid (Folic Acid) 1 mg DAILY PO Last administered on 06/24/17 09:18; Admin Dose 1 MG; Start 06/19/17 at 09:00 Carvedilol (Coreg) 12.5 mg BID PO Last administered on 06/24/17 21:01; Admin Dose 12.5 MG; Start 06/18/17 at 21:00 Fish Oil (Fish Oil) 1,000 mg BID PO Last administered on 06/24/17 21:00; Admin Dose 1,000 MG; Start 06/18/17 at 21:00 Lactobacillus Acidophilus (Florajen3 Capsule) 1 each BID PO Last administered on 06/24/17 21:00; Admin Dose 1 EACH; Start 06/18/17 at 21:00 Docusate Sodium (Colace) 100 mg BID PO Last administered on 06/24/17 21:00; Admin Dose 100 MG; Start 06/19/17 at 21:00 Senna (Senokot) 1 tab DAILY PO Last administered on 06/24/17 09:18; Admin Dose 1 TAB; Start 06/20/17 at 09:00 Acetaminophen (Tylenol Tab) 650 mg Q4H PRN PO PAIN AND OR ELEVATED TEMP; Start 06/19/17 at 18:30 Bisacodyl (Dulcolax Supp) 10 mg DAILY PRN [place] CONSTIPATION; Start 06/19/17 at 18 :30 Magnesium Hydroxide (Milk Of Mag) 30 ml DAILY PRN PO CONSTIPATION; Start at 18:30 Lactulose (Enulose) 20 gm DAILY PRN PO CONSTIPATION Last administered on 09:08; Admin Dose 20 GM; Start 06/19/17 at 18:30 Amlodipine Besylate (Norvasc) 5 mg DAILY PO Last administered on 06/24/17 09: 18; Admin Dose 5 MG; Start 06/22/17 at 09:00 Assessment/Plan Additional Assessment/Plan Rehab- CVA with right-sided weakness. Continue rehab program, steady progress Neuro- no new changes. Patients verbal status and cognition improving, likely now able to report his numbness. Hypertension. Hyperlipidemia. Hyponatremia. Dysphagia. History of hepatitis B. Acute on chronic kidney disease. TYRON HARMON MD Jun 25, 2017 09:46
[2017-06-25] MEDS: ASPIRIN 81 MG TAB PO SCH (09:48)
[2017-06-25] MEDS: AMLODIPINE 5 MG TAB PO SCH (09:48)
[2017-06-25] MEDS: FISH OIL 1,000 MG CAP PO SCH ×2 (09:48→20:20)
[2017-06-25] MEDS: FOLIC ACID 1 MG TAB PO SCH (09:49)
[2017-06-25] MEDS: DOCUSATE SODIUM 100 MG CAP PO SCH ×2 (09:49→20:20)
[2017-06-25] MEDS: L ACIDOPHIL/B LACTIS/B LONGUM CAPSULE PO SCH ×2 (09:51→20:21)
--- NOTE | 2017-06-25 10:43 | PN ---
Date/Time of Note Date/Time of Note DATE: 06/25/17 TIME: 10:41 Assessment/Plan VTE Prophylaxis VTE Prophylaxis Intervention: ambulation Lines/Catheters Urinary Cath still in place: No Assessment/Plan Chief Complaint/Hosp Course 1. SHERLY on CKD. -Nephro eval appreciated. -Monitor renal fxn closely and avoid nephrotoxins. 2. Brainstem CVA with right sided weakens/numbness. -continue with PT/OT. -Continue ASA,Statin and antihypertensives. -Repeat CT was reviewed and without any significant changes-Will consider MRI if indicated. -Obtain TSH and A1c to rule out other possible neuropathies. 3. HTN. Stable. -Continue antihypertensives. Patient was seen in collaboration with DR. Garcia. Problems: Subjective 24 Hr Interval Summary Free Text/Dictation Overall patient with improvement in speech and mobility status. He continues to have some numbness on the right arm which comes and go. Exam/Review of Systems Vital Signs Vitals Vital Signs Date Time Temp Pulse Resp B/P Pulse Ox O2 Delivery O2 Flow Rate FiO2 06/25/17 02:00 98.5 78 18 135/82 95 06/22/17 08:46 Room Air Intake and Output 06/24/17 06/24/17 06/25/17 15:00 23:00 07:00 Intake Total 500 ml Balance 500 ml Exam General: Well developed, male, not in any acute distress . HEENT: Mild dysarthria+ Normocephalic, Atraumatic, No laceration or hematoma; Eyes: PEERL, Conjunctiva clear, Anicteric sclera Neck: Supple without any lymphadenopathy, nontender, no JVD, no carotid bruits, trachea midline, no thyromegaly Cardiac: S1, S2 auscultated, regular rhythm and rate, no mumurs or gallop Pulmonary: Normal respiratory effort. Chest clear to auscultation bilaterally, no adventitious breath sounds GI: Abdomen normal to inspection. Soft, non- distended, no masses, no rebound tenderness or guarding. Bowel sounds active on all four quadrants Genitourinary: Deferred Extremities: Right sided weakness+. No cyanosis, clubbing, or edema. Pulses [2+ ] bilaterally. Neurologic: Alert to person, place, time, and situation. Affect appropriate, intact sensation. Skin: Clean,dry, and intact. No ecchymosis, no rashes, or lesions Results Result Diagram: 06/24/17219906/24/172199 Results 24 hrs Laboratory Tests Test 06/24/17 22:00 White Blood Count 8.5 Red Blood Count 5.31 Hemoglobin 13.7 L Hematocrit 41.1 L Mean Corpuscular Volume 77.4 L Mean Corpuscular Hemoglobin 25.8 L Mean Corpuscular Hemoglobin Concent 33.3 Red Cell Distribution Width 16.1 H Platelet Count 204 Mean Platelet Volume 9.6 Neutrophils % 70.0 Lymphocytes % 14.1 L Monocytes % 12.1 H Eosinophils % 3.4 Basophils % 0.2 Nucleated Red Blood Cells % 0.0 Neutrophils # 6.0 Lymphocytes # 1.2 Monocytes # 1.0 H Eosinophils # 0.3 Basophils # 0.0 Nucleated Red Blood Cells # 0.0 Sodium Level 138 Potassium Level 3.6 Chloride Level 108 Carbon Dioxide Level 25 Anion Gap 9 Blood Urea Nitrogen 15 Creatinine 1.16 Glucose Level 107 Calcium Level 9.4 Medications Medications Current Medications Aspirin (Aspirin) 81 mg DAILY PO Last administered on 06/25/17 09:48; Admin Dose 81 MG; Start 06/19/17 at 09:00 Atorvastatin Calcium (Lipitor) 80 mg DAILY@21 PO Last administered on 21:00; Admin Dose 80 MG; Start 06/18/17 at 21:00 Folic Acid (Folic Acid) 1 mg DAILY PO Last administered on 06/25/17 09:49; Admin Dose 1 MG; Start 06/19/17 at 09:00 Carvedilol (Coreg) 12.5 mg BID PO Last administered on 06/25/17 09:49; Admin Dose 12.5 MG; Start 06/18/17 at 21:00 Fish Oil (Fish Oil) 1,000 mg BID PO Last administered on 06/25/17 09:48; Admin Dose 1,000 MG; Start 06/18/17 at 21:00 Lactobacillus Acidophilus (Florajen3 Capsule) 1 each BID PO Last administered on 06/25/17 09:51; Admin Dose 1 EACH; Start 06/18/17 at 21:00 Docusate Sodium (Colace) 100 mg BID PO Last administered on 06/25/17 09:49; Admin Dose 100 MG; Start 06/19/17 at 21:00 Senna (Senokot) 1 tab DAILY PO Last administered on 06/24/17 09:18; Admin Dose 1 TAB; Start 06/20/17 at 09:00 Acetaminophen (Tylenol Tab) 650 mg Q4H PRN PO PAIN AND OR ELEVATED TEMP; Start 06/19/17 at 18:30 Bisacodyl (Dulcolax Supp) 10 mg DAILY PRN [place] CONSTIPATION; Start 06/19/17 at 18 :30 Magnesium Hydroxide (Milk Of Mag) 30 ml DAILY PRN [place] CONSTIPATION; Start at 18:30 Lactulose (Enulose) 20 gm DAILY PRN [place] CONSTIPATION Last administered on 09:08; Admin Dose 20 GM; Start 06/19/17 at 18:30 Amlodipine Besylate (Norvasc) 5 mg DAILY PO Last administered on 06/25/17 09: 48; Admin Dose 5 MG; Start 06/22/17 at 09:00 BRI THOMAS NP Jun 25, 2017 10:43
--- NOTE | 2017-06-25 15:55 | CONS ---
Date/Time of Note Date/Time of Note DATE: 06/25/17 TIME: 15:53 Assessment/Plan Assessment/Plan Additional Assessment/Plan 1. 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 h/o CKD due to HTN 3. Multiple Hemispheric Brainstem embolic infracts 4. Hypertension Plan: -renal US negative for hydronephrosis -BP controlled with amlodipine 5 mg po daily, Cr 1.16, electrolytes stable will resume his home medication lisinopril at lower dose 5 mg po daily will follow up Consultation Date/Type/Reason Admit Date/Time Jun 18, 2017 at 14:17 Initial Consult Date 06/19/17 Type of Consultation: NEPHROLOGY Referring Provider: BRIAN RILEY MD, [facility] 24 HR Interval Summary Free Text/Dictation Cr imrpoved to 1.2 Exam/Review of Systems Vital Signs Vitals Vital Signs Date Time Temp Pulse Resp B/P Pulse Ox O2 Delivery O2 Flow Rate FiO2 06/25/17 02:00 98.5 78 18 135/82 95 06/22/17 08:46 Room Air Intake and Output 06/24/17 06/24/17 06/25/17 15:00 23:00 07:00 Intake Total 500 ml Balance 500 ml Exam Constitutional: alert Psych: no complaints Head: normocephalic Eyes: nl conjunctiva ENMT: nl external ears & nose Neck: non-tender, supple Respiratory: clear to auscultation, diminished breath sounds, normal air movement Cardiovascular: nl pulses, regular rate and rhythm Gastrointestinal: non-tender, soft 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3 Basophils # 0.0 Nucleated Red Blood Cells # 0.0 Sodium Level 138 Potassium Level 3.6 Chloride Level 108 Carbon Dioxide Level 25 Anion Gap 9 Blood Urea Nitrogen 15 Creatinine 1.16 Glucose Level 107 Calcium Level 9.4 Medications Medications Current Medications Aspirin (Aspirin) 81 mg DAILY PO Last administered on 06/25/17 09:48; Admin Dose 81 MG; Start 06/19/17 at 09:00 Atorvastatin Calcium (Lipitor) 80 mg DAILY@21 PO Last administered on 21:00; Admin Dose 80 MG; Start 06/18/17 at 21:00 Folic Acid (Folic Acid) 1 mg DAILY PO Last administered on 06/25/17 09:49; Admin Dose 1 MG; Start 06/19/17 at 09:00 Carvedilol (Coreg) 12.5 mg BID PO Last administered on 06/25/17 09:49; Admin Dose 12.5 MG; Start 06/18/17 at 21:00 Fish Oil (Fish Oil) 1,000 mg BID PO Last administered on 06/25/17 09:48; Admin Dose 1,000 MG; Start 06/18/17 at 21:00 Lactobacillus Acidophilus (Florajen3 Capsule) 1 each BID PO Last administered on 06/25/17 09:51; Admin Dose 1 EACH; Start 06/18/17 at 21:00 Docusate Sodium (Colace) 100 mg BID PO Last administered on 06/25/17 09:49; Admin Dose 100 MG; Start 06/19/17 at 21:00 Senna (Senokot) 1 tab DAILY PO Last administered on 06/25/17 09:00; Admin Dose 1 TAB; Start 06/20/17 at 09:00 Acetaminophen (Tylenol Tab) 650 mg Q4H PRN PO PAIN AND OR ELEVATED TEMP; Start 06/19/17 at 18:30 Bisacodyl (Dulcolax Supp) 10 mg DAILY PRN [place] CONSTIPATION; Start 06/19/17 at 18 :30 Magnesium Hydroxide (Milk Of Mag) 30 ml DAILY PRN PO CONSTIPATION; Start at 18:30 Lactulose (Enulose) 20 gm DAILY PRN PO CONSTIPATION Last administered on 09:08; Admin Dose 20 GM; Start 06/19/17 at 18:30 Amlodipine Besylate (Norvasc) 5 mg DAILY PO Last administered on 06/25/17t 09: 48; Admin Dose 5 MG; Start 06/22/17 at 09:00 TEGAN ALVAREZ MD Jun 25, 2017 15:55
[2017-06-25 20:00] VITALS: BP 138/84; RESP 18
[2017-06-25] MEDS: ATORVASTATIN 80 MG TAB PO SCH (20:20)
[2017-06-26 07:30] VITALS: BP 136/97; RESP 18
[2017-06-26] MEDS: FISH OIL 1,000 MG CAP PO SCH ×2 (09:36→21:39)
[2017-06-26] MEDS: AMLODIPINE 5 MG TAB PO SCH (09:36)
[2017-06-26] MEDS: DOCUSATE SODIUM 100 MG CAP PO SCH ×2 (09:36→21:38)
[2017-06-26] MEDS: L ACIDOPHIL/B LACTIS/B LONGUM CAPSULE PO SCH ×2 (09:36→21:42)
[2017-06-26] MEDS: SENNA TAB PO SCH (09:37)
[2017-06-26] MEDS: ASPIRIN 81 MG TAB PO SCH (09:37)
[2017-06-26] MEDS: FOLIC ACID 1 MG TAB PO SCH (09:56)
--- NOTE | 2017-06-26 12:28 | CONS ---
Date/Time of Note Date/Time of Note DATE: 06/26/17 TIME: 12:27 Consult Date/Type/Reason Admit Date/Time Jun 18, 2017 at 14:17 Initial Consult Date 06/19/17 Type of Consultation: NEPHROLOGY Ordering Provider: BRIAN RILEY MD, [facility] Subjective Comfortable Objective pulm-cta abd-soft CGA Vital Signs Date Time Temp Pulse Resp B/P Pulse Ox O2 Delivery O2 Flow Rate FiO2 06/26/17 07:30 98.7 71 18 136/97 98 06/22/17 08:46 Room Air Intake and Output 06/25/17 06/25/17 06/26/17 15:00 23:00 07:00 Intake Total 800 ml Output Total 800 ml Balance 0 ml Results/Medications Result Diagram: 06/24/17 2200 06/24/17 2200 Results 24 hrs Laboratory Tests Test 06/26/17 06:27 06/26/17 06:30 Hemoglobin A1c 6.0 H Thyroid Stimulating Hormone (TSH) 1.340 Medications Current Medications Aspirin (Aspirin) 81 mg DAILY PO Last administered on 06/26/17 09:37; Admin Dose 81 MG; Start 06/19/17 at 09:00 Atorvastatin Calcium (Lipitor) 80 mg DAILY@21 PO Last administered on 20:20; Admin Dose 80 MG; Start 06/18/17 at 21:00 Folic Acid (Folic Acid) 1 mg DAILY PO Last administered on 06/26/17 09:56; Admin Dose 1 MG; Start 06/19/17 at 09:00 Carvedilol (Coreg) 12.5 mg BID PO Last administered on 06/26/17 09:37; Admin Dose 12.5 MG; Start 06/18/17 at 21:00 Fish Oil (Fish Oil) 1,000 mg BID PO Last administered on 06/26/17 09:36; Admin Dose 1,000 MG; Start 06/18/17 at 21:00 Lactobacillus Acidophilus (Florajen3 Capsule) 1 each BID PO Last administered on 06/26/17 09:36; Admin Dose 1 EACH; Start 06/18/17 at 21:00 Docusate Sodium (Colace) 100 mg BID PO Last administered on 06/26/17 09:36; Admin Dose 100 MG; Start 06/19/17 at 21:00 Senna (Senokot) 1 tab DAILY PO Last administered on 06/26/17 09:37; Admin Dose 1 TAB; Start 06/20/17 at 09:00 Acetaminophen (Tylenol Tab) 650 mg Q4H PRN PO PAIN AND OR ELEVATED TEMP; Start 06/19/17 at 18:30 Bisacodyl (Dulcolax Supp) 10 mg DAILY PRN [place] CONSTIPATION; Start 06/19/17 at 18 :30 Magnesium Hydroxide (Milk Of Mag) 30 ml DAILY PRN PO CONSTIPATION; Start at 18:30 Lactulose (Enulose) 20 gm DAILY PRN PO CONSTIPATION Last administered on 09:08; Admin Dose 20 GM; Start 06/19/17 at 18:30 Amlodipine Besylate (Norvasc) 5 mg DAILY PO Last administered on 06/26/17 09: 36; Admin Dose 5 MG; Start 06/22/17 at 09:00 Assessment/Plan Additional Assessment/Plan Rehab- CVA with right-sided weakness. Continue current rehab Hypertension. Hyperlipidemia. Hyponatremia. Dysphagia. History of hepatitis B. Acute on chronic kidney disease. TYRON HARMON MD Jun 26, 2017 12:28
--- NOTE | 2017-06-26 12:48 | CONS ---
Date/Time of Note Date/Time of Note DATE: 06/26/17 TIME: 12:47 Assessment/Plan Assessment/Plan Chief Complaint/Hosp Course 1. SHERLY on CKD. -Nephro eval appreciated. -Monitor renal fxn closely and avoid nephrotoxins. 2. Brainstem CVA with right sided weakens/numbness. -continue with PT/OT. -Continue ASA,Statin and antihypertensives. -Repeat CT was reviewed and without any significant changes-Will consider MRI if indicated. -Obtain TSH and A1c to rule out other possible neuropathies. 3. HTN. Stable. -Continue antihypertensives. Patient was seen in collaboration with DR. Riley. Problems: Consultation Date/Type/Reason Admit Date/Time Jun 18, 2017 at 14:17 Initial Consult Date 06/19/17 Type of Consultation: NEPHROLOGY Referring Provider: BRIAN RILEY MD, [facility] [place] Interval Summary Free Text/Dictation No acute overnight episodes. Exam/Review of Systems Vital Signs Vitals Vital Signs Date Time Temp Pulse Resp B/P Pulse Ox O2 Delivery O2 Flow Rate FiO2 06/26/17 07:30 98.7 71 18 136/97 98 06/22/17 08:46 Room Air Intake and Output 06/25/17 06/25/17 06/26/17 15:00 23:00 07:00 Intake Total 800 ml Output Total 800 ml Balance 0 ml Exam General: Well developed, male, not in any acute distress . HEENT: Mild dysarthria+ Normocephalic, Atraumatic, No laceration or hematoma; Eyes: PEERL, Conjunctiva clear, Anicteric sclera Neck: Supple without any lymphadenopathy, nontender, no JVD, no carotid bruits, trachea midline, no thyromegaly Cardiac: S1, S2 auscultated, regular rhythm and rate, no mumurs or gallop Pulmonary: Normal respiratory effort. Chest clear to auscultation bilaterally, no adventitious breath sounds GI: Abdomen normal to inspection. Soft, non- distended, no masses, no rebound tenderness or guarding. Bowel sounds active on all four quadrants Genitourinary: Deferred Extremities: Right sided weakness+. No cyanosis, clubbing, or edema. Pulses [2+ ] bilaterally. Neurologic: Alert to person, place, time, and situation. Affect appropriate, intact sensation. Skin: Clean,dry, and intact. No ecchymosis, no rashes, or lesions Results Result Diagram: 06/24/17219906/24/17 2200 Results 24 hrs Laboratory Tests Test 06/26/17 06:27 06/26/17 06:30 Hemoglobin A1c 6.0 H Thyroid Stimulating Hormone (TSH) 1.340 Medications Medications Current Medications Aspirin (Aspirin) 81 mg DAILY PO Last administered on 06/26/17 09:37; Admin Dose 81 MG; Start 06/19/17 at 09:00 Atorvastatin Calcium (Lipitor) 80 mg DAILY@21 PO Last administered on 20:20; Admin Dose 80 MG; Start 06/18/17 at 21:00 Folic Acid (Folic Acid) 1 mg DAILY PO Last administered on 06/26/17 09:56; Admin Dose 1 MG; Start 06/19/17 at 09:00 Carvedilol (Coreg) 12.5 mg BID PO Last administered on 06/26/17 09:37; Admin Dose 12.5 MG; Start 06/18/17 at 21:00 Fish Oil (Fish Oil) 1,000 mg BID PO Last administered on 06/26/17 09:36; Admin Dose 1,000 MG; Start 06/18/17 at 21:00 Lactobacillus Acidophilus (Florajen3 Capsule) 1 each BID PO Last administered on 06/26/17 09:36; Admin Dose 1 EACH; Start 06/18/17 at 21:00 Docusate Sodium (Colace) 100 mg BID PO Last administered on 06/26/17 09:36; Admin Dose 100 MG; Start 06/19/17 at 21:00 Senna (Senokot) 1 tab DAILY PO Last administered on 06/26/17 09:37; Admin Dose 1 TAB; Start 06/20/17 at 09:00 Acetaminophen (Tylenol Tab) 650 mg Q4H PRN PO PAIN AND OR ELEVATED TEMP; Start 06/19/17 at 18:30 Bisacodyl (Dulcolax Supp) 10 mg DAILY PRN [place] CONSTIPATION; Start 06/19/17 at 18 :30 Magnesium Hydroxide (Milk Of Mag) 30 ml DAILY PRN PO CONSTIPATION; Start at 18:30 Lactulose (Enulose) 20 gm DAILY PRN PO CONSTIPATION Last administered on 09:08; Admin Dose 20 GM; Start 06/19/17 at 18:30 Amlodipine Besylate (Norvasc) 5 mg DAILY PO Last administered on 06/26/17 09: 36; Admin Dose 5 MG; Start 06/22/17 at 09:00 BRI THOMAS NP Jun 26, 2017 12:48
[2017-06-26 14:00] VITALS: BP 123/84; RESP 18
--- NOTE | 2017-06-26 16:55 | CONS ---
Date/Time of Note Date/Time of Note DATE: 06/26/17 TIME: 16:54 Assessment/Plan Assessment/Plan Additional Assessment/Plan 1. 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 h/o CKD due to HTN 3. Multiple Hemispheric Brainstem embolic infracts 4. Hypertension Plan: -renal US negative for hydronephrosis -BP controlled with amlodipine 5 mg po daily, Cr 1.16, electrolytes stable - yesterday resume lisinopril 5 mg po daily, BP controlled, will check AM labs to follow up on Cr will follow up Consultation Date/Type/Reason Admit Date/Time Jun 18, 2017 at 14:17 Initial Consult Date 06/19/17 Type of Consultation: NEPHROLOGY Referring Provider: [facility] RILEY MD, [facility] HR Interval Summary Free Text/Dictation Cr improved to 1.16, pt is doing ok, BP stable Exam/Review of Systems Vital Signs Vitals Vital Signs Date Time Temp Pulse Resp B/P Pulse Ox O2 Delivery O2 Flow Rate FiO2 06/26/17 07:30 98.7 71 18 136/97 98 06/22/17 08:46 Room Air Intake and Output 06/25/17 06/25/17 06/26/17 15:00 23:00 07:00 Intake Total 800 ml Output Total 800 ml Balance 0 ml Exam Constitutional: alert Head: normocephalic Eyes: nl conjunctiva ENMT: nl external ears & nose Neck: non-tender, supple Respiratory: clear to auscultation, normal air movement Gastrointestinal: non-tender, soft 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, nl mental status, nl speech Results Result Diagram: 06/24/17219906/24/172199 Results 24 hrs Laboratory Tests Test 06/26/17 06:27 06/26/17 06:30 Hemoglobin A1c 6.0 H Thyroid Stimulating Hormone (TSH) 1.340 Medications Medications Current Medications Aspirin (Aspirin) 81 mg DAILY PO Last administered on 06/26/17 09:37; Admin Dose 81 MG; Start 06/19/17 at 09:00 Atorvastatin Calcium (Lipitor) 80 mg DAILY@21 PO Last administered on 20:20; Admin Dose 80 MG; Start 06/18/17 at 21:00 Folic Acid (Folic Acid) 1 mg DAILY PO Last administered on 06/26/17 09:56; Admin Dose 1 MG; Start 06/19/17 at 09:00 Carvedilol (Coreg) 12.5 mg BID PO Last administered on 06/26/17 09:37; Admin Dose 12.5 MG; Start 06/18/17 at 21:00 Fish Oil (Fish Oil) 1,000 mg BID PO Last administered on 06/26/17 09:36; Admin Dose 1,000 MG; Start 06/18/17 at 21:00 Lactobacillus Acidophilus (Florajen3 Capsule) 1 each BID PO Last administered on 06/26/17 09:36; Admin Dose 1 EACH; Start 06/18/17 at 21:00 Docusate Sodium (Colace) 100 mg BID PO Last administered on 06/26/17 09:36; Admin Dose 100 MG; Start 06/19/17 at 21:00 Senna (Senokot) 1 tab DAILY PO Last administered on 06/26/17 09:37; Admin Dose 1 TAB; Start 06/20/17 at 09:00 Acetaminophen (Tylenol Tab) 650 mg Q4H PRN PO PAIN AND OR ELEVATED TEMP; Start 06/19/17 at 18:30 Bisacodyl (Dulcolax Supp) 10 mg DAILY PRN [place] CONSTIPATION; Start 06/19/17 at 18 :30 Magnesium Hydroxide (Milk Of Mag) 30 ml DAILY PRN PO CONSTIPATION; Start at 18:30 Lactulose (Enulose) 20 gm DAILY PRN PO CONSTIPATION Last administered on 09:08; Admin Dose 20 GM; Start 06/19/17 at 18:30 Amlodipine Besylate (Norvasc) 5 mg DAILY PO Last administered on 06/26/17 09: 36; Admin Dose 5 MG; Start 06/22/17 at 09:00 TEGAN ALVAREZ MD Jun 26, 2017 16:55
[2017-06-26 20:00] VITALS: BP 145/83; RESP 18
[2017-06-26 21:30] VITALS: BP 158/102; PULSE 76; RESP 18
[2017-06-26] MEDS: ATORVASTATIN 80 MG TAB PO SCH (21:39)
[2017-06-26 23:00] VITALS: BP 130/86; PULSE 74; RESP 16
[2017-06-27 02:00] VITALS: BP 137/75; RESP 18
[2017-06-27 07:00] VITALS: BP 132/91; RESP 18
[2017-06-27] MEDS: FOLIC ACID 1 MG TAB PO SCH (09:03)
[2017-06-27] MEDS: DOCUSATE SODIUM 100 MG CAP PO SCH ×2 (09:03→20:53)
[2017-06-27] MEDS: SENNA TAB PO SCH (09:03)
[2017-06-27] MEDS: FISH OIL 1,000 MG CAP PO SCH ×2 (09:03→20:52)
[2017-06-27] MEDS: AMLODIPINE 5 MG TAB PO SCH (09:04)
[2017-06-27] MEDS: L ACIDOPHIL/B LACTIS/B LONGUM CAPSULE PO SCH ×2 (09:05→20:52)
[2017-06-27] MEDS: ASPIRIN 81 MG TAB PO SCH (09:05)
[2017-06-27] MEDS: LISINOPRIL 5 MG TAB PO SCH (09:05)
--- NOTE | 2017-06-27 11:13 | CONS ---
Date/Time of Note Date/Time of Note DATE: 06/27/17 TIME: 11:12 Assessment/Plan Assessment/Plan Chief Complaint/Hosp Course 1. SHERLY on CKD. -Nephro eval appreciated. -Monitor renal fxn closely and avoid nephrotoxins. 2. Brainstem CVA with right sided weakens/numbness. -continue with PT/OT. -Continue ASA,Statin and antihypertensives. -Repeat CT was reviewed and without any significant changes-Will consider MRI if indicated. -Obtain TSH and A1c to rule out other possible neuropathies. 3. HTN. Stable. -Continue antihypertensives. Patient was seen in collaboration with DR. Riley. Problems: Consultation Date/Type/Reason Admit Date/Time Jun 18, 2017 at 14:17 Initial Consult Date 06/19/17 Type of Consultation: NEPHROLOGY Referring Provider: BRIAN RILEY MD, [facility] 24 HR Interval Summary Free Text/Dictation Doing well. walking with FWW. Exam/Review of Systems Vital Signs Vitals Vital Signs Date Time Temp Pulse Resp B/P Pulse Ox O2 Delivery O2 Flow Rate FiO2 06/27/17 02:00 98.3 77 18 137/75 95 06/26/17 23:00 Room Air Intake and Output 06/26/17 06/26/17 06/27/17 15:00 23:00 07:00 Intake Total 420 ml 800 ml Output Total 500 ml Balance 420 ml 300 ml Exam General: Well developed, male, not in any acute distress . HEENT: Mild dysarthria+ Normocephalic, Atraumatic, No laceration or hematoma; Eyes: PEERL, Conjunctiva clear, Anicteric sclera Neck: Supple without any lymphadenopathy, nontender, no JVD, no carotid bruits, trachea midline, no thyromegaly Cardiac: S1, S2 auscultated, regular rhythm and rate, no mumurs or gallop Pulmonary: Normal respiratory effort. Chest clear to auscultation bilaterally, no adventitious breath sounds GI: Abdomen normal to inspection. Soft, non- distended, no masses, no rebound tenderness or guarding. Bowel sounds active on all four quadrants Genitourinary: Deferred Extremities: Right sided weakness+. No cyanosis, clubbing, or edema. Pulses [2+ ] bilaterally. Neurologic: Alert to person, place, time, and situation. Affect appropriate, intact sensation. Skin: Clean,dry, and intact. No ecchymosis, no rashes, or lesions Results Result Diagram: 06/24/17219906/24/172199 Medications Medications Current Medications Aspirin (Aspirin) 81 mg DAILY PO Last administered on 06/27/17 09:05; Admin Dose 81 MG; Start 06/19/17 at 09:00 Atorvastatin Calcium (Lipitor) 80 mg DAILY@21 PO Last administered on 21:39; Admin Dose 80 MG; Start 06/18/17 at 21:00 Folic Acid (Folic Acid) 1 mg DAILY PO Last administered on 06/27/17 09:03; Admin Dose 1 MG; Start 06/19/17 at 09:00 Carvedilol (Coreg) 12.5 mg BID PO Last administered on 06/27/17 09:04; Admin Dose 12.5 MG; Start 06/18/17 at 21:00 Fish Oil (Fish Oil) 1,000 mg BID PO Last administered on 06/27/17 09:03; Admin Dose 1,000 MG; Start 06/18/17 at 21:00 Lactobacillus Acidophilus (Florajen3 Capsule) 1 each BID PO Last administered on 06/27/17 09:05; Admin Dose 1 EACH; Start 06/18/17 at 21:00 Docusate Sodium (Colace) 100 mg BID PO Last administered on 06/27/17 09:03; Admin Dose 100 MG; Start 06/19/17 at 21:00 Senna (Senokot) 1 tab DAILY PO Last administered on 06/27/17 09:03; Admin Dose 1 TAB; Start 06/20/17 at 09:00 Acetaminophen (Tylenol Tab) 650 mg Q4H PRN PO PAIN AND OR ELEVATED TEMP; Start 06/19/17 at 18:30 Bisacodyl (Dulcolax Supp) 10 mg DAILY PRN [place] CONSTIPATION; Start 06/19/17 at 18 :30 Magnesium Hydroxide (Milk Of Mag) 30 ml DAILY PRN PO CONSTIPATION; Start at 18:30 Lactulose (Enulose) 20 gm DAILY PRN PO CONSTIPATION Last administered on 09:08; Admin Dose 20 GM; Start 06/19/17 at 18:30 Amlodipine Besylate (Norvasc) 5 mg DAILY PO Last administered on 06/27/17 09: 04; Admin Dose 5 MG; Start 06/22/17 at 09:00 Lisinopril (Zestril) 5 mg DAILY PO Last administered on 06/27/17 09:05; Admin Dose 5 MG; Start 06/27/17 at 09:00 BRI THOMAS NP Jun 27, 2017 11:13
--- NOTE | 2017-06-27 12:05 | CONS ---
Date/Time of Note Date/Time of Note DATE: 06/27/17 TIME: 12:04 Consult Date/Type/Reason Admit Date/Time Jun 18, 2017 at 14:17 Initial Consult Date 06/19/17 Type of Consultation: NEPHROLOGY Ordering Provider: [facility] RILEY MD, [facility] Subjective Comfortable Objective pulm-cta cga ambulation Vital Signs Date Time Temp Pulse Resp B/P Pulse Ox O2 Delivery O2 Flow Rate FiO2 06/27/17 02:00 98.3 77 18 137/75 95 06/26/17 23:00 Room Air Intake and Output 06/26/17 06/26/17 06/27/17 15:00 23:00 07:00 Intake Total 420 ml 800 ml Output Total 500 ml Balance 420 ml 300 ml Exam Rehab- CVA with right-sided weakness. Continue rehab program Hypertension. Hyperlipidemia. Hyponatremia. Dysphagia. History of hepatitis B. Acute on chronic kidney disease. Results/Medications Result Diagram: 06/24/17219906/24/17 220 Medications Current Medications Aspirin (Aspirin) 81 mg DAILY PO Last administered on 06/27/17 09:05; Admin Dose 81 MG; Start 06/19/17 at 09:00 Atorvastatin Calcium (Lipitor) 80 mg DAILY@21 PO Last administered on 21:39; Admin Dose 80 MG; Start 06/18/17 at 21:00 Folic Acid (Folic Acid) 1 mg DAILY PO Last administered on 06/27/17 09:03; Admin Dose 1 MG; Start 06/19/17 at 09:00 Carvedilol (Coreg) 12.5 mg BID PO Last administered on 06/27/17 09:04; Admin Dose 12.5 MG; Start 06/18/17 at 21:00 Fish Oil (Fish Oil) 1,000 mg BID PO Last administered on 06/27/17 09:03; Admin Dose 1,000 MG; Start 06/18/17 at 21:00 Lactobacillus Acidophilus (Florajen3 Capsule) 1 each BID PO Last administered on 06/27/17 09:05; Admin Dose 1 EACH; Start 06/18/17 at 21:00 Docusate Sodium (Colace) 100 mg BID PO Last administered on 06/27/17 09:03; Admin Dose 100 MG; Start 06/19/17 at 21:00 Senna (Senokot) 1 tab DAILY PO Last administered on 06/27/17 09:03; Admin Dose 1 TAB; Start 06/20/17 at 09:00 Acetaminophen (Tylenol Tab) 650 mg Q4H PRN PO PAIN AND OR ELEVATED TEMP; Start 06/19/17 at 18:30 Bisacodyl (Dulcolax Supp) 10 mg DAILY PRN [place] CONSTIPATION; Start 06/19/17 at 18 :30 Magnesium Hydroxide (Milk Of Mag) 30 ml DAILY PRN [place] CONSTIPATION; Start at 18:30 Lactulose (Enulose) 20 gm DAILY PRN PO CONSTIPATION Last administered on 09:08; Admin Dose 20 GM; Start 06/19/17 at 18:30 Amlodipine Besylate (Norvasc) 5 mg DAILY PO Last administered on 06/27/17 09: 04; Admin Dose 5 MG; Start 06/22/17 at 09:00 Lisinopril (Zestril) 5 mg DAILY PO Last administered on 06/27/17 09:05; Admin Dose 5 MG; Start 06/27/17 at 09:00 TYORN HARMON MD Jun 27, 2017 12:05
--- NOTE | 2017-06-27 16:43 | CONS ---
Date/Time of Note Date/Time of Note DATE: 06/27/17 TIME: 16:41 Assessment/Plan Assessment/Plan Additional Assessment/Plan 1. 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 h/o CKD due to HTN 3. Multiple Hemispheric Brainstem embolic infracts 4. Hypertension Plan: -renal US negative for hydronephrosis -BP controlled with amlodipine 5 mg po daily, resumed lisinopril 5 mg po daily, last Cr 1.16, electrolytes stable will check AM labs to follow up on Cr will follow up Consultation Date/Type/Reason Admit Date/Time Jun 18, 2017 at 14:17 Initial Consult Date 06/19/17 Type of Consultation: NEPHROLOGY Referring Provider: [facility] RI[facility] MD, [facility] Exam/Review of Systems Vital Signs Vitals Vital Signs Date Time Temp Pulse Resp B/P Pulse Ox O2 Delivery O2 Flow Rate FiO2 06/27/17 02:00 98.3 77 18 137/75 95 06/26/17 23:00 Room Air Intake and Output 06/26/17 06/26/17 06/27/17 15:00 23:00 07:00 Intake Total 420 ml 800 ml Output Total 500 ml Balance 420 ml 300 ml Exam Constitutional: alert Respiratory: clear to auscultation, diminished breath sounds, normal air movement Cardiovascular: nl pulses, regular rate and rhythm Gastrointestinal: non-tender, soft Neurological: 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 intact Skin: nl turgor Lymph: nl lymph nodes Results Result Diagram: 06/24/17219906/24/172199 Medications Medications Current Medications Aspirin (Aspirin) 81 mg DAILY PO Last administered on 06/27/17 09:05; Admin Dose 81 MG; Start 06/19/17 at 09:00 Atorvastatin Calcium (Lipitor) 80 mg DAILY@21 PO Last administered on 21:39; Admin Dose 80 MG; Start 06/18/17 at 21:00 Folic Acid (Folic Acid) 1 mg DAILY PO Last administered on 06/27/17 09:03; Admin Dose 1 MG; Start 06/19/17 at 09:00 Carvedilol (Coreg) 12.5 mg BID PO Last administered on 06/27/17 09:04; Admin Dose 12.5 MG; Start 06/18/17 at 21:00 Fish Oil (Fish Oil) 1,000 mg BID PO Last administered on 06/27/17 09:03; Admin Dose 1,000 MG; Start 06/18/17 at 21:00 Lactobacillus Acidophilus (Florajen3 Capsule) 1 each BID PO Last administered on 06/27/17 09:05; Admin Dose 1 EACH; Start 06/18/17 at 21:00 Docusate Sodium (Colace) 100 mg BID PO Last administered on 06/27/17 09:03; Admin Dose 100 MG; Start 06/19/17 at 21:00 Senna (Senokot) 1 tab DAILY PO Last administered on 06/27/17 09:03; Admin Dose 1 TAB; Start 06/20/17 at 09:00 Acetaminophen (Tylenol Tab) 650 mg Q4H PRN PO PAIN AND OR ELEVATED TEMP; Start 06/19/17 at 18:30 Bisacodyl (Dulcolax Supp) 10 mg DAILY PRN [place] CONSTIPATION; Start 06/19/17 at 18 :30 Magnesium Hydroxide (Milk Of Mag) 30 ml DAILY PRN PO CONSTIPATION; Start at 18:30 Lactulose (Enulose) 20 gm DAILY PRN PO CONSTIPATION Last administered on 09:08; Admin Dose 20 GM; Start 06/19/17 at 18:30 Amlodipine Besylate (Norvasc) 5 mg DAILY PO Last administered on 06/27/17 09: 04; Admin Dose 5 MG; Start 06/22/17 at 09:00 Lisinopril (Zestril) 5 mg DAILY PO Last administered on 06/27/17 09:05; Admin Dose 5 MG; Start 06/27/17 at 09:00 TEGAN ALVAREZ MD Jun 27, 2017 16:43
[2017-06-27 20:00] VITALS: BP 128/75; RESP 18
[2017-06-27] MEDS: ATORVASTATIN 80 MG TAB PO SCH (20:52)
--- NOTE | 2017-06-27 21:19 | RADRPT ---
PROCEDURE: Video-fluoroscopy swallowing study. CLINICAL INDICATION: Dysphagia. TECHNIQUE: Fluoroscopic guided video swallowing study was done in conjunction with the speech ther apist. The study was confined to the oral, pharyngeal, and cervical phases of the swallowing mechani sm. 3.5 minutes of fluoroscopy time was used. 38 series of images were obtained. COMPARISON: No prior study is available for comparison. FINDINGS: There is silent aspiration during swallowing. IMPRESSION: 1. Abnormal study with silent aspiration during swallowing. 2. Please refer to the speech therapist's recommendations for future feedings. RPTAT: QQ .Mauro Alcantar MD, MD Date Time Electronically viewed and signed by .Mauro Alcantar MD, on 06/27/2017 21:19 .R/
[2017-06-28 02:00] VITALS: BP 130/78; RESP 18
[2017-06-28] MEDS: L ACIDOPHIL/B LACTIS/B LONGUM CAPSULE PO SCH ×2 (09:08→20:22)
[2017-06-28] MEDS: FOLIC ACID 1 MG TAB PO SCH (09:09)
[2017-06-28] MEDS: DOCUSATE SODIUM 100 MG CAP PO SCH ×2 (09:09→20:24)
[2017-06-28] MEDS: SENNA TAB PO SCH (09:09)
[2017-06-28] MEDS: ASPIRIN 81 MG TAB PO SCH (09:09)
[2017-06-28] MEDS: FISH OIL 1,000 MG CAP PO SCH ×2 (09:09→20:25)
[2017-06-28] MEDS: LACTULOSE 30ML CUP PO PRN (09:09)
[2017-06-28 11:19] LABS: CALCIUM 9.4 mg/dl (8.4-10.2); CREATININE 1.49 mg/dl (0.61-1.24); POTASSIUM 3.9 mmol/L (3.5-5.1)
--- NOTE | 2017-06-28 11:26 | CONS ---
Date/Time of Note Date/Time of Note DATE: 06/28/17 TIME: 11:24 Consult Date/Type/Reason Admit Date/Time Jun 18, 2017 at 14:17 Initial Consult Date 06/19/17 Type of Consultation: NEPHROLOGY Ordering Provider: BRIAN RILEY MD, [facility] Subjective Comfortable Objective pulm-cta min assist Vital Signs Date Time Temp Pulse Resp B/P Pulse Ox O2 Delivery O2 Flow Rate FiO2 06/28/17 02:00 98.7 75 18 130/78 97 06/26/17 23:00 Room Air Intake and Output 06/27/17 06/27/17 06/28/17 15:00 23:00 07:00 Intake Total 600 ml 550 ml Output Total 400 ml Balance 200 ml 550 ml Results/Medications Result Diagram: 06/24/17 2200 06/28/17 1024 Results 24 hrs Laboratory Tests Test 06/28/17 10:24 Sodium Level 141 Potassium Level 3.9 Chloride Level 108 Carbon Dioxide Level 25 Anion Gap 12 Blood Urea Nitrogen 17 Creatinine 1.49 H Glucose Level 122 Calcium Level 9.4 Medications Current Medications Aspirin (Aspirin) 81 mg DAILY PO Last administered on 06/28/17 09:09; Admin Dose 81 MG; Start 06/19/17 at 09:00 Atorvastatin Calcium (Lipitor) 80 mg DAILY@21 PO Last administered on 20:52; Admin Dose 80 MG; Start 06/18/17 at 21:00 Folic Acid (Folic Acid) 1 mg DAILY PO Last administered on 06/28/17 09:09; Admin Dose 1 MG; Start 06/19/17 at 09:00 Carvedilol (Coreg) 12.5 mg BID PO Last administered on 06/28/17 09:10; Admin Dose 12.5 MG; Start 06/18/17 at 21:00 Fish Oil (Fish Oil) 1,000 mg BID PO Last administered on 06/28/17 09:09; Admin Dose 1,000 MG; Start 06/18/17 at 21:00 Lactobacillus Acidophilus (Florajen3 Capsule) 1 each BID PO Last administered on 06/28/17 09:08; Admin Dose 1 EACH; Start 06/18/17 at 21:00 Docusate Sodium (Colace) 100 mg BID PO Last administered on 06/28/17 09:09; Admin Dose 100 MG; Start 06/19/17 at 21:00 Senna (Senokot) 1 tab DAILY PO Last administered on 06/28/17 09:09; Admin Dose 1 TAB; Start 06/20/17 at 09:00 Acetaminophen (Tylenol Tab) 650 mg Q4H PRN PO PAIN AND OR ELEVATED TEMP; Start 06/19/17 at 18:30 Bisacodyl (Dulcolax Supp) 10 mg DAILY PRN [place] CONSTIPATION; Start 06/19/17 at 18 :30 Magnesium Hydroxide (Milk Of Mag) 30 ml DAILY PRN PO CONSTIPATION; Start at 18:30 Lactulose (Enulose) 20 gm DAILY PRN PO CONSTIPATION Last administered on 09:09; Admin Dose 20 GM; Start 06/19/17 at 18:30 Amlodipine Besylate (Norvasc) 5 mg DAILY PO Last administered on 06/27/17 09: 04; Admin Dose 5 MG; Start 06/22/17 at 09:00 Lisinopril (Zestril) 5 mg DAILY PO Last administered on 06/27/17 09:05; Admin Dose 5 MG; Start 06/27/17 at 09:00 Assessment/Plan Additional Assessment/Plan Rehab- CVA with right-sided weakness. Continue rehab plan Hypertension. Hyperlipidemia. Hyponatremia. Dysphagia. History of hepatitis B. Acute on chronic kidney disease. TYRON HARMON MD Jun 28, 2017 11:26
--- NOTE | 2017-06-28 13:06 | CONS ---
Date/Time of Note Date/Time of Note DATE: 06/28/17 TIME: 13:05 Assessment/Plan Assessment/Plan Additional Assessment/Plan Assessment and Plan: 1. Patient admitted for rehab with right-sided hemiparesis with interval improvement. 2. Stable hypertension and chronic renal insufficiency. Continue current treatment. Consultation Date/Type/Reason Admit Date/Time Jun 18, 2017 at 14:17 Initial Consult Date 06/19/17 Type of Consultation: Internal medicine Referring Provider: BRIAN RILEY MD, [facility] 24 HR Interval Summary Free Text/Dictation Patient's condition is stable. Remains awake and alert. Denies any shortness of breath, chest pain. Still exhibiting mild right sided weakness General exam; middle-aged male, awake alert, currently in no distress. Exam/Review of Systems Vital Signs Vitals Vital Signs Date Time Temp Pulse Resp B/P Pulse Ox O2 Delivery O2 Flow Rate FiO2 06/28/17 02:00 98.7 75 18 130/78 97 06/26/17 23:00 Room Air Intake and Output 06/27/17 06/27/17 06/28/17 15:00 23:00 07:00 Intake Total 600 ml 550 ml Output Total 400 ml Balance 200 ml 550 ml Exam HEENT exam; supple neck, no JVD. No lymphadenopathy. Midline trachea. No thyromegaly. Chest exam; clear to auscultation. S1-S2 audible, no murmurs. Regular rhythm. Abdomen exam; soft, nontender. No organomegaly. Bowel sounds audible. Extremity exam; no edema. 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 Results Result Diagram: 06/24/17 2200 06/28/17 1024 Results 24 hrs Laboratory Tests Test 06/28/17 10:24 Sodium Level 141 Potassium Level 3.9 Chloride Level 108 Carbon Dioxide Level 25 Anion Gap 12 Blood Urea Nitrogen 17 Creatinine 1.49 H Glucose Level 122 Calcium Level 9.4 Medications Medications Current Medications Aspirin (Aspirin) 81 mg DAILY PO Last administered on 06/28/17 09:09; Admin Dose 81 MG; Start 06/19/17 at 09:00 Atorvastatin Calcium (Lipitor) 80 mg DAILY@21 PO Last administered on 20:52; Admin Dose 80 MG; Start 06/18/17 at 21:00 Folic Acid (Folic Acid) 1 mg DAILY PO Last administered on 06/28/17 09:09; Admin Dose 1 MG; Start 06/19/17 at 09:00 Carvedilol (Coreg) 12.5 mg BID PO Last administered on 06/28/17 09:10; Admin Dose 12.5 MG; Start 06/18/17 at 21:00 Fish Oil (Fish Oil) 1,000 mg BID PO Last administered on 06/28/17 09:09; Admin Dose 1,000 MG; Start 06/18/17 at 21:00 Lactobacillus Acidophilus (Florajen3 Capsule) 1 each BID PO Last administered on 06/28/17 09:08; Admin Dose 1 EACH; Start 06/18/17 at 21:00 Docusate Sodium (Colace) 100 mg BID PO Last administered on 06/28/17 09:09; Admin Dose 100 MG; Start 06/19/17 at 21:00 Senna (Senokot) 1 tab DAILY PO Last administered on 06/28/17 09:09; Admin Dose 1 TAB; Start 06/20/17 at 09:00 Acetaminophen (Tylenol Tab) 650 mg Q4H PRN PO PAIN AND OR ELEVATED TEMP; Start 06/19/17 at 18:30 Bisacodyl (Dulcolax Supp) 10 mg DAILY PRN [place] CONSTIPATION; Start 06/19/17 at 18 :30 Magnesium Hydroxide (Milk Of Mag) 30 ml DAILY PRN PO CONSTIPATION; Start at 18:30 Lactulose (Enulose) 20 gm DAILY PRN PO CONSTIPATION Last administered on 09:09; Admin Dose 20 GM; Start 06/19/17 at 18:30 Amlodipine Besylate (Norvasc) 5 mg DAILY PO Last administered on 06/27/17 09: 04; Admin Dose 5 MG; Start 06/22/17 at 09:00 Lisinopril (Zestril) 5 mg DAILY PO Last administered on 06/27/17 09:05; Admin Dose 5 MG; Start 06/27/17 at 09:00 ELADIA KOLB Jun 28, 2017 13:06
[2017-06-28 14:00] VITALS: BP 135/88; RESP 18
[2017-06-28] MEDS: LISINOPRIL 5 MG TAB PO SCH (14:21)
[2017-06-28] MEDS: AMLODIPINE 5 MG TAB PO SCH (14:22)
[2017-06-28 19:40] VITALS: BP 132/80; RESP 19
--- NOTE | 2017-06-28 19:51 | CONS ---
Date/Time of Note Date/Time of Note DATE: 06/28/17 TIME: 19:50 Assessment/Plan Assessment/Plan Additional Assessment/Plan 1. 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 h/o CKD due to HTN 3. Multiple Hemispheric Brainstem embolic infracts 4. Hypertension Plan: -renal US negative for hydronephrosis - Cr bumped to 1,49 with addition of lisinopril, will stop lisinopril, continue only amlodipine, use hydralzine prn will follow up Consultation Date/Type/Reason Admit Date/Time Jun 18, 2017 at 14:17 Initial Consult Date 06/19/17 Type of Consultation: NEPHROLOGY Referring Provider: BRIAN RILEY MD, [facility] 24 HR Interval Summary Free Text/Dictation Cr bumped to 1,49 Exam/Review of Systems Vital Signs Vitals Vital Signs Date Time Temp Pulse Resp B/P Pulse Ox O2 Delivery O2 Flow Rate FiO2 06/28/17 19:40 98.6 76 19 132/80 98 06/26/17 23:00 Room Air Intake and Output 06/27/17 06/27/17 06/28/17 15:00 23:00 07:00 Intake Total 600 ml 550 ml Output Total 400 ml Balance 200 ml 550 ml Results Result Diagram: 06/24/17 2200 06/28/17 1024 Results 24 hrs Laboratory Tests Test 06/28/17 10:24 Sodium Level 141 Potassium Level 3.9 Chloride Level 108 Carbon Dioxide Level 25 Anion Gap 12 Blood Urea Nitrogen 17 Creatinine 1.49 H Glucose Level 122 Calcium Level 9.4 Medications Medications Current Medications Aspirin (Aspirin) 81 mg DAILY PO Last administered on 06/28/17 09:09; Admin Dose 81 MG; Start 06/19/17 at 09:00 Atorvastatin Calcium (Lipitor) 80 mg DAILY@21 PO Last administered on 20:52; Admin Dose 80 MG; Start 06/18/17 at 21:00 Folic Acid (Folic Acid) 1 mg DAILY PO Last administered on 06/28/17 09:09; Admin Dose 1 MG; Start 06/19/17 at 09:00 Carvedilol (Coreg) 12.5 mg BID PO Last administered on 06/28/17 09:10; Admin Dose 12.5 MG; Start 06/18/17 at 21:00 Fish Oil (Fish Oil) 1,000 mg BID PO Last administered on 06/28/17 09:09; Admin Dose 1,000 MG; Start 06/18/17 at 21:00 Lactobacillus Acidophilus (Florajen3 Capsule) 1 each BID PO Last administered on 06/28/17 09:08; Admin Dose 1 EACH; Start 06/18/17 at 21:00 Docusate Sodium (Colace) 100 mg BID PO Last administered on 06/28/17 09:09; Admin Dose 100 MG; Start 06/19/17 at 21:00 Senna (Senokot) 1 tab DAILY PO Last administered on 06/28/17 09:09; Admin Dose 1 TAB; Start 06/20/17 at 09:00 Acetaminophen (Tylenol Tab) 650 mg Q4H PRN PO PAIN AND OR ELEVATED TEMP; Start 06/19/17 at 18:30 Bisacodyl (Dulcolax Supp) 10 mg DAILY PRN [place] CONSTIPATION; Start 06/19/17 at 18 :30 Magnesium Hydroxide (Milk Of Mag) 30 ml DAILY PRN PO CONSTIPATION; Start at 18:30 Lactulose (Enulose) 20 gm DAILY PRN PO CONSTIPATION Last administered on 09:09; Admin Dose 20 GM; Start 06/19/17 at 18:30 Amlodipine Besylate (Norvasc) 5 mg DAILY PO Last administered on 06/28/17 14: 22; Admin Dose 5 MG; Start 06/22/17 at 09:00 Lisinopril (Zestril) 5 mg DAILY PO Last administered on 06/28/17 14:21; Admin Dose 5 MG; Start 06/27/17 at 09:00 TEGAN ALVAREZ MD Jun 28, 2017 19:51
[2017-06-28] MEDS: ATORVASTATIN 80 MG TAB PO SCH (20:24)
[2017-06-29 02:00] VITALS: BP 120/82; PULSE 70; RESP 17
[2017-06-29 07:00] VITALS: BP 131/88; RESP 18
[2017-06-29 07:30] VITALS: BP 131/88; PULSE 71; RESP 18
[2017-06-29] MEDS: L ACIDOPHIL/B LACTIS/B LONGUM CAPSULE PO SCH ×2 (09:01→20:26)
[2017-06-29] MEDS: ASPIRIN 81 MG TAB PO SCH (09:01)
[2017-06-29] MEDS: SENNA TAB PO SCH (09:02)
[2017-06-29] MEDS: FOLIC ACID 1 MG TAB PO SCH (09:02)
[2017-06-29] MEDS: FISH OIL 1,000 MG CAP PO SCH ×2 (09:02→20:21)
[2017-06-29] MEDS: AMLODIPINE 5 MG TAB PO SCH (09:02)
[2017-06-29] MEDS: DOCUSATE SODIUM 100 MG CAP PO SCH ×2 (09:02→20:21)
--- NOTE | 2017-06-29 13:49 | CONS ---
Date/Time of Note Date/Time of Note DATE: 06/29/17 TIME: 13:47 Assessment/Plan Assessment/Plan Additional Assessment/Plan 1. 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 h/o CKD due to HTN 3. Multiple Hemispheric Brainstem embolic infracts 4. Hypertension 5. pt has two episodes when his Creatinine bumped with addition of lisinopril Plan: -renal US negative for hydronephrosis - Cr bumped to 1,49 on Friday with addition of lisinopril,I stopped lisinopril yesterday, continue only amlodipine, use hydralzine prn BMP ordered tomorrow Am to follow up on Creatinine will follow up Consultation Date/Type/Reason Admit Date/Time Jun 18, 2017 at 14:17 Initial Consult Date 06/19/17 Type of Consultation: NEPHROLOGY Referring Provider: BRIAN RILEY MD, [facility] 24 HR Interval Summary Free Text/Dictation no acute events, BP stable on amlodipine, No complaints Exam/Review of Systems Vital Signs Vitals Vital Signs Date Time Temp Pulse Resp B/P Pulse Ox O2 Delivery O2 Flow Rate FiO2 06/29/17 07:30 97.8 71 18 131/88 95 Room Air Intake and Output 06/28/17 06/28/17 06/29/17 15:00 23:00 07:00 Intake Total 2000 ml 200 ml Output Total 800 ml 300 ml Balance 1200 ml -100 ml Exam Constitutional: alert Head: normocephalic Eyes: nl conjunctiva ENMT: nl external ears & nose Neck: non-tender, supple Respiratory: clear to auscultation, normal air movement Gastrointestinal: non-tender, soft Neurological: 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 intact, nl mental status, nl speech Results Result Diagram: 06/28/17 1024 Medications Medications Current Medications Aspirin (Aspirin) 81 mg DAILY PO Last administered on 06/29/17 09:01; Admin Dose 81 MG; Start 06/19/17 at 09:00 Atorvastatin Calcium (Lipitor) 80 mg DAILY@21 PO Last administered on 20:24; Admin Dose 80 MG; Start 06/18/17 at 21:00 Folic Acid (Folic Acid) 1 mg DAILY PO Last administered on 06/29/17 09:02; Admin Dose 1 MG; Start 06/19/17 at 09:00 Carvedilol (Coreg) 12.5 mg BID PO Last administered on 06/29/17 09:01; Admin Dose 12.5 MG; Start 06/18/17 at 21:00 Fish Oil (Fish Oil) 1,000 mg BID PO Last administered on 06/29/17 09:02; Admin Dose 1,000 MG; Start 06/18/17 at 21:00 Lactobacillus Acidophilus (Florajen3 Capsule) 1 each BID PO Last administered on 06/29/17 09:01; Admin Dose 1 EACH; Start 06/18/17 at 21:00 Docusate Sodium (Colace) 100 mg BID PO Last administered on 06/29/17 09:02; Admin Dose 100 MG; Start 06/19/17 at 21:00 Senna (Senokot) 1 tab DAILY PO Last administered on 06/29/17 09:02; Admin Dose 1 TAB; Start 06/20/17 at 09:00 Acetaminophen (Tylenol Tab) 650 mg Q4H PRN PO PAIN AND OR ELEVATED TEMP; Start 06/19/17 at 18:30 Bisacodyl (Dulcolax Supp) 10 mg DAILY PRN [place] CONSTIPATION; Start 06/19/17 at 18 :30 Magnesium Hydroxide (Milk Of Mag) 30 ml DAILY PRN PO CONSTIPATION; Start at 18:30 Lactulose (Enulose) 20 gm DAILY PRN PO CONSTIPATION Last administered on 09:09; Admin Dose 20 GM; Start 06/19/17 at 18:30 Amlodipine Besylate (Norvasc) 5 mg DAILY PO Last administered on 06/29/17 09: 02; Admin Dose 5 MG; Start 06/22/17 at 09:00 TEGAN ALVAREZ MD Jun 29, 2017 13:49
[2017-06-29 20:00] VITALS: BP 128/85; RESP 18
[2017-06-29] MEDS: ATORVASTATIN 80 MG TAB PO SCH (20:21)
[2017-06-30 02:00] VITALS: BP 130/79; RESP 18
[2017-06-30 06:22] LABS: BASOPHILS % 0.2 % (0.0-2.0); EOSINOPHILS # 0.3 10^3/ul (0.0-0.5); EOSINOPHILS % 3.8 % (0.0-7.0); HEMATOCRIT 39.1 % (42.0-52.0); LYMPHOCYTES # 1.3 10^3/ul (0.8-2.9); LYMPHOCYTES % 15.2 % (15.0-51.0); MEAN CORPUSCULAR HEMOGLOBIN 25.9 pg (29.0-33.0); MEAN CORPUSCULAR HGB CONC 33.2 g/dl (32.0-37.0); MEAN CORPUSCULAR VOLUME 77.9 fl (82.0-101.0); MONOCYTE # 1.1 10^3/ul (0.3-0.9); MONOCYTES % 12.9 % (0.0-11.0); NEUTROPHIL # 5.6 10^3/ul (1.6-7.5); NEUTROPHILS % 67.7 % (39.0-77.0); PLATELET COUNT 190 10^3/UL (140-415); RED BLOOD COUNT 5.02 10^6/ul (4.70-6.10); RED CELL DISTRIBUTION WIDTH 16.2 % (11.5-14.5); WHITE BLOOD COUNT 8.2 10^3/ul (4.8-10.8)
[2017-06-30 06:37] LABS: INR 1.04; PROTIME 13.6 Sec (12.2-14.2); PT RATIO 1.1
[2017-06-30 06:38] LABS: PARTIAL THROMBOPLASTIN TIME 26.4 Sec (25.0-35.0)
[2017-06-30 06:50] LABS: CALCIUM 8.6 mg/dl (8.4-10.2); CREATININE 1.37 mg/dl (0.61-1.24); POTASSIUM 3.5 mmol/L (3.5-5.1)
[2017-06-30] MEDS: DOCUSATE SODIUM 100 MG CAP PO SCH ×2 (09:04→20:35)
[2017-06-30] MEDS: ASPIRIN 81 MG TAB PO SCH (09:05)
[2017-06-30] MEDS: FISH OIL 1,000 MG CAP PO SCH ×2 (09:06→20:33)
[2017-06-30] MEDS: AMLODIPINE 5 MG TAB PO SCH (09:07)
[2017-06-30] MEDS: L ACIDOPHIL/B LACTIS/B LONGUM CAPSULE PO SCH ×2 (09:07→20:33)
[2017-06-30] MEDS: FOLIC ACID 1 MG TAB PO SCH (09:07)
[2017-06-30] MEDS: SENNA TAB PO SCH (09:08)
--- NOTE | 2017-06-30 09:36 | CONS ---
Date/Time of Note Date/Time of Note DATE: 06/30/17 TIME: 09:36 Consult Date/Type/Reason Admit Date/Time Jun 18, 2017 at 14:17 Initial Consult Date 06/19/17 Type of Consultation: NEPHROLOGY Ordering Provider: [facility] RILEY MD, [facility] Objective Vital Signs Date Time Temp Pulse Resp B/P Pulse Ox O2 Delivery O2 Flow Rate FiO2 06/30/17 02:00 98.4 78 18 130/79 96 06/29/17 07:30 Room Air Intake and Output 06/29/17 06/29/17 06/30/17 15:00 23:00 07:00 Intake Total 720 ml 400 ml Output Total 600 ml Balance 120 ml 400 ml INTERDISCIPLINARY TEAM CONFERENCE BOWEL- Cont BLADDER-Cont SKIN- intact OT- DRESSING-cga BATHING-cga TOILETING-cga PT- BED MOBILITY-cga TRANSFERS-sba/cga for safety AMBULATION-sba/cga for safety SPEECH- COGNITION-min DYPHAGIA-dysphagia diet A/P- Interdisciplinary team conference held today. Please see interdisciplinary sheet. Working toward d.c. home with post discharge follow up of physical therapy, occupational therapy and speech therapy and supervised environment. Working on extension with a d/c on 07/08. Results/Medications Result Diagram: 06/30/17 0601 06/30/17 0601 Results 24 hrs Laboratory Tests Test 06/30/17 06:01 White Blood Count 8.2 Red Blood Count 5.02 Hemoglobin 13.0 L Hematocrit 39.1 L Mean Corpuscular Volume 77.9 L Mean Corpuscular Hemoglobin 25.9 L Mean Corpuscular Hemoglobin Concent 33.2 Red Cell Distribution Width 16.2 H Platelet Count 190 Mean Platelet Volume 10.0 Neutrophils % 67.7 Lymphocytes % 15.2 Monocytes % 12.9 H Eosinophils % 3.8 Basophils % 0.2 Nucleated Red Blood Cells % 0.0 Neutrophils # 5.6 Lymphocytes # 1.3 Monocytes # 1.1 H Eosinophils # 0.3 Basophils # 0.0 Nucleated Red Blood Cells # 0.0 Prothrombin Time 13.6 Prothrombin Time Ratio 1.1 INR International Normalized Ratio 1.04 Activated Partial Thromboplast Time 26.4 Sodium Level 139 Potassium Level 3.5 Chloride Level 110 Carbon Dioxide Level 22 Anion Gap 11 Blood Urea Nitrogen 16 Creatinine 1.37 H Glucose Level 94 Calcium Level 8.6 Medications Current Medications Aspirin (Aspirin) 81 mg DAILY PO Last administered on 06/30/17 09:05; Admin Dose 81 MG; Start 06/19/17 at 09:00 Atorvastatin Calcium (Lipitor) 80 mg DAILY@21 PO Last administered on 20:21; Admin Dose 80 MG; Start 06/18/17 at 21:00 Folic Acid (Folic Acid) 1 mg DAILY PO Last administered on 06/30/17 09:07; Admin Dose 1 MG; Start 06/19/17 at 09:00 Carvedilol (Coreg) 12.5 mg BID PO Last administered on 06/30/17 09:06; Admin Dose 12.5 MG; Start 06/18/17 at 21:00 Fish Oil (Fish Oil) 1,000 mg BID PO Last administered on 06/30/17 09:06; Admin Dose 1,000 MG; Start 06/18/17 at 21:00 Lactobacillus Acidophilus (Florajen3 Capsule) 1 each BID PO Last administered on 06/30/17 09:07; Admin Dose 1 EACH; Start 06/18/17 at 21:00 Docusate Sodium (Colace) 100 mg BID PO Last administered on 06/30/17 09:04; Admin Dose 100 MG; Start 06/19/17 at 21:00 Senna (Senokot) 1 tab DAILY PO Last administered on 06/30/17 09:08; Admin Dose 1 TAB; Start 06/20/17 at 09:00 Acetaminophen (Tylenol Tab) 650 mg Q4H PRN PO PAIN AND OR ELEVATED TEMP; Start 06/19/17 at 18:30 Bisacodyl (Dulcolax Supp) 10 mg DAILY PRN [place] CONSTIPATION; Start 06/19/17 at 18 :30 Magnesium Hydroxide (Milk Of Mag) 30 ml DAILY PRN PO CONSTIPATION; Start at 18:30 Lactulose (Enulose) 20 gm DAILY PRN PO CONSTIPATION Last administered on 09:09; Admin Dose 20 GM; Start 06/19/17 at 18:30 Amlodipine Besylate (Norvasc) 5 mg DAILY PO Last administered on 06/30/17 09: 07; Admin Dose 5 MG; Start 06/22/17 at 09:00 TYRON HARMON MD Jun 30, 2017 09:36
--- NOTE | 2017-06-30 15:26 | CONS ---
Date/Time of Note Date/Time of Note DATE: 06/30/17 TIME: 15:20 Assessment/Plan Assessment/Plan Chief Complaint/Hosp Course 1. SHERLY on CKD. -Nephro eval appreciated. -Monitor renal fxn closely and avoid nephrotoxins. 2. Brainstem CVA with right sided weakens/numbness. -continue with PT/OT. -Continue ASA,Statin and antihypertensives. 3. HTN. Stable. -Continue antihypertensives. Patient was seen in collaboration with DR. Riley. Problems: Consultation Date/Type/Reason Admit Date/Time Jun 18, 2017 at 14:17 Initial Consult Date 06/19/17 Type of Consultation: NEPHROLOGY Referring Provider: BRIAN RILEY MD, [facility] 24 HR Interval Summary Free Text/Dictation Doing well. Participating in physical therapy. Exam/Review of Systems Vital Signs Vitals Vital Signs Date Time Temp Pulse Resp B/P Pulse Ox O2 Delivery O2 Flow Rate FiO2 06/30/17 02:00 98.4 78 18 130/79 96 06/29/17 07:30 Room Air Intake and Output 06/29/17 06/29/17 06/30/17 15:00 23:00 07:00 Intake Total 720 ml 400 ml Output Total 600 ml Balance 120 ml 400 ml Exam General: Well developed, male, not in any acute distress . HEENT: Mild dysarthria+ Normocephalic, Atraumatic, No laceration or hematoma; Eyes: PEERL, Conjunctiva clear, Anicteric sclera Neck: Supple without any lymphadenopathy, nontender, no JVD, no carotid bruits, trachea midline, no thyromegaly Cardiac: S1, S2 auscultated, regular rhythm and rate, no mumurs or gallop Pulmonary: Normal respiratory effort. Chest clear to auscultation bilaterally, no adventitious breath sounds GI: Abdomen normal to inspection. Soft, non- distended, no masses, no rebound tenderness or guarding. Bowel sounds active on all four quadrants Genitourinary: Deferred Extremities: Right sided weakness+. No cyanosis, clubbing, or edema. Pulses [2+ ] bilaterally. Neurologic: Alert to person, place, time, and situation. Affect appropriate, intact sensation. Skin: Clean,dry, and intact. No ecchymosis, no rashes, or lesions Results Result Diagram: 06/30/1760006/30/17600 Results 24 hrs Laboratory Tests Test 06/30/17 06:01 White Blood Count 8.2 Red Blood Count 5.02 Hemoglobin 13.0 L Hematocrit 39.1 L Mean Corpuscular Volume 77.9 L Mean Corpuscular Hemoglobin 25.9 L Mean Corpuscular Hemoglobin Concent 33.2 Red Cell Distribution Width 16.2 H Platelet Count 190 Mean Platelet Volume 10.0 Neutrophils % 67.7 Lymphocytes % 15.2 Monocytes % 12.9 H Eosinophils % 3.8 Basophils % 0.2 Nucleated Red Blood Cells % 0.0 Neutrophils # 5.6 Lymphocytes # 1.3 Monocytes # 1.1 H Eosinophils # 0.3 Basophils # 0.0 Nucleated Red Blood Cells # 0.0 Prothrombin Time 13.6 Prothrombin Time Ratio 1.1 INR International Normalized Ratio 1.04 Activated Partial Thromboplast Time 26.4 Sodium Level 139 Potassium Level 3.5 Chloride Level 110 Carbon Dioxide Level 22 Anion Gap 11 Blood Urea Nitrogen 16 Creatinine 1.37 H Glucose Level 94 Calcium Level 8.6 Medications Medications Current Medications Aspirin (Aspirin) 81 mg DAILY PO Last administered on 06/30/17 09:05; Admin Dose 81 MG; Start 06/19/17 at 09:00 Atorvastatin Calcium (Lipitor) 80 mg DAILY@21 PO Last administered on 20:21; Admin Dose 80 MG; Start 06/18/17 at 21:00 Folic Acid (Folic Acid) 1 mg DAILY PO Last administered on 06/30/17 09:07; Admin Dose 1 MG; Start 06/19/17 at 09:00 Carvedilol (Coreg) 12.5 mg BID PO Last administered on 06/30/17 09:06; Admin Dose 12.5 MG; Start 06/18/17 at 21:00 Fish Oil (Fish Oil) 1,000 mg BID PO Last administered on 06/30/17 09:06; Admin Dose 1,000 MG; Start 06/18/17 at 21:00 Lactobacillus Acidophilus (Florajen3 Capsule) 1 each BID PO Last administered on 06/30/17 09:07; Admin Dose 1 EACH; Start 06/18/17 at 21:00 Docusate Sodium (Colace) 100 mg BID PO Last administered on 06/30/17 09:04; Admin Dose 100 MG; Start 06/19/17 at 21:00 Senna (Senokot) 1 tab DAILY PO Last administered on 06/30/17 09:08; Admin Dose 1 TAB; Start 06/20/17 at 09:00 Acetaminophen (Tylenol Tab) 650 mg Q4H PRN PO PAIN AND OR ELEVATED TEMP; Start 06/19/17 at 18:30 Bisacodyl (Dulcolax Supp) 10 mg DAILY PRN [place] CONSTIPATION; Start 06/19/17 at 18 :30 Magnesium Hydroxide (Milk Of Mag) 30 ml DAILY PRN [place] CONSTIPATION; Start at 18:30 Lactulose (Enulose) 20 gm DAILY PRN PO CONSTIPATION Last administered on 09:09; Admin Dose 20 GM; Start 06/19/17 at 18:30 Amlodipine Besylate (Norvasc) 5 mg DAILY PO Last administered on 06/30/17 09: 07; Admin Dose 5 MG; Start 06/22/17 at 09:00 BRI THOMAS NP Jun 30, 2017 15:26
--- NOTE | 2017-06-30 18:48 | CONS ---
Date/Time of Note Date/Time of Note DATE: 06/30/17 TIME: 18:46 Assessment/Plan Assessment/Plan Additional Assessment/Plan 1. 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 h/o CKD due to HTN 3. Multiple Hemispheric Brainstem embolic infracts 4. Hypertension 5. pt has two episodes when his Creatinine bumped with addition of lisinopril Plan: -renal US negative for hydronephrosis - Cr bumped to 1,49 on Friday with addition of lisinopril,I stopped lisinopril on 06/28/17- Now cr slightly improved to 1.37 continue only amlodipine, use hydralzine prn no need for ACEI/ARB on discharge will follow up Consultation Date/Type/Reason Admit Date/Time Jun 18, 2017 at 14:17 Initial Consult Date 06/19/17 Type of Consultation: NEPHROLOGY Referring Provider: BRIAN RILEY MD, [facility] 24 HR Interval Summary Free Text/Dictation Cr slilghtly improved to 1.37 after lisinopril stopped, BP controlled Exam/Review of Systems Vital Signs Vitals Vital Signs Date Time Temp Pulse Resp B/P Pulse Ox O2 Delivery O2 Flow Rate FiO2 06/30/17 02:00 98.4 78 18 130/79 96 06/29/17 07:30 Room Air Intake and Output 06/29/17 06/29/17 06/30/17 15:00 23:00 07:00 Intake Total 720 ml 400 ml Output Total 600 ml Balance 120 ml 400 ml Exam Constitutional: alert Psych: no complaints Head: normocephalic Eyes: nl conjunctiva ENMT: nl external ears & nose Neck: non-tender, supple Respiratory: clear to auscultation, diminished breath sounds, normal air movement Cardiovascular: nl pulses, regular rate and rhythm Gastrointestinal: non-tender, soft Neurological: [employer]OD[employer] II-XII intact Skin: nl turgor Lymph: nl lymph nodes Results Result Diagram: 06/30/17 0601 06/30/17 0601 Results 24 hrs Laboratory Tests Test 06/30/17 06:01 White Blood Count 8.2 Red Blood Count 5.02 Hemoglobin 13.0 L Hematocrit 39.1 L Mean Corpuscular Volume 77.9 L Mean Corpuscular Hemoglobin 25.9 L Mean Corpuscular Hemoglobin Concent 33.2 Red Cell Distribution Width 16.2 H Platelet Count 190 Mean Platelet Volume 10.0 Neutrophils % 67.7 Lymphocytes % 15.2 Monocytes % 12.9 H Eosinophils % 3.8 Basophils % 0.2 Nucleated Red Blood Cells % 0.0 Neutrophils # 5.6 Lymphocytes # 1.3 Monocytes # 1.1 H Eosinophils # 0.3 Basophils # 0.0 Nucleated Red Blood Cells # 0.0 Prothrombin Time 13.6 Prothrombin Time Ratio 1.1 INR International Normalized Ratio 1.04 Activated Partial Thromboplast Time 26.4 Sodium Level 139 Potassium Level 3.5 Chloride Level 110 Carbon Dioxide Level 22 Anion Gap 11 Blood Urea Nitrogen 16 Creatinine 1.37 H Glucose Level 94 Calcium Level 8.6 Medications Medications Current Medications Aspirin (Aspirin) 81 mg DAILY PO Last administered on 06/30/17 09:05; Admin Dose 81 MG; Start 06/19/17 at 09:00 Atorvastatin Calcium (Lipitor) 80 mg DAILY@21 PO Last administered on 20:21; Admin Dose 80 MG; Start 06/18/17 at 21:00 Folic Acid (Folic Acid) 1 mg DAILY PO Last administered on 06/30/17 09:07; Admin Dose 1 MG; Start 06/19/17 at 09:00 Carvedilol (Coreg) 12.5 mg BID PO Last administered on 06/30/17 09:06; Admin Dose 12.5 MG; Start 06/18/17 at 21:00 Fish Oil (Fish Oil) 1,000 mg BID PO Last administered on 06/30/17 09:06; Admin Dose 1,000 MG; Start 06/18/17 at 21:00 Lactobacillus Acidophilus (Florajen3 Capsule) 1 each BID PO Last administered on 06/30/17 09:07; Admin Dose 1 EACH; Start 06/18/17 at 21:00 Docusate Sodium (Colace) 100 mg BID PO Last administered on 06/30/17 09:04; Admin Dose 100 MG; Start 06/19/17 at 21:00 Senna (Senokot) 1 tab DAILY PO Last administered on 06/30/17 09:08; Admin Dose 1 TAB; Start 06/20/17 at 09:00 Acetaminophen (Tylenol Tab) 650 mg Q4H PRN PO PAIN AND OR ELEVATED TEMP; Start 06/19/17 at 18:30 Bisacodyl (Dulcolax Supp) 10 mg DAILY PRN [place] CONSTIPATION; Start 06/19/17 at 18 :30 Magnesium Hydroxide (Milk Of Mag) 30 ml DAILY PRN PO CONSTIPATION; Start at 18:30 Lactulose (Enulose) 20 gm DAILY PRN PO CONSTIPATION Last administered on 09:09; Admin Dose 20 GM; Start 06/19/17 at 18:30 Amlodipine Besylate (Norvasc) 5 mg DAILY PO Last administered on 06/30/17 09: 07; Admin Dose 5 MG; Start 06/22/17 at 09:00 TEGAN ALVAREZ MD Jun 30, 2017 18:48
[2017-06-30] MEDS: ATORVASTATIN 80 MG TAB PO SCH (20:32)
[2017-06-30 20:34] VITALS: BP 136/93; PULSE 68
[2017-07-01 07:00] VITALS: BP 139/93; RESP 18
[2017-07-01 07:05] VITALS: BP 139/93; PULSE 64; RESP 18
[2017-07-01] MEDS: FISH OIL 1,000 MG CAP PO SCH ×2 (08:49→20:23)
[2017-07-01] MEDS: AMLODIPINE 5 MG TAB PO SCH (08:50)
[2017-07-01] MEDS: SENNA TAB PO SCH (08:50)
[2017-07-01] MEDS: DOCUSATE SODIUM 100 MG CAP PO SCH ×2 (08:51→20:23)
[2017-07-01] MEDS: L ACIDOPHIL/B LACTIS/B LONGUM CAPSULE PO SCH ×2 (08:51→20:25)
[2017-07-01] MEDS: ASPIRIN 81 MG TAB PO SCH (08:51)
[2017-07-01] MEDS: FOLIC ACID 1 MG TAB PO SCH (08:53)
--- NOTE | 2017-07-01 11:28 | CONS ---
Date/Time of Note Date/Time of Note DATE: 07/01/17 TIME: 11:27 Consult Date/Type/Reason Admit Date/Time Jun 18, 2017 at 14:17 Initial Consult Date 06/19/17 Type of Consultation: NEPHROLOGY Ordering Provider: [facility]RIAN RI[facility] MD, [facility] Subjective Doing well Objective pulm-cta cga ambulation with FWW Vital Signs Date Time Temp Pulse Resp B/P Pulse Ox O2 Delivery O2 Flow Rate FiO2 07/01/17 07:00 98.3 64 18 139/93 95 06/29/17 07:30 Room Air Intake and Output 06/30/17 06/30/17 07/01/17 15:00 23:00 07:00 Intake Total 640 ml 300 ml Output Total 1 ml Balance 639 ml 300 ml Results/Medications Result Diagram: 06/30/17 0601 06/30/17 0601 Medications Current Medications Aspirin (Aspirin) 81 mg DAILY PO Last administered on 07/01/17 08:51; Admin Dose 81 MG; Start 06/19/17 at 09:00 Atorvastatin Calcium (Lipitor) 80 mg DAILY@21 PO Last administered on 20:32; Admin Dose 80 MG; Start 06/18/17 at 21:00 Folic Acid (Folic Acid) 1 mg DAILY PO Last administered on 07/01/17 08:53; Admin Dose 1 MG; Start 06/19/17 at 09:00 Carvedilol (Coreg) 12.5 mg BID PO Last administered on 07/01/17 08:50; Admin Dose 12.5 MG; Start 06/18/17 at 21:00 Fish Oil (Fish Oil) 1,000 mg BID PO Last administered on 07/01/17 08:49; Admin Dose 1,000 MG; Start 06/18/17 at 21:00 Lactobacillus Acidophilus (Florajen3 Capsule) 1 each BID PO Last administered on 07/01/17 08:51; Admin Dose 1 EACH; Start 06/18/17 at 21:00 Docusate Sodium (Colace) 100 mg BID PO Last administered on 07/01/17 08:51; Admin Dose 100 MG; Start 06/19/17 at 21:00 Senna (Senokot) 1 tab DAILY PO Last administered on 07/01/17 08:50; Admin Dose 1 TAB; Start 06/20/17 at 09:00 Acetaminophen (Tylenol Tab) 650 mg Q4H PRN PO PAIN AND OR ELEVATED TEMP; Start 06/19/17 at 18:30 Bisacodyl (Dulcolax Supp) 10 mg DAILY PRN [place] CONSTIPATION; Start 06/19/17 at 18 :30 Magnesium Hydroxide (Milk Of Mag) 30 ml DAILY PRN PO CONSTIPATION; Start at 18:30 Lactulose (Enulose) 20 gm DAILY PRN PO CONSTIPATION Last administered on 09:09; Admin Dose 20 GM; Start 06/19/17 at 18:30 Amlodipine Besylate (Norvasc) 5 mg DAILY PO Last administered on 07/01/17 08: 50; Admin Dose 5 MG; Start 06/22/17 at 09:00 Assessment/Plan Additional Assessment/Plan Rehab- CVA with right-sided weakness. Continue rehab program Hypertension. Hyperlipidemia. Hyponatremia. Dysphagia. History of hepatitis B. Acute on chronic kidney disease. TYRON HARMON MD Jul 01, 2017 11:28
--- NOTE | 2017-07-01 14:32 | CONS ---
Date/Time of Note Date/Time of Note DATE: 07/01/17 TIME: :26 Assessment/Plan Assessment/Plan Chief Complaint/Hosp Course 1. SHERLY on CKD. Renal function had worsened after starting lisinopril. -Nephro eval appreciated and recommended no further GARETH inhibitors. -Monitor renal fxn closely and avoid nephrotoxins. 2. Brainstem CVA with right sided weakens/numbness. -continue with PT/OT. -Continue ASA,Statin and antihypertensives. 3. HTN. Stable. -Continue antihypertensives. Patient was seen in collaboration with DR. Riley. Problems: Consultation Date/Type/Reason Admit Date/Time Jun 18, 2017 at 14:17 Initial Consult Date 06/19/17 Type of Consultation: NEPHROLOGY Referring Provider: BRIAN RILEY MD, [facility] 24 HR Interval Summary Free Text/Dictation No acute overnight episodes. Has been participating in physical therapy. Exam/Review of Systems Vital Signs Vitals Vital Signs Date Time Temp Pulse Resp B/P Pulse Ox O2 Delivery O2 Flow Rate FiO2 07/01/17 07:05 98.3 64 18 139/93 95 Room Air Intake and Output 06/30/17 06/30/17 07/01/17 15:00 23:00 07:00 Intake Total 640 ml 300 ml Output Total 1 ml Balance 639 ml 300 ml Exam General: Well developed, male, not in any acute distress . HEENT: Mild dysarthria+ Normocephalic, Atraumatic, No laceration or hematoma; Eyes: PEERL, Conjunctiva clear, Anicteric sclera Neck: Supple without any lymphadenopathy, nontender, no JVD, no carotid bruits, trachea midline, no thyromegaly Cardiac: S1, S2 auscultated, regular rhythm and rate, no mumurs or gallop Pulmonary: Normal respiratory effort. Chest clear to auscultation bilaterally, no adventitious breath sounds GI: Abdomen normal to inspection. Soft, non- distended, no masses, no rebound tenderness or guarding. Bowel sounds active on all four quadrants Genitourinary: Deferred Extremities: Right sided weakness+. No cyanosis, clubbing, or edema. Pulses [2+ ] bilaterally. Neurologic: Alert to person, place, time, and situation. Affect appropriate, intact sensation. Skin: Clean,dry, and intact. No ecchymosis, no rashes, or lesions Results Result Diagram: 06/30/17 0606/30/17 0601 Medications Medications Current Medications Aspirin (Aspirin) 81 mg DAILY PO Last administered on 07/01/17 08:51; Admin Dose 81 MG; Start 06/19/17 at 09:00 Atorvastatin Calcium (Lipitor) 80 mg DAILY@21 PO Last administered on 20:32; Admin Dose 80 MG; Start 06/18/17 at 21:00 Folic Acid (Folic Acid) 1 mg DAILY PO Last administered on 07/01/17 08:53; Admin Dose 1 MG; Start 06/19/17 at 09:00 Carvedilol (Coreg) 12.5 mg BID PO Last administered on 07/01/17 08:50; Admin Dose 12.5 MG; Start 06/18/17 at 21:00 Fish Oil (Fish Oil) 1,000 mg BID PO Last administered on 07/01/17 08:49; Admin Dose 1,000 MG; Start 06/18/17 at 21:00 Lactobacillus Acidophilus (Florajen3 Capsule) 1 each BID PO Last administered on 07/01/17 08:51; Admin Dose 1 EACH; Start 06/18/17 at 21:00 Docusate Sodium (Colace) 100 mg BID PO Last administered on 07/01/17 08:51; Admin Dose 100 MG; Start 06/19/17 at 21:00 Senna (Senokot) 1 tab DAILY PO Last administered on 07/01/17 08:50; Admin Dose 1 TAB; Start 06/20/17 at 09:00 Acetaminophen (Tylenol Tab) 650 mg Q4H PRN PO PAIN AND OR ELEVATED TEMP; Start 06/19/17 at 18:30 Bisacodyl (Dulcolax Supp) 10 mg DAILY PRN [place] CONSTIPATION; Start 06/19/17 at 18 :30 Magnesium Hydroxide (Milk Of Mag) 30 ml DAILY PRN PO CONSTIPATION; Start at 18:30 Lactulose (Enulose) 20 gm DAILY PRN PO CONSTIPATION Last administered on 09:09; Admin Dose 20 GM; Start 06/19/17 at 18:30 Amlodipine Besylate (Norvasc) 5 mg DAILY PO Last administered on 9/26/17at 08: 50; Admin Dose 5 MG; Start 06/22/17 at 09:00 BRI THOMAS NP Jul 01, 2017 14:32
--- NOTE | 2017-07-01 17:27 | CONS ---
Date/Time of Note Date/Time of Note DATE: 07/01/17 TIME: 17:26 Assessment/Plan Assessment/Plan Additional Assessment/Plan 1. 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 h/o CKD due to HTN 3. Multiple Hemispheric Brainstem embolic infracts 4. Hypertension 5. pt has two episodes when his Creatinine bumped with addition of lisinopril Plan: -renal US negative for hydronephrosis -Cr bumped to 1,49 on Friday with addition of lisinopril,I stopped lisinopril on 06/28/17- Now cr slightly improved to 1.37 continue only amlodipine, use hydralzine prn no need for ACEI/ARB on discharge will follow up Consultation Date/Type/Reason Admit Date/Time Jun 18, 2017 at 14:17 Initial Consult Date 06/19/17 Type of Consultation: NEPHROLOGY Referring Provider: BRIAN RILEY MD, [facility] 24 HR Interval Summary Free Text/Dictation BP controlled, last Cr 1.37, afebrile Exam/Review of Systems Vital Signs Vitals Vital Signs Date Time Temp Pulse Resp B/P Pulse Ox O2 Delivery O2 Flow Rate FiO2 07/01/17 07:05 98.3 64 18 139/93 95 Room Air Intake and Output 06/30/17 06/30/17 07/01/17 15:00 23:00 07:00 Intake Total 640 ml 300 ml Output Total 1 ml Balance 639 ml 300 ml Exam Constitutional: alert Psych: no complaints Respiratory: clear to auscultation, diminished breath sounds, normal air movement Cardiovascular: nl pulses, regular rate and rhythm Gastrointestinal: non-tender, soft Neurological: [employer] II-XII intact Skin: nl turgor Lymph: nl lymph nodes Results Result Diagram: 06/30/17 0601 06/30/17 0601 Medications Medications Current Medications Aspirin (Aspirin) 81 mg DAILY PO Last administered on 07/01/17 08:51; Admin Dose 81 MG; Start 06/19/17 at 09:00 Atorvastatin Calcium (Lipitor) 80 mg DAILY@21 PO Last administered on 20:32; Admin Dose 80 MG; Start 06/18/17 at 21:00 Folic Acid (Folic Acid) 1 mg DAILY PO Last administered on 07/01/17 08:53; Admin Dose 1 MG; Start 06/19/17 at 09:00 Carvedilol (Coreg) 12.5 mg BID PO Last administered on 07/01/17 08:50; Admin Dose 12.5 MG; Start 06/18/17 at 21:00 Fish Oil (Fish Oil) 1,000 mg BID PO Last administered on 07/01/17 08:49; Admin Dose 1,000 MG; Start 06/18/17 at 21:00 Lactobacillus Acidophilus (Florajen3 Capsule) 1 each BID PO Last administered on 07/01/17 08:51; Admin Dose 1 EACH; Start 06/18/17 at 21:00 Docusate Sodium (Colace) 100 mg BID PO Last administered on 07/01/17 08:51; Admin Dose 100 MG; Start 06/19/17 at 21:00 Senna (Senokot) 1 tab DAILY PO Last administered on 07/01/17 08:50; Admin Dose 1 TAB; Start 06/20/17 at 09:00 Acetaminophen (Tylenol Tab) 650 mg Q4H PRN PO PAIN AND OR ELEVATED TEMP; Start 06/19/17 at 18:30 Bisacodyl (Dulcolax Supp) 10 mg DAILY PRN [place] CONSTIPATION; Start 06/19/17 at 18 :30 Magnesium Hydroxide (Milk Of Mag) 30 ml DAILY PRN PO CONSTIPATION; Start at 18:30 Lactulose (Enulose) 20 gm DAILY PRN PO CONSTIPATION Last administered on 09:09; Admin Dose 20 GM; Start 06/19/17 at 18:30 Amlodipine Besylate (Norvasc) 5 mg DAILY PO Last administered on 07/01/17 08: 50; Admin Dose 5 MG; Start 06/22/17 at 09:00 TEGAN ALVAREZ MD Jul 01, 2017 17:27
[2017-07-01 20:00] VITALS: BP 151/94; RESP 18
[2017-07-01] MEDS: ATORVASTATIN 80 MG TAB PO SCH (20:23)
[2017-07-02 02:00] VITALS: BP 127/86; RESP 18
[2017-07-02 08:00] VITALS: BP 125/95; RESP 18
[2017-07-02] MEDS: SENNA TAB PO SCH (08:35)
[2017-07-02] MEDS: L ACIDOPHIL/B LACTIS/B LONGUM CAPSULE PO SCH ×2 (08:35→20:58)
[2017-07-02] MEDS: FOLIC ACID 1 MG TAB PO SCH (08:36)
[2017-07-02] MEDS: DOCUSATE SODIUM 100 MG CAP PO SCH ×2 (08:36→20:55)
[2017-07-02] MEDS: ASPIRIN 81 MG TAB PO SCH (08:36)
[2017-07-02] MEDS: FISH OIL 1,000 MG CAP PO SCH ×2 (08:36→20:55)
[2017-07-02] MEDS: AMLODIPINE 5 MG TAB PO SCH (08:37)
--- NOTE | 2017-07-02 12:13 | CONS ---
Date/Time of Note Date/Time of Note DATE: 07/02/17 TIME: 12:11 Consult Date/Type/Reason Admit Date/Time Jun 18, 2017 at 14:17 Initial Consult Date 06/19/17 Type of Consultation: NEPHROLOGY Ordering Provider: [facility] RI[facility], [facility] Subjective patient comfortable Objective sba transfer and ambulation Vital Signs Date Time Temp Pulse Resp B/P Pulse Ox O2 Delivery O2 Flow Rate FiO2 07/02/17 08:00 98.6 68 18 125/95 96 07/01/17 07:05 Room Air Intake and Output 07/01/17 07/01/17 07/02/17 15:00 23:00 07:00 Intake Total 1040 ml 250 ml Output Total 951 ml Balance 89 ml 250 ml Results/Medications Result Diagram: 06/30/17 0601 06/30/17 0601 Medications Current Medications Aspirin (Aspirin) 81 mg DAILY PO Last administered on 07/02/17 08:36; Admin Dose 81 MG; Start 06/19/17 at 09:00 Atorvastatin Calcium (Lipitor) 80 mg DAILY@21 PO Last administered on 20:23; Admin Dose 80 MG; Start 06/18/17 at 21:00 Folic Acid (Folic Acid) 1 mg DAILY PO Last administered on 07/02/17 08:36; Admin Dose 1 MG; Start 06/19/17 at 09:00 Carvedilol (Coreg) 12.5 mg BID PO Last administered on 07/02/17 08:37; Admin Dose 12.5 MG; Start 06/18/17 at 21:00 Fish Oil (Fish Oil) 1,000 mg BID PO Last administered on 07/02/17 08:36; Admin Dose 1,000 MG; Start 06/18/17 at 21:00 Lactobacillus Acidophilus (Florajen3 Capsule) 1 each BID PO Last administered on 07/02/17 08:35; Admin Dose 1 EACH; Start 06/18/17 at 21:00 Docusate Sodium (Colace) 100 mg BID PO Last administered on 07/02/17 08:36; Admin Dose 100 MG; Start 06/19/17 at 21:00 Senna (Senokot) 1 tab DAILY PO Last administered on 07/02/17 08:35; Admin Dose 1 TAB; Start 06/20/17 at 09:00 Acetaminophen (Tylenol Tab) 650 mg Q4H PRN PO PAIN AND OR ELEVATED TEMP; Start 06/19/17 at 18:30 Bisacodyl (Dulcolax Supp) 10 mg DAILY PRN [place] CONSTIPATION; Start 06/19/17 at 18 :30 Magnesium Hydroxide (Milk Of Mag) 30 ml DAILY PRN PO CONSTIPATION; Start at 18:30 Lactulose (Enulose) 20 gm DAILY PRN PO CONSTIPATION Last administered on 09:09; Admin Dose 20 GM; Start 06/19/17 at 18:30 Amlodipine Besylate (Norvasc) 5 mg DAILY PO Last administered on 07/02/17 08: 37; Admin Dose 5 MG; Start 06/22/17 at 09:00 Assessment/Plan Additional Assessment/Plan Rehab- CVA with right-sided weakness. Continue rehab program, caregiver training in progress Hypertension. Hyperlipidemia. Hyponatremia. Dysphagia. History of hepatitis B. Acute on chronic kidney disease. TYRON HARMON MD Jul 02, 2017 12:13
--- NOTE | 2017-07-02 15:24 | CONS ---
Date/Time of Note Date/Time of Note DATE: 07/02/17 TIME: 15:23 Assessment/Plan Assessment/Plan Chief Complaint/Hosp Course 1. SHERLY on CKD. -Nephro eval appreciated and recommended no further GARETH inhibitors. -Monitor renal fxn closely and avoid nephrotoxins. 2. Brainstem CVA with right sided weakens/numbness. -continue with PT/OT. -Continue ASA,Statin and antihypertensives. 3. HTN. Stable. -Continue antihypertensives. Patient was seen in collaboration with DR. Riley. Problems: Consultation Date/Type/Reason Admit Date/Time Jun 18, 2017 at 14:17 Initial Consult Date 06/19/17 Type of Consultation: NEPHROLOGY Referring Provider: BRIAN RILEY MD, [facility] 24 HR Interval Summary Free Text/Dictation Doing well. Participates in PT. Exam/Review of Systems Vital Signs Vitals Vital Signs Date Time Temp Pulse Resp B/P Pulse Ox O2 Delivery O2 Flow Rate FiO2 07/02/17 08:00 98.6 68 18 125/95 96 07/01/17 07:05 Room Air Intake and Output 07/01/17 07/01/17 07/02/17 15:00 23:00 07:00 Intake Total 1040 ml 250 ml Output Total 951 ml Balance 89 ml 250 ml Exam General: Well developed, male, not in any acute distress . HEENT: Mild dysarthria+ Normocephalic, Atraumatic, No laceration or hematoma; Eyes: PEERL, Conjunctiva clear, Anicteric sclera Neck: Supple without any lymphadenopathy, nontender, no JVD, no carotid bruits, trachea midline, no thyromegaly Cardiac: S1, S2 auscultated, regular rhythm and rate, no mumurs or gallop Pulmonary: Normal respiratory effort. Chest clear to auscultation bilaterally, no adventitious breath sounds GI: Abdomen normal to inspection. Soft, non- distended, no masses, no rebound tenderness or guarding. Bowel sounds active on all four quadrants Genitourinary: Deferred Extremities: Right sided weakness+. No cyanosis, clubbing, or edema. Pulses [2+ ] bilaterally. Neurologic: Alert to person, place, time, and situation. Affect appropriate, intact sensation. Skin: Clean,dry, and intact. No ecchymosis, no rashes, or lesions Results Result Diagram: 06/30/17 0601 06/30/17 0601 Medications Medications Current Medications Aspirin (Aspirin) 81 mg DAILY PO Last administered on 07/02/17 08:36; Admin Dose 81 MG; Start 06/19/17 at 09:00 Atorvastatin Calcium (Lipitor) 80 mg DAILY@21 PO Last administered on 20:23; Admin Dose 80 MG; Start 06/18/17 at 21:00 Folic Acid (Folic Acid) 1 mg DAILY PO Last administered on 07/02/17 08:36; Admin Dose 1 MG; Start 06/19/17 at 09:00 Carvedilol (Coreg) 12.5 mg BID PO Last administered on 07/02/17 08:37; Admin Dose 12.5 MG; Start 06/18/17 at 21:00 Fish Oil (Fish Oil) 1,000 mg BID PO Last administered on 07/02/17 08:36; Admin Dose 1,000 MG; Start 06/18/17 at 21:00 Lactobacillus Acidophilus (Florajen3 Capsule) 1 each BID PO Last administered on 07/02/17 08:35; Admin Dose 1 EACH; Start 06/18/17 at 21:00 Docusate Sodium (Colace) 100 mg BID PO Last administered on 07/02/17 08:36; Admin Dose 100 MG; Start 06/19/17 at 21:00 Senna (Senokot) 1 tab DAILY PO Last administered on 07/02/17 08:35; Admin Dose 1 TAB; Start 06/20/17 at 09:00 Acetaminophen (Tylenol Tab) 650 mg Q4H PRN PO PAIN AND OR ELEVATED TEMP; Start 06/19/17 at 18:30 Bisacodyl (Dulcolax Supp) 10 mg DAILY PRN [place] CONSTIPATION; Start 06/19/17 at 18 :30 Magnesium Hydroxide (Milk Of Mag) 30 ml DAILY PRN PO CONSTIPATION; Start at 18:30 Lactulose (Enulose) 20 gm DAILY PRN PO CONSTIPATION Last administered on 09:09; Admin Dose 20 GM; Start 06/19/17 at 18:30 Amlodipine Besylate (Norvasc) 5 mg DAILY PO Last administered on 07/02/17 08: 37; Admin Dose 5 MG; Start 06/22/17 at 09:00 BRI THOMAS NP Jul 02, 2017 15:24
[2017-07-02 20:00] VITALS: BP 133/87; RESP 18
--- NOTE | 2017-07-02 20:18 | CONS ---
Date/Time of Note Date/Time of Note DATE: 07/02/17 TIME: 20:17 Assessment/Plan Assessment/Plan Additional Assessment/Plan 1. 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 h/o CKD due to HTN 3. Multiple Hemispheric Brainstem embolic infracts 4. Hypertension 5. pt has two episodes when his Creatinine bumped with addition of lisinopril Plan: -renal US negative for hydronephrosis -Cr bumped to 1,49 on Friday with addition of lisinopril,I stopped lisinopril on 06/28/17- Now cr slightly improved to 1.37 on 06/30/17 continue only amlodipine, use hydralzine prn no need for ACEI/ARB on discharge will follow up Consultation Date/Type/Reason Admit Date/Time Jun 18, 2017 at 14:17 Initial Consult Date 06/19/17 Type of Consultation: NEPHROLOGY Referring Provider: [facility] RILEY MD[facility] Exam/Review of Systems Vital Signs Vitals Vital Signs Date Time Temp Pulse Resp B/P Pulse Ox O2 Delivery O2 Flow Rate FiO2 07/02/17 08:00 98.6 68 18 125/95 96 07/01/17 07:05 Room Air Intake and Output 07/01/17 07/01/17 07/02/17 15:00 23:00 07:00 Intake Total 1040 ml 250 ml Output Total 951 ml Balance 89 ml 250 ml Results Result Diagram: 06/30/17 0601 06/30/17 0601 Medications Medications Current Medications Aspirin (Aspirin) 81 mg DAILY PO Last administered on 07/02/17 08:36; Admin Dose 81 MG; Start 06/19/17 at 09:00 Atorvastatin Calcium (Lipitor) 80 mg DAILY@21 PO Last administered on 20:23; Admin Dose 80 MG; Start 06/18/17 at 21:00 Folic Acid (Folic Acid) 1 mg DAILY PO Last administered on 07/02/17 08:36; Admin Dose 1 MG; Start 06/19/17 at 09:00 Carvedilol (Coreg) 12.5 mg BID PO Last administered on 07/02/17 08:37; Admin Dose 12.5 MG; Start 06/18/17 at 21:00 Fish Oil (Fish Oil) 1,000 mg BID PO Last administered on 07/02/17 08:36; Admin Dose 1,000 MG; Start 06/18/17 at 21:00 Lactobacillus Acidophilus (Florajen3 Capsule) 1 each BID PO Last administered on 07/02/17 08:35; Admin Dose 1 EACH; Start 06/18/17 at 21:00 Docusate Sodium (Colace) 100 mg BID PO Last administered on 07/02/17 08:36; Admin Dose 100 MG; Start 06/19/17 at 21:00 Senna (Senokot) 1 tab DAILY PO Last administered on 07/02/17 08:35; Admin Dose 1 TAB; Start 06/20/17 at 09:00 Acetaminophen (Tylenol Tab) 650 mg Q4H PRN PO PAIN AND OR ELEVATED TEMP; Start 06/19/17 at 18:30 Bisacodyl (Dulcolax Supp) 10 mg DAILY PRN [place] CONSTIPATION; Start 06/19/17 at 18 :30 Magnesium Hydroxide (Milk Of Mag) 30 ml DAILY PRN [place] CONSTIPATION; Start at 18:30 Lactulose (Enulose) 20 gm DAILY PRN [place] CONSTIPATION Last administered on 09:09; Admin Dose 20 GM; Start 06/19/17 at 18:30 Amlodipine Besylate (Norvasc) 5 mg DAILY PO Last administered on 07/02/17 08: 37; Admin Dose 5 MG; Start 06/22/17 at 09:00 TEGAN ALVAREZ MD Jul 02, 2017 20:18
[2017-07-02] MEDS: ATORVASTATIN 80 MG TAB PO SCH (20:55)
[2017-07-03 03:20] VITALS: BP 127/78; RESP 18
[2017-07-03 07:30] VITALS: BP 156/100; RESP 20
[2017-07-03] MEDS: L ACIDOPHIL/B LACTIS/B LONGUM CAPSULE PO SCH ×2 (08:27→20:52)
[2017-07-03] MEDS: SENNA TAB PO SCH (08:29)
[2017-07-03] MEDS: FISH OIL 1,000 MG CAP PO SCH ×2 (08:29→20:51)
[2017-07-03] MEDS: ASPIRIN 81 MG TAB PO SCH (08:29)
[2017-07-03] MEDS: DOCUSATE SODIUM 100 MG CAP PO SCH ×2 (08:29→20:52)
[2017-07-03] MEDS: FOLIC ACID 1 MG TAB PO SCH (08:29)
[2017-07-03] MEDS: AMLODIPINE 5 MG TAB PO SCH (08:31)
--- NOTE | 2017-07-03 11:34 | CONS ---
Date/Time of Note Date/Time of Note DATE: 07/03/17 TIME: 11:31 Consult Date/Type/Reason Admit Date/Time Jun 18, 2017 at 14:17 Initial Consult Date 06/19/17 Type of Consultation: NEPHROLOGY Ordering Provider: [facility], [facility] Subjective No new complaints Objective pulm-cta sba ambulation Vital Signs Date Time Temp Pulse Resp B/P Pulse Ox O2 Delivery O2 Flow Rate FiO2 07/03/17 07:30 98.6 65 20 156/100 97 07/01/17 07:05 Room Air Intake and Output 07/02/17 07/02/17 07/03/17 15:00 23:00 07:00 Intake Total 720 ml 600 ml 750 ml Output Total 400 ml Balance 720 ml 600 ml 350 ml Results/Medications Result Diagram: 06/30/17 0601 06/30/17 0601 Medications Current Medications Aspirin (Aspirin) 81 mg DAILY PO Last administered on 07/03/17 08:29; Admin Dose 81 MG; Start 06/19/17 at 09:00 Atorvastatin Calcium (Lipitor) 80 mg DAILY@21 PO Last administered on 20:55; Admin Dose 80 MG; Start 06/18/17 at 21:00 Folic Acid (Folic Acid) 1 mg DAILY PO Last administered on 07/03/17 08:29; Admin Dose 1 MG; Start 06/19/17 at 09:00 Carvedilol (Coreg) 12.5 mg BID PO Last administered on 07/03/17 08:30; Admin Dose 12.5 MG; Start 06/18/17 at 21:00 Fish Oil (Fish Oil) 1,000 mg BID PO Last administered on 07/03/17 08:29; Admin Dose 1,000 MG; Start 06/18/17 at 21:00 Lactobacillus Acidophilus (Florajen3 Capsule) 1 each BID PO Last administered on 07/03/17 08:27; Admin Dose 1 EACH; Start 06/18/17 at 21:00 Docusate Sodium (Colace) 100 mg BID PO Last administered on 07/03/17 08:29; Admin Dose 100 MG; Start 06/19/17 at 21:00 Senna (Senokot) 1 tab DAILY PO Last administered on 07/03/17 08:29; Admin Dose 1 TAB; Start 06/20/17 at 09:00 Acetaminophen (Tylenol Tab) 650 mg Q4H PRN PO PAIN AND OR ELEVATED TEMP; Start 06/19/17 at 18:30 Bisacodyl (Dulcolax Supp) 10 mg DAILY PRN [place] CONSTIPATION; Start 06/19/17 at 18 :30 Magnesium Hydroxide (Milk Of Mag) 30 ml DAILY PRN [place] CONSTIPATION; Start at 18:30 Lactulose (Enulose) 20 gm DAILY PRN PO CONSTIPATION Last administered on 09:09; Admin Dose 20 GM; Start 06/19/17 at 18:30 Amlodipine Besylate (Norvasc) 5 mg DAILY PO Last administered on 07/03/17 08: 31; Admin Dose 5 MG; Start 06/22/17 at 09:00 Assessment/Plan Additional Assessment/Plan Rehab- CVA with right-sided weakness. Continue rehab activities Hypertension. Hyperlipidemia. Hyponatremia. Dysphagia. History of hepatitis B. Acute on chronic kidney disease. TYRON HARMON MD Jul 03, 2017 11:34
--- NOTE | 2017-07-03 13:20 | PN ---
Date/Time of Note Date/Time of Note DATE: 07/03/17 TIME: 13:19 Assessment/Plan VTE Prophylaxis VTE Prophylaxis Intervention: ambulation Lines/Catheters Urinary Cath still in place: No Assessment/Plan Chief Complaint/Hosp Course 1. SHERLY on CKD. -Nephro eval appreciated and recommended no further GARETH inhibitors. -Monitor renal fxn closely and avoid nephrotoxins. 2. Brainstem CVA with right sided weakens/numbness. -continue with PT/OT. -Continue ASA,Statin and antihypertensives. 3. HTN. Stable. -Continue antihypertensives. Patient was seen in collaboration with DR. Garcia. Problems: Subjective 24 Hr Interval Summary Free Text/Dictation Ambulating with FWW. Doing well. Exam/Review of Systems Vital Signs Vitals Vital Signs Date Time Temp Pulse Resp B/P Pulse Ox O2 Delivery O2 Flow Rate FiO2 07/03/17 07:30 98.6 65 20 156/100 97 07/01/17 07:05 Room Air Intake and Output 07/02/17 07/02/17 07/03/17 14:59 22:59 06:59 Intake Total 720 ml 600 ml 750 ml Output Total 400 ml Balance 720 ml 600 ml 350 ml Exam General: Well developed, male, not in any acute distress . HEENT: Mild dysarthria+ Normocephalic, Atraumatic, No laceration or hematoma; Eyes: PEERL, Conjunctiva clear, Anicteric sclera Neck: Supple without any lymphadenopathy, nontender, no JVD, no carotid bruits, trachea midline, no thyromegaly Cardiac: S1, S2 auscultated, regular rhythm and rate, no mumurs or gallop Pulmonary: Normal respiratory effort. Chest clear to auscultation bilaterally, no adventitious breath sounds GI: Abdomen normal to inspection. Soft, non- distended, no masses, no rebound tenderness or guarding. Bowel sounds active on all four quadrants Genitourinary: Deferred Extremities: Right sided weakness+. No cyanosis, clubbing, or edema. Pulses [2+ ] bilaterally. Neurologic: Alert to person, place, time, and situation. Affect appropriate, intact sensation. Skin: Clean,dry, and intact. No ecchymosis, no rashes, or lesions Results Result Diagram: 06/30/17 0606/30/17 06 Medications Medications Current Medications Aspirin (Aspirin) 81 mg DAILY PO Last administered on 07/03/17 08:29; Admin Dose 81 MG; Start 06/19/17 at 09:00 Atorvastatin Calcium (Lipitor) 80 mg DAILY@21 PO Last administered on 20:55; Admin Dose 80 MG; Start 06/18/17 at 21:00 Folic Acid (Folic Acid) 1 mg DAILY PO Last administered on 07/03/17 08:29; Admin Dose 1 MG; Start 06/19/17 at 09:00 Carvedilol (Coreg) 12.5 mg BID PO Last administered on 07/03/17 08:30; Admin Dose 12.5 MG; Start 06/18/17 at 21:00 Fish Oil (Fish Oil) 1,000 mg BID PO Last administered on 07/03/17 08:29; Admin Dose 1,000 MG; Start 06/18/17 at 21:00 Lactobacillus Acidophilus (Florajen3 Capsule) 1 each BID PO Last administered on 07/03/17 08:27; Admin Dose 1 EACH; Start 06/18/17 at 21:00 Docusate Sodium (Colace) 100 mg BID PO Last administered on 07/03/17 08:29; Admin Dose 100 MG; Start 06/19/17 at 21:00 Senna (Senokot) 1 tab DAILY PO Last administered on 07/03/17 08:29; Admin Dose 1 TAB; Start 06/20/17 at 09:00 Acetaminophen (Tylenol Tab) 650 mg Q4H PRN PO PAIN AND OR ELEVATED TEMP; Start 06/19/17 at 18:30 Bisacodyl (Dulcolax Supp) 10 mg DAILY PRN [place]; Start 06/19/17 at 18 :30 Magnesium Hydroxide (Milk Of Mag) 30 ml DAILY PRN PO CONSTIPATION; Start at 18:30 Lactulose (Enulose) 20 gm DAILY PRN PO CONSTIPATION Last administered on 09:09; Admin Dose 20 GM; Start 06/19/17 at 18:30 Amlodipine Besylate (Norvasc) 5 mg DAILY PO Last administered on 07/03/17 08: 31; Admin Dose 5 MG; Start 06/22/17 at 09:00 BRI THOMAS NP Jul 03, 2017 13:20
[2017-07-03 14:00] VITALS: BP 127/68; RESP 20
[2017-07-03 19:24] VITALS: BP 155/65; RESP 19
[2017-07-03] MEDS: ATORVASTATIN 80 MG TAB PO SCH (20:52)
--- NOTE | 2017-07-03 21:27 | CONS ---
Date/Time of Note Date/Time of Note DATE: 07/03/17 TIME: 21:25 Assessment/Plan Assessment/Plan Additional Assessment/Plan 1. 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 h/o CKD due to HTN 3. Multiple Hemispheric Brainstem embolic infracts 4. Hypertension 5. pt has two episodes when his Creatinine bumped with addition of lisinopril Plan: -renal US negative for hydronephrosis -Cr bumped to 1,49 on Friday with addition of lisinopril,I stopped lisinopril on 06/28/17- Now cr slightly improved to 1.37 on 06/30/17- AM labs BMP ordered continue only amlodipine, use hydralzine prn no need for ACEI/ARB on discharge will follow up Consultation Date/Type/Reason Admit Date/Time Jun 18, 2017 at 14:17 Initial Consult Date 06/19/17 Type of Consultation: NEPHROLOGY Referring Provider: 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 Skin: nl turgor Lymph: nl lymph nodes Results Result Diagram: 06/30/17 0601 06/30/17 0601 Medications Medications Current Medications Aspirin (Aspirin) 81 mg DAILY PO Last administered on 07/03/17 08:29; Admin Dose 81 MG; Start 06/19/17 at 09:00 Atorvastatin Calcium (Lipitor) 80 mg DAILY@21 PO Last administered on 20:52; Admin Dose 80 MG; Start 06/18/17 at 21:00 Folic Acid (Folic Acid) 1 mg DAILY PO Last administered on 07/03/17 08:29; Admin Dose 1 MG; Start 06/19/17 at 09:00 Carvedilol (Coreg) 12.5 mg BID PO Last administered on 07/03/17 20:52; Admin Dose 12.5 MG; Start 06/18/17 at 21:00 Fish Oil (Fish Oil) 1,000 mg BID PO Last administered on 07/03/17 20:51; Admin Dose 1,000 MG; Start 06/18/17 at 21:00 Lactobacillus Acidophilus (Florajen3 Capsule) 1 each BID PO Last administered on 07/03/17 20:52; Admin Dose 1 EACH; Start 06/18/17 at 21:00 Docusate Sodium (Colace) 100 mg BID PO Last administered on 07/03/17 20:52; Admin Dose 100 MG; Start 06/19/17 at 21:00 Senna (Senokot) 1 tab DAILY PO Last administered on 07/03/17 08:29; Admin Dose 1 TAB; Start 06/20/17 at 09:00 Acetaminophen (Tylenol Tab) 650 mg Q4H PRN PO PAIN AND OR ELEVATED TEMP; Start 06/19/17 at 18:30 Bisacodyl (Dulcolax Supp) 10 mg DAILY PRN [place]; Start 06/19/17 at 18 :30 Magnesium Hydroxide (Milk Of Mag) 30 ml DAILY PRN PO CONSTIPATION; Start at 18:30 Lactulose (Enulose) 20 gm DAILY PRN PO CONSTIPATION Last administered on 09:09; Admin Dose 20 GM; Start 06/19/17 at 18:30 Amlodipine Besylate (Norvasc) 5 mg DAILY PO Last administered on 07/03/17 08: 31; Admin Dose 5 MG; Start 06/22/17 at 09:00 TEGAN ALVAREZ MD Jul 03, 2017 21:27
[2017-07-04 02:00] VITALS: BP 128/82; RESP 20
[2017-07-04 08:02] LABS: CALCIUM 8.8 mg/dl (8.4-10.2); CREATININE 1.29 mg/dl (0.61-1.24); POTASSIUM 3.4 mmol/L (3.5-5.1)
[2017-07-04] MEDS: FISH OIL 1,000 MG CAP PO SCH ×2 (08:45→20:48)
[2017-07-04] MEDS: DOCUSATE SODIUM 100 MG CAP PO SCH ×2 (08:45→20:47)
[2017-07-04] MEDS: AMLODIPINE 5 MG TAB PO SCH (08:45)
[2017-07-04] MEDS: SENNA TAB PO SCH (08:45)
[2017-07-04] MEDS: ASPIRIN 81 MG TAB PO SCH (08:45)
[2017-07-04] MEDS: FOLIC ACID 1 MG TAB PO SCH (08:46)
[2017-07-04 08:47] VITALS: BP 142/90; RESP 18
[2017-07-04] MEDS: L ACIDOPHIL/B LACTIS/B LONGUM CAPSULE PO SCH ×2 (08:47→21:00)
--- NOTE | 2017-07-04 13:40 | CONS ---
Date/Time of Note Date/Time of Note DATE: 07/04/17 TIME: 13:40 Consult Date/Type/Reason Admit Date/Time Jun 18, 2017 at 14:17 Initial Consult Date 06/19/17 Type of Consultation: NEPHROLOGY Ordering Provider: BRIAN RILEY MD, [facility] Subjective Comfortable. reports he would like call buttons answered faster Objective pulm-ta sba ambulation Vital Signs Date Time Temp Pulse Resp B/P Pulse Ox O2 Delivery O2 Flow Rate FiO2 07/04/17 08:47 98.4 65 18 142/90 97 07/01/17 07:05 Room Air Intake and Output 07/03/17 07/03/17 07/04/17 15:00 23:00 07:00 Intake Total 1140 ml Balance 1140 ml Results/Medications Result Diagram: 06/30/17 0601 07/04/17 0615 Results 24 hrs Laboratory Tests Test 07/04/17 06:15 Sodium Level 141 Potassium Level 3.4 L Chloride Level 110 Carbon Dioxide Level 23 Anion Gap 11 Blood Urea Nitrogen 11 Creatinine 1.29 H Glucose Level 89 Calcium Level 8.8 Medications Current Medications Aspirin (Aspirin) 81 mg DAILY PO Last administered on 07/04/17 08:45; Admin Dose 81 MG; Start 06/19/17 at 09:00 Atorvastatin Calcium (Lipitor) 80 mg DAILY@21 PO Last administered on 20:52; Admin Dose 80 MG; Start 06/18/17 at 21:00 Folic Acid (Folic Acid) 1 mg DAILY PO Last administered on 07/04/17 08:46; Admin Dose 1 MG; Start 06/19/17 at 09:00 Carvedilol (Coreg) 12.5 mg BID PO Last administered on 07/04/17 08:46; Admin Dose 12.5 MG; Start 06/18/17 at 21:00 Fish Oil (Fish Oil) 1,000 mg BID PO Last administered on 07/04/17 08:45; Admin Dose 1,000 MG; Start 06/18/17 at 21:00 Lactobacillus Acidophilus (Florajen3 Capsule) 1 each BID PO Last administered on 07/04/17 08:47; Admin Dose 1 EACH; Start 06/18/17 at 21:00 Docusate Sodium (Colace) 100 mg BID PO Last administered on 07/04/17 08:45; Admin Dose 100 MG; Start 06/19/17 at 21:00 Senna (Senokot) 1 tab DAILY PO Last administered on 07/04/17 08:45; Admin Dose 1 TAB; Start 06/20/17 at 09:00 Acetaminophen (Tylenol Tab) 650 mg Q4H PRN PO PAIN AND OR ELEVATED TEMP; Start 06/19/17 at 18:30 Bisacodyl (Dulcolax Supp) 10 mg DAILY PRN [place] CONSTIPATION; Start 06/19/17 at 18 :30 Magnesium Hydroxide (Milk Of Mag) 30 ml DAILY PRN PO CONSTIPATION; Start at 18:30 Lactulose (Enulose) 20 gm DAILY PRN PO CONSTIPATION Last administered on 09:09; Admin Dose 20 GM; Start 06/19/17 at 18:30 Amlodipine Besylate (Norvasc) 5 mg DAILY PO Last administered on 07/04/17 08: 45; Admin Dose 5 MG; Start 06/22/17 at 09:00 Assessment/Plan Additional Assessment/Plan Rehab- CVA with right-sided weakness. Continue rehab program Hypertension. Hyperlipidemia. Hyponatremia. Dysphagia. History of hepatitis B. Acute on chronic kidney disease. TYRON HARMON MD Jul 04, 2017 13:40
--- NOTE | 2017-07-04 14:08 | CONS ---
Date/Time of Note Date/Time of Note DATE: 07/04/17 TIME: 14:08 Assessment/Plan Assessment/Plan Chief Complaint/Hosp Course 1. SHERLY on CKD. -Nephro eval appreciated and recommended no further GARETH inhibitors. -Monitor renal fxn closely and avoid nephrotoxins. 2. Brainstem CVA with right sided weakens/numbness. -continue with PT/OT. -Continue ASA,Statin and antihypertensives. 3. HTN. Stable. -Continue antihypertensives. Patient was seen in collaboration with DR. Riley. Problems: Consultation Date/Type/Reason Admit Date/Time Jun 18, 2017 at 14:17 Initial Consult Date 06/19/17 Type of Consultation: NEPHROLOGY Referring Provider: BRIAN RILEY MD, [facility] 24 HR Interval Summary Free Text/Dictation Doing well. Exam/Review of Systems Vital Signs Vitals Vital Signs Date Time Temp Pulse Resp B/P Pulse Ox O2 Delivery O2 Flow Rate FiO2 07/04/17 08:47 98.4 65 18 142/90 97 07/01/17 07:05 Room Air Intake and Output 07/03/17 07/03/17 07/04/17 15:00 23:00 07:00 Intake Total 1140 ml Balance 1140 ml Exam General: Well developed, male, not in any acute distress . HEENT: Mild dysarthria+ Normocephalic, Atraumatic, No laceration or hematoma; Eyes: PEERL, Conjunctiva clear, Anicteric sclera Neck: Supple without any lymphadenopathy, nontender, no JVD, no carotid bruits, trachea midline, no thyromegaly Cardiac: S1, S2 auscultated, regular rhythm and rate, no mumurs or gallop Pulmonary: Normal respiratory effort. Chest clear to auscultation bilaterally, no adventitious breath sounds GI: Abdomen normal to inspection. Soft, non- distended, no masses, no rebound tenderness or guarding. Bowel sounds active on all four quadrants Genitourinary: Deferred Extremities: Right sided weakness+. No cyanosis, clubbing, or edema. Pulses [2+ ] bilaterally. Neurologic: Alert to person, place, time, and situation. Affect appropriate, intact sensation. Skin: Clean,dry, and intact. No ecchymosis, no rashes, or lesions Results Result Diagram: 06/30/17 0601 07/04/17 0615 Results 24 hrs Laboratory Tests Test 07/04/17 06:15 Sodium Level 141 Potassium Level 3.4 L Chloride Level 110 Carbon Dioxide Level 23 Anion Gap 11 Blood Urea Nitrogen 11 Creatinine 1.29 H Glucose Level 89 Calcium Level 8.8 Medications Medications Current Medications Aspirin (Aspirin) 81 mg DAILY PO Last administered on 07/04/17 08:45; Admin Dose 81 MG; Start 06/19/17 at 09:00 Atorvastatin Calcium (Lipitor) 80 mg DAILY@21 PO Last administered on 20:52; Admin Dose 80 MG; Start 06/18/17 at 21:00 Folic Acid (Folic Acid) 1 mg DAILY PO Last administered on 07/04/17 08:46; Admin Dose 1 MG; Start 06/19/17 at 09:00 Carvedilol (Coreg) 12.5 mg BID PO Last administered on 07/04/17 08:46; Admin Dose 12.5 MG; Start 06/18/17 at 21:00 Fish Oil (Fish Oil) 1,000 mg BID PO Last administered on 07/04/17 08:45; Admin Dose 1,000 MG; Start 06/18/17 at 21:00 Lactobacillus Acidophilus (Florajen3 Capsule) 1 each BID PO Last administered on 07/04/17 08:47; Admin Dose 1 EACH; Start 06/18/17 at 21:00 Docusate Sodium (Colace) 100 mg BID PO Last administered on 07/04/17 08:45; Admin Dose 100 MG; Start 06/19/17 at 21:00 Senna (Senokot) 1 tab DAILY PO Last administered on 07/04/17 08:45; Admin Dose 1 TAB; Start 06/20/17 at 09:00 Acetaminophen (Tylenol Tab) 650 mg Q4H PRN PO PAIN AND OR ELEVATED TEMP; Start 06/19/17 at 18:30 Bisacodyl (Dulcolax Supp) 10 mg DAILY PRN [place] CONSTIPATION; Start 06/19/17 at 18 :30 Magnesium Hydroxide (Milk Of Mag) 30 ml DAILY PRN PO CONSTIPATION; Start at 18:30 Lactulose (Enulose) 20 gm DAILY PRN PO CONSTIPATION Last administered on 09:09; Admin Dose 20 GM; Start 06/19/17 at 18:30 Amlodipine Besylate (Norvasc) 5 mg DAILY PO Last administered on 07/04/17t 08: 45; Admin Dose 5 MG; Start 06/22/17 at 09:00 BRI THOMAS NP Jul 04, 2017 14:08
[2017-07-04] MEDS: LACTULOSE 30ML CUP PO PRN (17:37)
[2017-07-04] MEDS ORDERED: POTASSIUM CHLORIDE (SR) 20 MEQ TAB PO STA (18:11)
--- NOTE | 2017-07-04 18:13 | CONS ---
Date/Time of Note Date/Time of Note DATE: 07/04/17 TIME: 18:11 Assessment/Plan Assessment/Plan Additional Assessment/Plan 1. 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 h/o CKD due to HTN 3. Multiple Hemispheric Brainstem embolic infracts 4. Hypertension 5. pt has two episodes when his Creatinine bumped with addition of lisinopril Plan: -renal US negative for hydronephrosis -Cr bumped to 1,49 previiously with addition of lisinopril,I stopped lisinopril on 06/28/17- Now cr slightly improved to 1.2 on 07/04/17, KCl 40MEQ pO x 1 dose now for hypokalemia continue only amlodipine, use hydralzine prn no need for ACEI/ARB on discharge will follow up Consultation Date/Type/Reason Admit Date/Time Jun 18, 2017 at 14:17 Initial Consult Date 06/19/17 Type of Consultation: NEPHROLOGY Referring Provider: BRIAN RILEY MD, [facility] 24 HR Interval Summary Free Text/Dictation Cr improved to 1.2, K low , BP stable Exam/Review of Systems Vital Signs Vitals Vital Signs Date Time Temp Pulse Resp B/P Pulse Ox O2 Delivery O2 Flow Rate FiO2 07/04/17 08:47 98.4 65 18 142/90 97 07/01/17 07:05 Room Air Intake and Output 07/03/17 07/03/17 07/04/17 15:00 23:00 07:00 Intake Total 1140 ml Balance 1140 ml Exam Constitutional: alert Respiratory: clear to auscultation, diminished breath sounds, normal air movement Cardiovascular: nl pulses, regular rate and rhythm Gastrointestinal: non-tender, soft Neurological: 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 Skin: nl turgor Lymph: nl lymph nodes Results Result Diagram: 06/30/17 0601 07/04/17 0615 Results 24 hrs Laboratory Tests Test 07/04/17 06:15 Sodium Level 141 Potassium Level 3.4 L Chloride Level 110 Carbon Dioxide Level 23 Anion Gap 11 Blood Urea Nitrogen 11 Creatinine 1.29 H Glucose Level 89 Calcium Level 8.8 Medications Medications Current Medications Aspirin (Aspirin) 81 mg DAILY PO Last administered on 07/04/17t 08:45; Admin Dose 81 MG; Start 06/19/17 at 09:00 Atorvastatin Calcium (Lipitor) 80 mg DAILY@21 PO Last administered on 20:52; Admin Dose 80 MG; Start 06/18/17 at 21:00 Folic Acid (Folic Acid) 1 mg DAILY PO Last administered on 07/04/17 08:46; Admin Dose 1 MG; Start 06/19/17 at 09:00 Carvedilol (Coreg) 12.5 mg BID PO Last administered on 07/04/17 08:46; Admin Dose 12.5 MG; Start 06/18/17 at 21:00 Fish Oil (Fish Oil) 1,000 mg BID PO Last administered on 07/04/17 08:45; Admin Dose 1,000 MG; Start 06/18/17 at 21:00 Lactobacillus Acidophilus (Florajen3 Capsule) 1 each BID PO Last administered on 07/04/17 08:47; Admin Dose 1 EACH; Start 06/18/17 at 21:00 Docusate Sodium (Colace) 100 mg BID PO Last administered on 07/04/17 08:45; Admin Dose 100 MG; Start 06/19/17 at 21:00 Senna (Senokot) 1 tab DAILY PO Last administered on 07/04/17 08:45; Admin Dose 1 TAB; Start 06/20/17 at 09:00 Acetaminophen (Tylenol Tab) 650 mg Q4H PRN PO PAIN AND OR ELEVATED TEMP; Start 06/19/17 at 18:30 Bisacodyl (Dulcolax Supp) 10 mg DAILY PRN [place] CONSTIPATION; Start 06/19/17 at 18 :30 Magnesium Hydroxide (Milk Of Mag) 30 ml DAILY PRN PO CONSTIPATION; Start at 18:30 Lactulose (Enulose) 20 gm DAILY PRN PO CONSTIPATION Last administered on 17:37; Admin Dose 20 GM; Start 06/19/17 at 18:30 Amlodipine Besylate (Norvasc) 5 mg DAILY PO Last administered on 07/04/17 08: 45; Admin Dose 5 MG; Start 06/22/17 at 09:00 TEGAN ALVAREZ MD Jul 04, 2017 18:13
[2017-07-04 20:00] VITALS: BP 137/87; RESP 18
[2017-07-04] MEDS: ATORVASTATIN 80 MG TAB PO SCH (20:47)
[2017-07-05 02:00] VITALS: BP 128/78; RESP 18
[2017-07-05 07:30] VITALS: BP 141/84; RESP 18
[2017-07-05] MEDS: FOLIC ACID 1 MG TAB PO SCH (09:18)
[2017-07-05] MEDS: DOCUSATE SODIUM 100 MG CAP PO SCH ×2 (09:18→20:21)
[2017-07-05] MEDS: FISH OIL 1,000 MG CAP PO SCH ×2 (09:18→20:20)
[2017-07-05] MEDS: AMLODIPINE 5 MG TAB PO SCH (09:19)
[2017-07-05] MEDS: SENNA TAB PO SCH (09:19)
[2017-07-05] MEDS: ASPIRIN 81 MG TAB PO SCH (09:19)
[2017-07-05] MEDS: L ACIDOPHIL/B LACTIS/B LONGUM CAPSULE PO SCH ×2 (09:32→20:21)
--- NOTE | 2017-07-05 09:49 | CONS ---
Date/Time of Note Date/Time of Note DATE: 07/05/17 TIME: 09:49 Consult Date/Type/Reason Admit Date/Time Jun 18, 2017 at 14:17 Initial Consult Date 06/19/17 Type of Consultation: NEPHROLOGY Ordering Provider: BRIAN RILEY MD, [facility] Subjective In good spirits Objective pulm-cta sba ambulation Vital Signs Date Time Temp Pulse Resp B/P Pulse Ox O2 Delivery O2 Flow Rate FiO2 07/05/17 07:30 98.3 61 18 141/84 98 07/01/17 07:05 Room Air Intake and Output 07/04/17 07/04/17 07/05/17 15:00 23:00 07:00 Intake Total 240 ml 800 ml 1050 ml Output Total 602 ml Balance 240 ml 198 ml 1050 ml Results/Medications Result Diagram: 07/04/17 0615 Medications Current Medications Aspirin (Aspirin) 81 mg DAILY PO Last administered on 07/05/17 09:19; Admin Dose 81 MG; Start 06/19/17 at 09:00 Atorvastatin Calcium (Lipitor) 80 mg DAILY@21 PO Last administered on 20:47; Admin Dose 80 MG; Start 06/18/17 at 21:00 Folic Acid (Folic Acid) 1 mg DAILY PO Last administered on 07/05/17 09:18; Admin Dose 1 MG; Start 06/19/17 at 09:00 Carvedilol (Coreg) 12.5 mg BID PO Last administered on 07/05/17 09:20; Admin Dose 12.5 MG; Start 06/18/17 at 21:00 Fish Oil (Fish Oil) 1,000 mg BID PO Last administered on 07/05/17 09:18; Admin Dose 1,000 MG; Start 06/18/17 at 21:00 Lactobacillus Acidophilus (Florajen3 Capsule) 1 each BID PO Last administered on 07/05/17 09:32; Admin Dose 1 EACH; Start 06/18/17 at 21:00 Docusate Sodium (Colace) 100 mg BID PO Last administered on 07/05/17 09:18; Admin Dose 100 MG; Start 06/19/17 at 21:00 Senna (Senokot) 1 tab DAILY PO Last administered on 07/05/17 09:19; Admin Dose 1 TAB; Start 06/20/17 at 09:00 Acetaminophen (Tylenol Tab) 650 mg Q4H PRN PO PAIN AND OR ELEVATED TEMP; Start 06/19/17 at 18:30 Bisacodyl (Dulcolax Supp) 10 mg DAILY PRN [place] CONSTIPATION; Start 06/19/17 at 18 :30 Magnesium Hydroxide (Milk Of Mag) 30 ml DAILY PRN PO CONSTIPATION; Start at 18:30 Lactulose (Enulose) 20 gm DAILY PRN PO CONSTIPATION Last administered on 17:37; Admin Dose 20 GM; Start 06/19/17 at 18:30 Amlodipine Besylate (Norvasc) 5 mg DAILY PO Last administered on 07/05/17 09: 19; Admin Dose 5 MG; Start 06/22/17 at 09:00 Assessment/Plan Additional Assessment/Plan Rehab- CVA with right-sided weakness. Continue rehab treatment plan Hypertension. Hyperlipidemia. Hyponatremia. Dysphagia. History of hepatitis B. Acute on chronic kidney disease. TYRON HARMON MD Jul 05, 2017 09:49
[2017-07-05 14:00] VITALS: BP 134/84; RESP 20
--- NOTE | 2017-07-05 15:54 | CONS ---
Date/Time of Note Date/Time of Note DATE: 07/05/17 TIME: 15:51 Assessment/Plan Assessment/Plan Additional Assessment/Plan -Hypokalemia- resolved 1. 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 h/o CKD due to HTN 3. Multiple Hemispheric Brainstem embolic infracts 4. Hypertension 5. pt has two episodes when his Creatinine bumped with addition of lisinopril Plan: -renal US negative for hydronephrosis -Cr bumped to 1,49 previiously with addition of lisinopril,I stopped lisinopril on 06/28/17- cr improved to 1.1 on 07/05/17, - continue only amlodipine, use hydralzine prn - no need for ACEI/ARB on discharge - will follow up Plan of care ulises Treadwell Consultation Date/Type/Reason Admit Date/Time Jun 18, 2017 at 14:17 Initial Consult Date 06/19/17 Type of Consultation: NEPHROLOGY Referring Provider: BRIAN RILEY MD, [facility] 24 HR Interval Summary Free Text/Dictation sitting up in chair, doing well, Cr improved to 1.1, K low yesterday- was replaced, no labs today to review, BP stable- dw staff Constitutional: improved Detailed Summary Respiratory: no complaints Cardiovascular: no complaints Gastrointestinal: no complaints Genitourinary: no complaints Skin: no complaints Exam/Review of Systems Vital Signs Vitals Vital Signs Date Time Temp Pulse Resp B/P Pulse Ox O2 Delivery O2 Flow Rate FiO2 07/05/17 07:30 98.3 61 18 141/84 98 07/01/17 07:05 Room Air Intake and Output 07/04/17 07/04/17 07/05/17 15:00 23:00 07:00 Intake Total 240 ml 800 ml 1050 ml Output Total 602 ml Balance 240 ml 198 ml 1050 ml Exam Constitutional: alert, well developed Respiratory: clear to auscultation, normal air movement Cardiovascular: nl pulses, regular rate and rhythm Gastrointestinal: non-tender, soft Musculoskeletal: nl extremities to inspection Extremities: normal pulses Neurological: nl mental status, other (speech is less slurred) Results Result Diagram: 07/04/17 0615 Medications Medications Current Medications Aspirin (Aspirin) 81 mg DAILY PO Last administered on 07/05/17 09:19; Admin Dose 81 MG; Start 06/19/17 at 09:00 Atorvastatin Calcium (Lipitor) 80 mg DAILY@21 PO Last administered on 20:47; Admin Dose 80 MG; Start 06/18/17 at 21:00 Folic Acid (Folic Acid) 1 mg DAILY PO Last administered on 07/05/17 09:18; Admin Dose 1 MG; Start 06/19/17 at 09:00 Carvedilol (Coreg) 12.5 mg BID PO Last administered on 07/05/17 09:20; Admin Dose 12.5 MG; Start 06/18/17 at 21:00 Fish Oil (Fish Oil) 1,000 mg BID PO Last administered on 07/05/17 09:18; Admin Dose 1,000 MG; Start 06/18/17 at 21:00 Lactobacillus Acidophilus (Florajen3 Capsule) 1 each BID PO Last administered on 07/05/17 09:32; Admin Dose 1 EACH; Start 06/18/17 at 21:00 Docusate Sodium (Colace) 100 mg BID PO Last administered on 07/05/17 09:18; Admin Dose 100 MG; Start 06/19/17 at 21:00 Senna (Senokot) 1 tab DAILY PO Last administered on 07/05/17 09:19; Admin Dose 1 TAB; Start 06/20/17 at 09:00 Acetaminophen (Tylenol Tab) 650 mg Q4H PRN PO PAIN AND OR ELEVATED TEMP; Start 06/19/17 at 18:30 Bisacodyl (Dulcolax Supp) 10 mg DAILY PRN [place] CONSTIPATION; Start 06/19/17 at 18 :30 Magnesium Hydroxide (Milk Of Mag) 30 ml DAILY PRN PO CONSTIPATION; Start at 18:30 Lactulose (Enulose) 20 gm DAILY PRN PO CONSTIPATION Last administered on 17:37; Admin Dose 20 GM; Start 06/19/17 at 18:30 Amlodipine Besylate (Norvasc) 5 mg DAILY PO Last administered on 07/05/17 09: 19; Admin Dose 5 MG; Start 06/22/17 at 09:00 REANNA DENIS Jul 05, 2017 15:54
[2017-07-05 17:00] LABS: CALCIUM 8.8 mg/dl (8.4-10.2); CREATININE 1.19 mg/dl (0.61-1.24); POTASSIUM 3.6 mmol/L (3.5-5.1)
[2017-07-05 19:55] VITALS: BP 158/97; RESP 18
[2017-07-05] MEDS: ATORVASTATIN 80 MG TAB PO SCH (20:21)
[2017-07-06 02:28] VITALS: BP 126/85; RESP 18
[2017-07-06 07:00] VITALS: BP 146/88; RESP 18
[2017-07-06] MEDS: FISH OIL 1,000 MG CAP PO SCH ×2 (08:25→20:38)
[2017-07-06] MEDS: DOCUSATE SODIUM 100 MG CAP PO SCH ×2 (08:25→20:38)
[2017-07-06] MEDS: ASPIRIN 81 MG TAB PO SCH (08:26)
[2017-07-06] MEDS: L ACIDOPHIL/B LACTIS/B LONGUM CAPSULE PO SCH ×2 (08:26→20:40)
[2017-07-06] MEDS: SENNA TAB PO SCH (08:26)
[2017-07-06] MEDS: FOLIC ACID 1 MG TAB PO SCH (08:26)
[2017-07-06] MEDS: AMLODIPINE 5 MG TAB PO SCH (08:26)
--- NOTE | 2017-07-06 13:13 | CONS ---
Date/Time of Note Date/Time of Note DATE: 07/06/17 TIME: 13:10 Assessment/Plan Assessment/Plan Additional Assessment/Plan 1. 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 h/o CKD due to HTN 3. Multiple Hemispheric Brainstem embolic infracts 4. Hypertension 5. pt has two episodes when his Creatinine bumped with addition of lisinopril Plan: -renal US negative for hydronephrosis -Cr bumped to 1,49 previiously with addition of lisinopril,I stopped lisinopril on 06/28/17- Now cr slightly improved to 1.1 on 07/05/17 -continue only amlodipine, use hydralzine prn no need for ACEI/ARB on discharge will follow up Plan of care TORSTEN Pace/staff Consultation Date/Type/Reason Admit Date/Time Jun 18, 2017 at 14:17 Initial Consult Date 06/19/17 Type of Consultation: NEPHROLOGY Referring Provider: [facility]RIAN RILEY MD, [facility] HR Interval Summary Free Text/Dictation sitting up in chair- going to bed, speech is less slurred, doing well, Cr improved to 1.2, BP stable- dw staff Constitutional: improved Detailed Summary Respiratory: no complaints Cardiovascular: no complaints Gastrointestinal: no complaints Genitourinary: no complaints Musculoskeletal: no complaints Skin: no complaints Exam/Review of Systems Vital Signs Vitals Vital Signs Date Time Temp Pulse Resp B/P Pulse Ox O2 Delivery O2 Flow Rate FiO2 07/06/17 07:00 98.4 64 18 146/88 93 Intake and Output 07/05/17 07/05/17 07/06/17 15:00 23:00 07:00 Intake Total 820 ml 1050 ml Output Total 1 ml 350 ml Balance 819 ml 700 ml Exam Constitutional: alert, well developed Psych: nl mood/affect Respiratory: clear to auscultation Cardiovascular: nl pulses, regular rate and rhythm Gastrointestinal: non-tender, soft Musculoskeletal: nl extremities to inspection Results Result Diagram: 07/05/17 1624 Results 24 hrs Laboratory Tests Test 07/05/17 16:24 Sodium Level 140 Potassium Level 3.6 Chloride Level 110 Carbon Dioxide Level 22 Anion Gap 12 Blood Urea Nitrogen 13 Creatinine 1.19 Glucose Level 96 Calcium Level 8.8 Medications Medications Current Medications Aspirin (Aspirin) 81 mg DAILY PO Last administered on 07/06/17 08:26; Admin Dose 81 MG; Start 06/19/17 at 09:00 Atorvastatin Calcium (Lipitor) 80 mg DAILY@21 PO Last administered on 20:21; Admin Dose 80 MG; Start 06/18/17 at 21:00 Folic Acid (Folic Acid) 1 mg DAILY PO Last administered on 07/06/17 08:26; Admin Dose 1 MG; Start 06/19/17 at 09:00 Carvedilol (Coreg) 12.5 mg BID PO Last administered on 07/06/17 08:27; Admin Dose 12.5 MG; Start 06/18/17 at 21:00 Fish Oil (Fish Oil) 1,000 mg BID PO Last administered on 07/06/17 08:25; Admin Dose 1,000 MG; Start 06/18/17 at 21:00 Lactobacillus Acidophilus (Florajen3 Capsule) 1 each BID PO Last administered on 07/06/17 08:26; Admin Dose 1 EACH; Start 06/18/17 at 21:00 Docusate Sodium (Colace) 100 mg BID PO Last administered on 07/06/17 08:25; Admin Dose 100 MG; Start 06/19/17 at 21:00 Senna (Senokot) 1 tab DAILY PO Last administered on 07/06/17 08:26; Admin Dose 1 TAB; Start 06/20/17 at 09:00 Acetaminophen (Tylenol Tab) 650 mg Q4H PRN PO PAIN AND OR ELEVATED TEMP; Start 06/19/17 at 18:30 Bisacodyl (Dulcolax Supp) 10 mg DAILY PRN [place] CONSTIPATION; Start 06/19/17 at 18 :30 Magnesium Hydroxide (Milk Of Mag) 30 ml DAILY PRN PO CONSTIPATION; Start at 18:30 Lactulose (Enulose) 20 gm DAILY PRN PO CONSTIPATION Last administered on 17:37; Admin Dose 20 GM; Start 06/19/17 at 18:30 Amlodipine Besylate (Norvasc) 5 mg DAILY PO Last administered on 07/06/17 08: 26; Admin Dose 5 MG; Start 06/22/17 at 09:00 REANNA DENIS Jul 06, 2017 13:13
--- NOTE | 2017-07-06 15:56 | CONS ---
Date/Time of Note Date/Time of Note DATE: 07/06/17 TIME: 15:56 Consult Date/Type/Reason Admit Date/Time Jun 18, 2017 at 14:17 Initial Consult Date 06/19/17 Type of Consultation: Pulm Ordering Provider: BRIAN RILEY MD, [facility] Subjective No events. Objective Vital Signs Date Time Temp Pulse Resp B/P Pulse Ox O2 Delivery O2 Flow Rate FiO2 07/06/17 07:00 98.4 64 18 146/88 93 Intake and Output 07/05/17 07/05/17 07/06/17 15:00 23:00 07:00 Intake Total 820 ml 1050 ml Output Total 1 ml 350 ml Balance 819 ml 700 ml Exam HEENT: Neck supple; no JVD; no LAD CVS: RRR, S1 and S2 CHEST: Clear ABD: Soft, NT, + BS EXT: No c/c/e Results/Medications Result Diagram: 07/05/17 1624 Results 24 hrs Laboratory Tests Test 07/05/17 16:24 Sodium Level 140 Potassium Level 3.6 Chloride Level 110 Carbon Dioxide Level 22 Anion Gap 12 Blood Urea Nitrogen 13 Creatinine 1.19 Glucose Level 96 Calcium Level 8.8 Medications Current Medications Aspirin (Aspirin) 81 mg DAILY PO Last administered on 07/06/17 08:26; Admin Dose 81 MG; Start 06/19/17 at 09:00 Atorvastatin Calcium (Lipitor) 80 mg DAILY@21 PO Last administered on 20:21; Admin Dose 80 MG; Start 06/18/17 at 21:00 Folic Acid (Folic Acid) 1 mg DAILY PO Last administered on 07/06/17 08:26; Admin Dose 1 MG; Start 06/19/17 at 09:00 Carvedilol (Coreg) 12.5 mg BID PO Last administered on 07/06/17 08:27; Admin Dose 12.5 MG; Start 06/18/17 at 21:00 Fish Oil (Fish Oil) 1,000 mg BID PO Last administered on 07/06/17 08:25; Admin Dose 1,000 MG; Start 06/18/17 at 21:00 Lactobacillus Acidophilus (Florajen3 Capsule) 1 each BID PO Last administered on 07/06/17 08:26; Admin Dose 1 EACH; Start 06/18/17 at 21:00 Docusate Sodium (Colace) 100 mg BID PO Last administered on 07/06/17 08:25; Admin Dose 100 MG; Start 06/19/17 at 21:00 Senna (Senokot) 1 tab DAILY PO Last administered on 07/06/17 08:26; Admin Dose 1 TAB; Start 06/20/17 at 09:00 Acetaminophen (Tylenol Tab) 650 mg Q4H PRN PO PAIN AND OR ELEVATED TEMP; Start 06/19/17 at 18:30 Bisacodyl (Dulcolax Supp) 10 mg DAILY PRN [place] CONSTIPATION; Start 06/19/17 at 18 :30 Magnesium Hydroxide (Milk Of Mag) 30 ml DAILY PRN PO CONSTIPATION; Start at 18:30 Lactulose (Enulose) 20 gm DAILY PRN PO CONSTIPATION Last administered on 17:37; Admin Dose 20 GM; Start 06/19/17 at 18:30 Amlodipine Besylate (Norvasc) 5 mg DAILY PO Last administered on 07/06/17 08: 26; Admin Dose 5 MG; Start 06/22/17 at 09:00 Assessment/Plan Additional Assessment/Plan IMP: 1. SHERLY on CKD 2. s/p Brainstem CVA 3. HTN RECS: 1. BP well managed 2. Cont rehab efforts GUZMAN BOYER MD Jul 06, 2017 15:56
[2017-07-06 20:00] VITALS: BP_SYST 112; BP_SYST 137; BP_DIAS 57; BP_DIAS 86; RESP 18
[2017-07-06] MEDS: ATORVASTATIN 80 MG TAB PO SCH (20:39)
[2017-07-07 03:12] VITALS: BP 130/80; RESP 18
[2017-07-07 07:30] VITALS: BP 131/84; RESP 20
[2017-07-07 08:00] VITALS: BP 131/84; RESP 20
[2017-07-07] MEDS: L ACIDOPHIL/B LACTIS/B LONGUM CAPSULE PO SCH ×2 (09:00→20:51)
[2017-07-07] MEDS: FOLIC ACID 1 MG TAB PO SCH (09:26)
[2017-07-07] MEDS: FISH OIL 1,000 MG CAP PO SCH ×2 (09:26→20:50)
[2017-07-07] MEDS: DOCUSATE SODIUM 100 MG CAP PO SCH ×2 (09:26→20:50)
[2017-07-07] MEDS: ASPIRIN 81 MG TAB PO SCH (09:27)
[2017-07-07] MEDS: SENNA TAB PO SCH (09:27)
[2017-07-07] MEDS: AMLODIPINE 5 MG TAB PO SCH (09:27)
--- NOTE | 2017-07-07 12:06 | CONS ---
Date/Time of Note Date/Time of Note DATE: 07/07/17 TIME: 12:04 Consult Date/Type/Reason Admit Date/Time Jun 18, 2017 at 14:17 Initial Consult Date 06/19/17 Type of Consultation: Pulm Ordering Provider: [facility], [facility] Objective Vital Signs Date Time Temp Pulse Resp B/P Pulse Ox O2 Delivery O2 Flow Rate FiO2 07/07/17 07:30 98.5 70 20 131/84 97 07/06/17 20:00 Room Air Intake and Output 07/06/17 07/06/17 07/07/17 14:59 22:59 06:59 Intake Total 2320 ml 700 ml Output Total 600 ml 500 ml Balance 1720 ml 200 ml INTERDISCIPLINARY TEAM CONFERENCE BOWEL- Cont BLADDER-Cont SKIN- intact OT- DRESSING-sba BATHING-sba TOILETING-sba PT- BED MOBILITY-sba TRANSFERS-sba AMBULATION-sba [address] MOBILITY SPEECH- COGNITION-sba A/P- Interdisciplinary team conference held today. Please see interdisciplinary sheet. Working toward d.c. on 07/08 with post discharge follow up of physical therapy, occupational therapy. Results/Medications Result Diagram: 07/05/17 1624 Medications Current Medications Aspirin (Aspirin) 81 mg DAILY PO Last administered on 07/07/17 09:27; Admin Dose 81 MG; Start 06/19/17 at 09:00 Atorvastatin Calcium (Lipitor) 80 mg DAILY@21 PO Last administered on 20:39; Admin Dose 80 MG; Start 06/18/17 at 21:00 Folic Acid (Folic Acid) 1 mg DAILY PO Last administered on 07/07/17 09:26; Admin Dose 1 MG; Start 06/19/17 at 09:00 Carvedilol (Coreg) 12.5 mg BID PO Last administered on 07/07/17 09:26; Admin Dose 12.5 MG; Start 06/18/17 at 21:00 Fish Oil (Fish Oil) 1,000 mg BID PO Last administered on 07/07/17 09:26; Admin Dose 1,000 MG; Start 06/18/17 at 21:00 Lactobacillus Acidophilus (Florajen3 Capsule) 1 each BID PO Last administered on 07/06/17 20:40; Admin Dose 1 EACH; Start 06/18/17 at 21:00 Docusate Sodium (Colace) 100 mg BID PO Last administered on 07/07/17 09:26; Admin Dose 100 MG; Start 06/19/17 at 21:00 Senna (Senokot) 1 tab DAILY PO Last administered on 07/07/17 09:27; Admin Dose 1 TAB; Start 06/20/17 at 09:00 Acetaminophen (Tylenol Tab) 650 mg Q4H PRN PO PAIN AND OR ELEVATED TEMP; Start 06/19/17 at 18:30 Bisacodyl (Dulcolax Supp) 10 mg DAILY PRN [place] CONSTIPATION; Start 06/19/17 at 18 :30 Magnesium Hydroxide (Milk Of Mag) 30 ml DAILY PRN PO CONSTIPATION; Start at 18:30 Lactulose (Enulose) 20 gm DAILY PRN PO CONSTIPATION Last administered on 17:37; Admin Dose 20 GM; Start 06/19/17 at 18:30 Amlodipine Besylate (Norvasc) 5 mg DAILY PO Last administered on 07/07/17 09: 27; Admin Dose 5 MG; Start 06/22/17 at 09:00 TYRON HARMON MD Jul 07, 2017 12:06
[2017-07-07 14:00] VITALS: BP 143/88; RESP 20
[2017-07-07] MEDS ORDERED: ONDANSETRON 4 MG INJ IV PRN (14:30)
--- NOTE | 2017-07-07 15:54 | CONS ---
Date/Time of Note Date/Time of Note DATE: 07/07/17 TIME: 15:53 Assessment/Plan Assessment/Plan Chief Complaint/Hosp Course 1. SHERLY on CKD. -Nephro eval appreciated and recommended no further GARETH inhibitors. -Monitor renal fxn closely and avoid nephrotoxins. 2. Brainstem CVA with right sided weakens/numbness. -continue with PT/OT. -Continue ASA,Statin and antihypertensives. 3. HTN. Stable. -Continue antihypertensives. Plan for discharge in a.m. Patient was seen in collaboration with DR. Riley. Problems: Consultation Date/Type/Reason Admit Date/Time Jun 18, 2017 at 14:17 Initial Consult Date 06/19/17 Type of Consultation: Pulm Referring Provider: BRIAN RILEY MD, [facility] 24 HR Interval Summary Free Text/Dictation No acute overnight episodes. With good participation in rehab activities. Exam/Review of Systems Vital Signs Vitals Vital Signs Date Time Temp Pulse Resp B/P Pulse Ox O2 Delivery O2 Flow Rate FiO2 07/07/17 07:30 98.5 70 20 131/84 97 07/06/17 20:00 Room Air Intake and Output 07/06/17 07/06/17 07/07/17 14:59 22:59 06:59 Intake Total 2320 ml 700 ml Output Total 600 ml 500 ml Balance 1720 ml 200 ml Exam General: Well developed, male, not in any acute distress . HEENT: Mild dysarthria+ Normocephalic, Atraumatic, No laceration or hematoma; Eyes: PEERL, Conjunctiva clear, Anicteric sclera Neck: Supple without any lymphadenopathy, nontender, no JVD, no carotid bruits, trachea midline, no thyromegaly Cardiac: S1, S2 auscultated, regular rhythm and rate, no mumurs or gallop Pulmonary: Normal respiratory effort. Chest clear to auscultation bilaterally, no adventitious breath sounds GI: Abdomen normal to inspection. Soft, non- distended, no masses, no rebound tenderness or guarding. Bowel sounds active on all four quadrants Genitourinary: Deferred Extremities: Right sided weakness+. No cyanosis, clubbing, or edema. Pulses [2+ ] bilaterally. Neurologic: Alert to person, place, time, and situation. Affect appropriate, intact sensation. Skin: Clean,dry, and intact. No ecchymosis, no rashes, or lesions Results Result Diagram: 07/05/17 1624 Medications Medications Current Medications Aspirin (Aspirin) 81 mg DAILY PO Last administered on 07/07/17 09:27; Admin Dose 81 MG; Start 06/19/17 at 09:00 Atorvastatin Calcium (Lipitor) 80 mg DAILY@21 PO Last administered on 20:39; Admin Dose 80 MG; Start 06/18/17 at 21:00 Folic Acid (Folic Acid) 1 mg DAILY PO Last administered on 07/07/17 09:26; Admin Dose 1 MG; Start 06/19/17 at 09:00 Carvedilol (Coreg) 12.5 mg BID PO Last administered on 07/07/17 09:26; Admin Dose 12.5 MG; Start 06/18/17 at 21:00 Fish Oil (Fish Oil) 1,000 mg BID PO Last administered on 07/07/17 09:26; Admin Dose 1,000 MG; Start 06/18/17 at 21:00 Lactobacillus Acidophilus (Florajen3 Capsule) 1 each BID PO Last administered on 07/07/17 09:00; Admin Dose 1 EACH; Start 06/18/17 at 21:00 Docusate Sodium (Colace) 100 mg BID PO Last administered on 07/07/17 09:26; Admin Dose 100 MG; Start 06/19/17 at 21:00 Senna (Senokot) 1 tab DAILY PO Last administered on 07/07/17 09:27; Admin Dose 1 TAB; Start 06/20/17 at 09:00 Acetaminophen (Tylenol Tab) 650 mg Q4H PRN PO PAIN AND OR ELEVATED TEMP; Start 06/19/17 at 18:30 Bisacodyl (Dulcolax Supp) 10 mg DAILY PRN [place] CONSTIPATION; Start 06/19/17 at 18 :30 Magnesium Hydroxide (Milk Of Mag) 30 ml DAILY PRN PO CONSTIPATION; Start at 18:30 Lactulose (Enulose) 20 gm DAILY PRN PO CONSTIPATION Last administered on 17:37; Admin Dose 20 GM; Start 06/19/17 at 18:30 Amlodipine Besylate (Norvasc) 5 mg DAILY PO Last administered on 07/07/17 09: 27; Admin Dose 5 MG; Start 06/22/17 at 09:00 BRI THOMAS NP Jul 07, 2017 15:54
--- NOTE | 2017-07-07 17:51 | CONS ---
Date/Time of Note Date/Time of Note DATE: 07/07/17 TIME: 17:50 Assessment/Plan Assessment/Plan Additional Assessment/Plan 1. 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 h/o CKD due to HTN 3. Multiple Hemispheric Brainstem embolic infracts 4. Hypertension 5. pt has two episodes when his Creatinine bumped with addition of lisinopril Plan: -renal US negative for hydronephrosis -Cr bumped to 1,49 previiously with addition of lisinopril,I stopped lisinopril on 06/28/17- Now cr improved to 1.19 continue only amlodipine, use hydralzine prn no need for ACEI/ARB on discharge will follow up Consultation Date/Type/Reason Admit Date/Time Jun 18, 2017 at 14:17 Initial Consult Date 06/19/17 Type of Consultation: NEPHROLOGY Referring Provider: BRIAN RILEY MD, [facility] Exam/Review of Systems Vital Signs Vitals Vital Signs Date Time Temp Pulse Resp B/P Pulse Ox O2 Delivery O2 Flow Rate FiO2 07/07/17 14:00 98.7 73 20 143/88 96 07/07/17 08:00 Room Air Intake and Output 07/06/17 07/06/17 07/07/17 15:00 23:00 07:00 Intake Total 2320 ml 700 ml Output Total 600 ml 500 ml Balance 1720 ml 200 ml Exam Constitutional: alert Respiratory: clear to auscultation, diminished breath sounds, normal air movement Cardiovascular: nl pulses, regular rate and rhythm Gastrointestinal: non-tender, soft Neurological: [employer] II-XII intact Skin: nl turgor Lymph: nl lymph nodes Results Result Diagram: 07/05/17 1624 Medications Medications Current Medications Aspirin (Aspirin) 81 mg DAILY PO Last administered on 07/07/17 09:27; Admin Dose 81 MG; Start 06/19/17 at 09:00 Atorvastatin Calcium (Lipitor) 80 mg DAILY@21 PO Last administered on 20:39; Admin Dose 80 MG; Start 06/18/17 at 21:00 Folic Acid (Folic Acid) 1 mg DAILY PO Last administered on 07/07/17 09:26; Admin Dose 1 MG; Start 06/19/17 at 09:00 Carvedilol (Coreg) 12.5 mg BID PO Last administered on 07/07/17 09:26; Admin Dose 12.5 MG; Start 06/18/17 at 21:00 Fish Oil (Fish Oil) 1,000 mg BID PO Last administered on 07/07/17 09:26; Admin Dose 1,000 MG; Start 06/18/17 at 21:00 Lactobacillus Acidophilus (Florajen3 Capsule) 1 each BID PO Last administered on 07/07/17 09:00; Admin Dose 1 EACH; Start 06/18/17 at 21:00 Docusate Sodium (Colace) 100 mg BID PO Last administered on 07/07/17 09:26; Admin Dose 100 MG; Start 06/19/17 at 21:00 Senna (Senokot) 1 tab DAILY PO Last administered on 07/07/17 09:27; Admin Dose 1 TAB; Start 06/20/17 at 09:00 Acetaminophen (Tylenol Tab) 650 mg Q4H PRN PO PAIN AND OR ELEVATED TEMP; Start 06/19/17 at 18:30 Bisacodyl (Dulcolax Supp) 10 mg DAILY PRN [place] CONSTIPATION; Start 06/19/17 at 18 :30 Magnesium Hydroxide (Milk Of Mag) 30 ml DAILY PRN PO CONSTIPATION; Start at 18:30 Lactulose (Enulose) 20 gm DAILY PRN PO CONSTIPATION Last administered on 17:37; Admin Dose 20 GM; Start 06/19/17 at 18:30 Amlodipine Besylate (Norvasc) 5 mg DAILY PO Last administered on 07/07/17 09: 27; Admin Dose 5 MG; Start 06/22/17 at 09:00 TEGAN ALVAREZ MD Jul 07, 2017 17:51
[2017-07-07 20:00] VITALS: BP 142/93; RESP 18
[2017-07-07] MEDS: ATORVASTATIN 80 MG TAB PO SCH (20:51)
[2017-07-08 02:00] VITALS: BP 142/90; PULSE 66; RESP 16
[2017-07-08 07:05] VITALS: BP 146/74; PULSE 93; RESP 18
[2017-07-08] MEDS: FISH OIL 1,000 MG CAP PO SCH (08:40)
[2017-07-08] MEDS: DOCUSATE SODIUM 100 MG CAP PO SCH (08:41)
[2017-07-08] MEDS: ASPIRIN 81 MG TAB PO SCH (08:41)
[2017-07-08] MEDS: AMLODIPINE 5 MG TAB PO SCH (08:41)
[2017-07-08] MEDS: SENNA TAB PO SCH (08:41)
[2017-07-08] MEDS: FOLIC ACID 1 MG TAB PO SCH (08:41)
[2017-07-08] MEDS: L ACIDOPHIL/B LACTIS/B LONGUM CAPSULE PO SCH (09:19)
--- NOTE | 2017-07-08 12:11 | DS ---
Date/Time of Note Date/Time of Note DATE: 07/08/17 TIME: 12:11 Discharge Summary Admission/Discharge Info Admit Date/Time Jun 18, 2017 at 14:17 Discharge Date/Time Discharge Diagnosis Rehab- CVA with right-sided weakness. Hypertension. Hyperlipidemia. Hyponatremia. Dysphagia. History of hepatitis B. History of chronic kidney disease. Acute on Chronic kidney disease Improvements in self-care, mobility and cognition. Patient Condition: Good Hospital Course Patient admitted for interdisciplinary rehab and made excellent progress. He progressed from an initial mod erate assist, and progressed to a SBA level for self care and mobility. His caregiver did receive caregiver training, and family did have family conference. Patient is being discharged home with the rec of HH PT/OT and speech. DME re: FWW/BSC/ shower chair. Patient will f/u with his PMD upon dc. Home Meds Reported Medications Meclizine Hcl* (Meclizine Hcl*) 25 Mg Tablet, 25 MG PO TID, TAB 05/30/17 Atorvastatin* (Atorvastatin*) 80 Mg Tablet, 80 MG PO QHS, #30 TAB 05/30/17 Folic Acid* (Folic Acid*) 1 Mg Tablet, 1 MG PO DAILY, TAB 05/30/17 Aspirin (Aspirin) 81 Mg Chew, 81 MG PO DAILY, TAB.CHEW 05/30/17 Lisinopril* (Lisinopril*) 10 Mg Tablet, 10 MG PO DAILY, #30 TAB 05/30/17 Hydrochlorothiazide (Hydrochlorothiazide) 25 Mg Tablet, 25 MG PO DAILY, #30 TAB 05/30/17 Carvedilol* (Carvedilol*) 12.5 Mg Tablet, 12.5 MG PO BID, #60 TAB 05/30/17 Amlodipine Besylate* (Amlodipine Besylate*) 10 Mg Tablet, 10 MG PO DAILY, #30 TAB 05/30/17 [place]-3 Fatty Acids/Fish Oil (Fish Oil 1,000 mg Capsule) 1 Each Capsule, 1 EACH PO DAILY, CAP 05/30/17 Primary Care Provider Not On Staff Doctor TYRON HARMON MD Jul 08, 2017 12:11
--- NOTE | 2017-07-08 15:26 | CONS ---
Date/Time of Note Date/Time of Note DATE: 07/08/17 TIME: 15:25 Assessment/Plan Assessment/Plan Additional Assessment/Plan 1. 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 h/o CKD due to HTN 3. Multiple Hemispheric Brainstem embolic infracts 4. Hypertension 5. pt has two episodes when his Creatinine bumped with addition of lisinopril Plan: -renal US negative for hydronephrosis -Cr bumped to 1,49 previiously with addition of lisinopril,I stopped lisinopril on 06/28/17- Now cr improved to 1.19 continue only amlodipine, use hydralzine prn no need for ACEI/ARB on discharge will follow up Consultation Date/Type/Reason Admit Date/Time Jun 18, 2017 at 14:17 Initial Consult Date 06/19/17 Type of Consultation: NEPHROLOGY Referring Provider: BRIAN RILEY MD, [facility] 24 HR Interval Summary Free Text/Dictation stable, no compalints, BP stable, cr stable , see in early AM Exam/Review of Systems Vital Signs Vitals Vital Signs Date Time Temp Pulse Resp B/P Pulse Ox O2 Delivery O2 Flow Rate FiO2 07/08/17 07:05 98.2 93 18 146/74 100 Room Air Intake and Output 07/07/17 07/07/17 07/08/17 15:00 23:00 07:00 Intake Total 300 ml Output Total 750 ml Balance -450 ml Exam Constitutional: alert Respiratory: clear to auscultation, diminished breath sounds, normal air movement Cardiovascular: nl pulses, regular rate and rhythm Gastrointestinal: non-tender, soft Neurological: MASTER CHEF II-XII intact Skin: nl turgor Lymph: nl lymph nodes Results Result Diagram: 07/05/17 1624 TEGAN ALVAREZ MD Jul 08, 2017 15:26
== END 2017-07-08 14:00 | disposition home health service (06) | DRG 57 ==
LOC: VRC 14:17
PROVIDERS: ADMIT Physical Medicine & Rehabilitation; ATTEND Internal Medicine Pulmonary Disease
PROC: F07Z5ZZ Bed Mobility Treatment (ICD-10-PCS; principal; 2017-06-19)
PROC: F07Z8ZZ Transfer Training Treatment (ICD-10-PCS; 2017-06-19)
PROC: F07Z9ZZ Gait Training/Functional Ambulation Treatment (ICD-10-PCS; 2017-06-19)
PROC: F08Z2ZZ Grooming/Personal Hygiene Treatment (ICD-10-PCS; 2017-06-19)
PROC: F08Z0ZZ Bathing/Showering Techniques Treatment (ICD-10-PCS; 2017-06-19)
PROC: F06ZDZZ Swallowing Dysfunction Treatment (ICD-10-PCS; 2017-06-19)
PROC: F06Z6ZZ Communicative/Cognitive Integration Skills Treatment (ICD-10-PCS; 2017-06-19)
DX: I69.351 Hemiplegia and hemiparesis following cerebral infarction affecting right dominant side (principal); N17.9 Acute kidney failure, unspecified; N18.3 Chronic kidney disease, stage 3 (moderate); I12.9 Hypertensive chronic kidney disease with stage 1 through stage 4 chronic kidney disease, or unspecified chronic kidney disease; R13.10 Dysphagia, unspecified; E78.5 Hyperlipidemia, unspecified; N18.9 Chronic kidney disease, unspecified; E87.6 Hypokalemia; Z86.19 Personal history of other infectious and parasitic diseases
CPT/HCPCS: 70450; 74230; 76775; 80048; 80053; 81001; 83036; 84443; 85025; 85610; 85730; 87081; 87086; 92507; 92523; 92526; 92610; 92611; 97110; 97112; 97116; 97150; 97163; 97167; 97530; 97535

== ENCOUNTER → 2017-07-17 | Outpatient (CLI) | payer OTHER ==
[~2017-07-17] VITALS: Ht 172.7 cm; Wt 76.8 kg
[2017-07-17 15:32] VITALS: BP 98/65; PULSE 67; RESP 18; Ht 172.7 cm; Wt 76.8 kg
--- NOTE | 2017-07-17 15:47 | PN ---
Date/Time of Note Date/Time of Note DATE: 07/17/17 TIME: 15:37 Outpatient Progress Note Chief Complaint CVA/hypertension/hyperlipidemia/hepatitis B HPI CVA/patient has recently CVA, patient has history of multiple severe, patient denies at present difficulty in swallowing, minimal difficulty in walking, Patient has a right-sided upper and lower extremity weakness, no fall, no headache or syncope or seizure, slight dizziness, Hypertension/patient has a history of hypertension, at present blood pressure slightly on the lower side, on multiple medication, Hyperlipidemia/no xanthoma, on medication, Hepatitis B/no nausea vomiting or jaundice, Review of Systems Const: No Fever, no chills, no Wt. loss, no Fatigue, normal appetite, no diaphoresis. Eyes: No pain, no discharge, no redness, no visual change, no foreign body. ENT: No pain, no bleeding, no congestion, no sore throat, no dysphagia, no discharge or rhinitis. Lymph: No adenopathy, no tender nodes, no lymphedema. Resp: No SOB, no cough, no sputum, no wheezing, no chest pain. CV: No chest pain, no palpitaions, no MEDEIROS, no PND, no edema. GI: Normal appetite, no pain, no nausea, no vomiting, no diarrhea, no blood, no constipation. : No frequency, no urgency, no dysuria, no hematuria, no flank pain, no discharge, no bleeding. Musc: No back pain, no neck pain, no knee pain, no restricted ROM. Skin: No rash, no skin lesions, no erythema, no laceration, no bruising, no pruritus. Neuro: No AHN, slight dizziness, no syncope, no seizure, patient has right upper and lower extremity weakness, no fall, slight slurred speech, Endo: No polyuria, no polydypsia, no dry-skin, no temp-intolerance. Psych: No hallucinations, no depression, no anxiety, no suicidal ideation. Ext: No edema, no pain, no ulcer, right hemiplegia, Physical Exam Vital Signs Date Time Temp Pulse Resp B/P Pulse Ox O2 Delivery O2 Flow Rate FiO2 07/17/17 15:32 98.2 67 18 98/65 96 Room Air General Appearance: A 57 year-old male right-sided upper and lower extremity weakness, who appears well-developed, well-nourished, in no acute distress. HEENT: Head normocephalic, atraumatic. Pupils equal, round, reactive to light and accommodate. Sclerae are no jaundice. Nasal turbinates pink without erythema or nasal discharge. Mucous membranes pink and moist without lesions. Oropharynx clear without any exudate or discharge. NECK: Supple. Trachea midline, No thyromegaly, No cervical lymphadenopathy, No mass, No carotid bruits, No JVD, Carotid pulses 2+ bilaterally. PULMONARY: Clear to auscultaion bilaterally, No retractions, Chest expansion symmetric bilaterally, no rales, no ronchi, no dulness on percussion. CARDIAC: Normal SI and S2, Regular rate and rythm, no murmur, gallop, or rub. GASTROINTESTINAL: Abdomen is soft, non-tender, Non Rigid, No distention, Positive bowel sounds x4 quadrants, Liver normal. SKIN: Warm, dry, no rash, no bruise, no echmosis. EXTREMITIES: Bilateral lower extremities no edema, no phlabitus, pulse palpable , no contracture. Right upper and lower extremity weakness, slight slurring of speech, MUSCULOSKELETAL: Spine Normal, Non-tender, Normal range of motion, No swelling, no deformity, no clubbing, or cyanosis, the patient has no edema to bilateral lower extremities, dorsalis pedis pulses palpable bilaterally. NEUROLOGIC: The patient is awake, alert, oriented, slight slurring of speech, responding to yes/no questions appropriately, moving all extremities, cranial nerve intact, normal strenght, normal power, normal coordination, normal gait. Allergies Coded Allergies: No Known Allergy (Unverified , 06/18/17) PMH Change Social Hx No change Family Hx No change Assessment/Plan Impression CVA Hypertension Hyperlipidemia History of hepatitis B Plan Patient has been taking blood pressure medication and Lipitor and aspirin, patient had another episode of CVA, is getting physical therapy, Patient encouraged to follow with the primary care physician, Fall precaution, Patient on no short of medication, patient given all the medication for 1 month supply, Medications Home Meds Reported Medications Meclizine Hcl* (Meclizine Hcl*) 25 Mg Tablet, 25 MG PO TID, TAB 05/30/17 Atorvastatin* (Atorvastatin*) 80 Mg Tablet, 80 MG PO QHS, #30 TAB 05/30/17 Folic Acid* (Folic Acid*) 1 Mg Tablet, 1 MG PO DAILY, TAB 05/30/17 Aspirin (Aspirin) 81 Mg Chew, 81 MG PO DAILY, TAB.CHEW 05/30/17 Lisinopril* (Lisinopril*) 10 Mg Tablet, 10 MG PO DAILY, #30 TAB 05/30/17 Hydrochlorothiazide (Hydrochlorothiazide) 25 Mg Tablet, 25 MG PO DAILY, #30 TAB 05/30/17 Carvedilol* (Carvedilol*) 12.5 Mg Tablet, 12.5 MG PO BID, #60 TAB 05/30/17 Amlodipine Besylate* (Amlodipine Besylate*) 10 Mg Tablet, 10 MG PO DAILY, #30 TAB 05/30/17 [place]-3 Fatty Acids/Fish Oil (Fish Oil 1,000 mg Capsule) 1 Each Capsule, 1 EACH PO DAILY, CAP 05/30/17 FIONA ALVAREZ MD Jul 17, 2017 15:47
== END | disposition home or self-care (01) ==
LOC: DCC 15:21
PROVIDERS: ATTEND Internal Medicine
DX: I63.9 Cerebral infarction, unspecified (principal); I10 Essential (primary) hypertension; E78.5 Hyperlipidemia, unspecified; Z86.19 Personal history of other infectious and parasitic diseases; Z79.82 Long term (current) use of aspirin

== ENCOUNTER 2017-07-31 15:36 | Outpatient (CLI) | payer OTHER ==
[~2017-07-31] VITALS: Ht 172.7 cm; Wt 76.4 kg
[2017-07-31 15:51] VITALS: Ht 172.7 cm; Wt 76.4 kg
[2017-07-31 15:52] VITALS: BP 102/59; PULSE 72; RESP 18
--- NOTE | 2017-07-31 16:13 | PN ---
Date/Time of Note Date/Time of Note DATE: 07/31/17 TIME: 16:08 Outpatient Progress Note Chief Complaint CVA/hypertension/hyperlipidemia/ HPI CVA/patient had CVA, patient still has numbness in the right arm, patient has difficulty walking, able to walk with a walker, no fall, Patient also has impaired vision, especially on the right eye, Hypertension/patient has a history of hypertension, at present blood pressure is 102 systolic, but patient had 91 blood pressure at home, no nausea or vomiting, Hyperlipidemia/no xanthoma, on medication, Review of Systems Const: No Fever, no chills, no Wt. loss, no Fatigue, normal appetite, no diaphoresis. Eyes: No pain, no discharge, no redness, right eye impaired vision,, no foreign body. ENT: No pain, no bleeding, no congestion, no sore throat, no dysphagia, no discharge or rhinitis. Lymph: No adenopathy, no tender nodes, no lymphedema. Resp: No SOB, no cough, no sputum, no wheezing, no chest pain. CV: No chest pain, no palpitaions, no MEDEIROS, no PND, no edema. GI: Normal appetite, no pain, no nausea, no vomiting, no diarrhea, no blood, no constipation. : No frequency, no urgency, no dysuria, no hematuria, no flank pain, no discharge, no bleeding. Musc: no back pain, no neck pain, no knee pain, no restricted ROM. Skin: No rash, no skin lesions, no erythema, no laceration, no bruising, no pruritus. Neuro: No AHN, no dizziness, no syncope, no seizure, right side weakness, upper extremity more than lower, and right sided impaired vision, patient also has numbness in the right hand, Endo: No polyuria, no polydypsia, no dry-skin, no temp-intolerance. Psych: No hallucinations, no depression, no anxiety, no suicidal ideation. Ext: No edema, no pain, no ulcer, right-sided weakness, upper extremity more than lower, able to walk with a walker,. Physical Exam Vital Signs Date Time Temp Pulse Resp B/P Pulse Ox O2 Delivery O2 Flow Rate FiO2 07/31/17 15:52 98.4 72 18 102/59 94 Room Air General Appearance: A 57 year-old male who appears well-developed, well- nourished, in no acute distress. HEENT: Head normocephalic, atraumatic. Pupils equal, round, reactive to light and accommodate. Sclerae are no jaundice. Nasal turbinates pink without erythema or nasal discharge. Mucous membranes pink and moist without lesions. Oropharynx clear without any exudate or discharge. Impaired vision on the right side, NECK: Supple. Trachea midline, No thyromegaly, No cervical lymphadenopathy, No mass, No carotid bruits, No JVD, Carotid pulses 2+ bilaterally. PULMONARY: Clear to auscultaion bilaterally, No retractions, Chest expansion symmetric bilaterally, no rales, no ronchi, no dulness on percussion. CARDIAC: Normal SI and S2, Regular rate and rythm, no murmur, gallop, or rub. GASTROINTESTINAL: Abdomen is soft, non-tender, Non Rigid, No distention, Positive bowel sounds x4 quadrants, Liver normal. SKIN: Warm, dry, no rash, no bruise, no echmosis. EXTREMITIES: Bilateral lower extremities no edema, no phlabitus, pulse palpable , no contracture right-sided weakness, upper extremity more weaker than lower, uses walker for walking,. MUSCULOSKELETAL: Spine Normal, Non-tender, Normal range of motion, No swelling, no deformity, no clubbing, or cyanosis, the patient has no edema to bilateral lower extremities, dorsalis pedis pulses palpable bilaterally. NEUROLOGIC: The patient is awake, alert, oriented, responding to yes/no questions appropriately, moving all extremities, cranial nerve intact, normal strenght, normal power, normal coordination, unsteady gait. Without the walker , patient able to walk with a walker, Allergies Coded Allergies: No Known Allergy (Unverified , 06/18/17) PMH No change Social Hx No change Family Hx No change Assessment/Plan Impression CVA/right hemiparesis Hypertension now slightly hypotension Hyperlipidemia Hepatitis C Plan Patient education done, patient need to follow with the primary care physician, patient is to continue all medication, patient has all medication, Patient to follow with the primary care physician, and primary care physician to refer for ophthalmology consult, Fall precaution, We will reduce Coreg from 12.5 mg twice daily to 6.5 mg twice daily, Patient adjustment of medication will be done by primary care physician, Patient educated if any emergency to go to ER, Discussed with the sister, Medications Home Meds Reported Medications Meclizine Hcl* (Meclizine Hcl*) 25 Mg Tablet, 25 MG PO TID, TAB 05/30/17 Atorvastatin* (Atorvastatin*) 80 Mg Tablet, 80 MG PO QHS, #30 TAB 05/30/17 Folic Acid* (Folic Acid*) 1 Mg Tablet, 1 MG PO DAILY, TAB 05/30/17 Aspirin (Aspirin) 81 Mg Chew, 81 MG PO DAILY, TAB.CHEW 05/30/17 Lisinopril* (Lisinopril*) 10 Mg Tablet, 10 MG PO DAILY, #30 TAB 05/30/17 Hydrochlorothiazide (Hydrochlorothiazide) 25 Mg Tablet, 25 MG PO DAILY, #30 TAB 05/30/17 Carvedilol* (Carvedilol*) 12.5 Mg Tablet, 12.5 MG PO BID, #60 TAB 05/30/17 Amlodipine Besylate* (Amlodipine Besylate*) 10 Mg Tablet, 10 MG PO DAILY, #30 TAB 05/30/17 [place]-3 Fatty Acids/Fish Oil (Fish Oil 1,000 mg Capsule) 1 Each Capsule, 1 EACH PO DAILY, CAP 05/30/17 FIONA ALVAREZ MD Jul 31, 2017 16:13
== END 2017-07-31 17:00 | disposition home or self-care (01) ==
LOC: DCC 15:36
PROVIDERS: ATTEND Internal Medicine
DX: I69.951 Hemiplegia and hemiparesis following unspecified cerebrovascular disease affecting right dominant side (principal); I10 Essential (primary) hypertension; I95.9 Hypotension, unspecified; E78.5 Hyperlipidemia, unspecified; B19.20 Unspecified viral hepatitis C without hepatic coma
CPT/HCPCS: G0463